=== PATIENT | male | born 1945 | race Caucasian/White ===

== ENCOUNTER 2018-03-04 16:34 | Inpatient (IN) | payer MEDICARE ==
[2018-03-04] MEDS ORDERED: SODIUM CHLORIDE 0.9% 1,000 ML IV STA ×2 (16:47→17:49)
[2018-03-04] MEDS ORDERED: ACETAMINOPHEN IV (For NPO) 1,000 MG in EMPTY BAG 1 BAG IVPB STA (17:23)
[2018-03-04] MEDS ORDERED: KETOROLAC 30 MG/ML 1 ML VIAL IVP STA (17:23)
--- NOTE | 2018-03-04 17:23 | ED ---
General Adult HPI - General Chief complaint: Shortness of Breath Stated complaint: SOB, Chills Time Seen by Provider: 03/04/18 16:47 Source: patient, RN notes reviewed, old records reviewed Mode of arrival: wheelchair Limitations: no limitations - History of Present Illness Initial comments: This is a 72-year-old male to the ER for evaluation per patient comes in for evaluation of fever chills cough and shortness of breath. No travel history no sick contacts. No significant drooling medical and medical history. Patient has history of CVA TIA hypertension, no known recent fevers no known illnesses no known sick contacts. Patient has no recent hospitalizations. Patient states he just had some chills fevers and cough today wasn't feeling well denies abdominal pain, patient does have chronic hidradenitis and wound care to those areas - Related Data Home Medications Medication Instructions Recorded Confirmed Aspirin EC [Ecotrin Low Dose] 81 mg PO DAILY 03/04/18 03/04/18 Chlorpheniramine Maleate 4 mg PO DAILY PRN 03/04/18 03/04/18 Ferrous Sulfate [Feosol] 325 mg PO BID 03/04/18 03/04/18 Finasteride [Proscar] 5 mg PO DAILY 03/04/18 03/04/18 Metoprolol Succinate (ER) [Toprol 100 mg PO DAILY 03/04/18 03/04/18 Xl] Riboflavin [Vitamin B-2] 50 mg PO DAILY 03/04/18 03/04/18 Warfarin [Coumadin] 2 mg PO BID 03/04/18 03/04/18 Allergies Allergy/AdvReac Type Severity Reaction Status Date / Time No Known Allergies Allergy Verified 03/04/18 17:06 Review of Systems ROS Statement: Those systems with pertinent positive or pertinent negative responses have been documented in the HPI. ROS Other: All systems not noted in ROS Statement are negative. Past Medical History Past Medical History: CVA/TIA, Hypertension History of Any Multi-Drug Resistant Organisms: None Reported Additional Past Surgical History / Comment(s): cyst removal Past Psychological History: No Psychological Hx Reported Smoking Status: Never smoker Past Alcohol Use History: None Reported Past Drug Use History: None Reported General Exam Limitations: no limitations General appearance: alert, in no apparent distress, anxious, lethargic Head exam: Present: atraumatic, normocephalic, normal inspection Eye exam: Present: normal appearance, PERRL, EOMI. Absent: scleral icterus, conjunctival injection, periorbital swelling ENT exam: Present: normal exam, mucous membranes dry Neck exam: Present: normal inspection. Absent: tenderness, meningismus, lymphadenopathy Respiratory exam: Present: accessory muscle use, decreased breath sounds, prolonged expiratory. Absent: normal lung sounds bilaterally, respiratory distress, wheezes, rales, rhonchi, stridor Cardiovascular Exam: Present: normal rhythm, tachycardia, normal heart sounds. Absent: systolic murmur, diastolic murmur, rubs, gallop, clicks GI/Abdominal exam: Present: soft, normal bowel sounds. Absent: distended, tenderness, guarding, rebound, rigid Extremities exam: Present: normal inspection, full ROM, normal capillary refill. Absent: tenderness, pedal edema, joint swelling, calf tenderness Back exam: Present: normal inspection Neurological exam: Present: alert, oriented X3, CN II-XII intact Psychiatric exam: Present: normal affect, normal mood Skin exam: Present: warm, dry, intact, normal color. Absent: rash Course Vital Signs 03/04/18 03/04/18 16:40 17:00 Temperature 100.0 F H Pulse Rate 107 H Respiratory 20 20 Rate Blood Pressure 124/74 O2 Sat by Pulse 99 Oximetry - Reevaluation(s) Reevaluation #1: 03/04/18 18:31 Patient symptoms are improved with fever control, significant IV resuscitation and breathing treatment EKG Findings - EKG Comments: EKG Findings:: EKG shows A. fib rate of 103, QRS 02, QTc 442 Medical Decision Making - Medical Decision Making 72 male the ER for evaluation regarding fever cough congestion shortness of breath, pneumonia on exam, patient has inconclusive x-ray will be admitted for IV antibiotics and breathing treatments. Patient also has significant skin wounds chronic healing wounds we'll cover with Vanco for possible MRSA - Lab Data Result diagrams: 03/04/18 17:09 03/04/18 17:09 Lab Results 03/04/18 03/04/18 03/04/18 Range/Units 17:09 17:09 17:09 WBC 11.8 H (3.8-10.6) k/uL RBC 3.57 L (4.30-5.90) m/uL Hgb 10.0 L (13.0-17.5) gm/dL Hct 32.6 L (39.0-53.0) % MCV 91.5 (80.0-100.0) fL MCH 28.1 (25.0-35.0) pg MCHC 30.8 L (31.0-37.0) g/dL RDW 15.2 (11.5-15.5) % Plt Count 329 (150-450) k/uL Neutrophils % 95 % Lymphocytes % 4 % Monocytes % 1 % Eosinophils % 0 % Basophils % 0 % Neutrophils # 11.1 H (1.3-7.7) k/uL Lymphocytes # 0.4 L (1.0-4.8) k/uL Monocytes # 0.1 (0-1.0) k/uL Eosinophils # 0.1 (0-0.7) k/uL Basophils # 0.0 (0-0.2) k/uL Hypochromasia Slight PT (9.0-12.0) sec INR (<1.2) APTT (22.0-30.0) sec Sodium 136 L (137-145) mmol/L Potassium 4.7 (3.5-5.1) mmol/L Chloride 107 (98-107) mmol/L Carbon Dioxide 20 L (22-30) mmol/L Anion Gap 9 mmol/L BUN 17 (9-20) mg/dL Creatinine 1.70 H (0.66-1.25) mg/dL Est GFR (CKD-EPI)AfAm 46 (>60 ml/min/1.73 sqM) Est GFR (CKD-EPI)NonAf 40 (>60 ml/min/1.73 sqM) Glucose 118 H (74-99) mg/dL Plasma Lactic Acid Mahad (0.7-2.0) mmol/L Calcium 8.0 L (8.4-10.2) mg/dL Magnesium 1.7 (1.6-2.3) mg/dL Total Bilirubin 0.5 (0.2-1.3) mg/dL AST 20 (17-59) U/L ALT 12 L (21-72) U/L Alkaline Phosphatase 155 H (38-126) U/L Total Creatine Kinase <20 L (55-170) U/L CK-MB (CK-2) 0.5 (0.0-2.4) ng/mL CK-MB (CK-2) Rel Index Troponin I <0.012 (0.000-0.034) ng/mL NT-Pro-B Natriuret Pep pg/mL Total Protein 9.3 H (6.3-8.2) g/dL Albumin 2.9 L (3.5-5.0) g/dL 03/04/18 03/04/18 03/04/18 Range/Units 17:09 17:09 17:09 WBC (3.8-10.6) k/uL RBC (4.30-5.90) m/uL Hgb (13.0-17.5) gm/dL Hct (39.0-53.0) % MCV (80.0-100.0) fL MCH (25.0-35.0) pg MCHC (31.0-37.0) g/dL RDW (11.5-15.5) % Plt Count (150-450) k/uL Neutrophils % % Lymphocytes % % Monocytes % % Eosinophils % % Basophils % % Neutrophils # (1.3-7.7) k/uL Lymphocytes # (1.0-4.8) k/uL Monocytes # (0-1.0) k/uL Eosinophils # (0-0.7) k/uL Basophils # (0-0.2) k/uL Hypochromasia PT 16.6 H (9.0-12.0) sec INR 1.8 H (<1.2) APTT 25.0 (22.0-30.0) sec Sodium (137-145) mmol/L Potassium (3.5-5.1) mmol/L Chloride (98-107) mmol/L Carbon Dioxide (22-30) mmol/L Anion Gap mmol/L BUN (9-20) mg/dL Creatinine (0.66-1.25) mg/dL Est GFR (CKD-EPI)AfAm (>60 ml/min/1.73 sqM) Est GFR (CKD-EPI)NonAf (>60 ml/min/1.73 sqM) Glucose (74-99) mg/dL Plasma Lactic Acid Mahad 4.0 H* (0.7-2.0) mmol/L Calcium (8.4-10.2) mg/dL Magnesium (1.6-2.3) mg/dL Total Bilirubin (0.2-1.3) mg/dL AST (17-59) U/L ALT (21-72) U/L Alkaline Phosphatase (38-126) U/L Total Creatine Kinase (55-170) U/L CK-MB (CK-2) (0.0-2.4) ng/mL CK-MB (CK-2) Rel Index Troponin I (0.000-0.034) ng/mL NT-Pro-B Natriuret Pep 4700 pg/mL Total Protein (6.3-8.2) g/dL Albumin (3.5-5.0) g/dL - Radiology Data Radiology results: report reviewed (Chest x-ray negative), image reviewed Disposition Clinical Impression: Community acquired pneumonia, Fever Narrative: r/o Bacteremia Disposition: ADMITTED IP TO THIS HOSP Condition: Fair Is patient prescribed a controlled substance at d/c from ED?: No Referrals: Rosmery Mcrae MD [Primary Care Provider] - 1-2 days
[2018-03-04 17:26] LABS: Basophils % (A) 0 %; Eosinophils # (A) 0.1 k/uL (0-0.7); Eosinophils % (A) 0 %; HCT 32.6 % (39.0-53.0); Hypochromasia Slight; Lymphocytes # (A) 0.4 k/uL (1.0-4.8); Lymphocytes % (A) 4 %; MCH 28.1 pg (25.0-35.0); MCHC 30.8 g/dL (31.0-37.0); MCV 91.5 fL (80.0-100.0); Mean Platelet Volume 7.7; Monocytes # (A) 0.1 k/uL (0-1.0); Monocytes % (A) 1 %; Neutrophils # (A) 11.1 k/uL (1.3-7.7); Neutrophils % (A) 95 %; Platelet Count 329 k/uL (150-450); RBC 3.57 m/uL (4.30-5.90); RDW 15.2 % (11.5-15.5); WBC 11.8 k/uL (3.8-10.6)
[2018-03-04 17:35] LABS: INR 1.8 (<1.2); Prothrombin Time 16.6 sec (9.0-12.0)
[2018-03-04 17:36] LABS: Albumin 2.9 g/dL (3.5-5.0); Total Protein 9.3 g/dL (6.3-8.2)
[2018-03-04] MEDS ORDERED: ACETAMINOPHEN TAB 500 MG TAB PO STA (17:36)
[2018-03-04 17:37] LABS: Magnesium 1.7 mg/dL (1.6-2.3); Potassium 4.7 mmol/L (3.5-5.1); Total Bilirubin 0.5 mg/dL (0.2-1.3)
[2018-03-04 17:46] LABS: Creatine Kinase <20 U/L (55-170)
[2018-03-04] MEDS ORDERED: SODIUM CHLORIDE 0.9% 2,000 ML IV STA (17:49)
--- NOTE | 2018-03-04 17:56 | XR ---
EXAMINATION: XR chest 2V DATE AND TIME: 03/04/2018 5:30 PM ORDERING PROVIDER: Tomi Hart DO CLINICAL INDICATION: difficulty breathing TECHNIQUE: PA and lateral COMPARISON: None. DESCRIPTION: The lungs are clear. The pleural spaces are negative. The cardiac silhouette is not enla rged. The mediastinal and pleural silhouettes are unremarkable. The skeletal structures are intact wi thout focal findings. The soft tissues are unremarkable. IMPRESSION: NO ACUTE PROCESS.
[2018-03-04 17:59] LABS: Creatine Kinase MB 0.5 ng/mL (0.0-2.4); Troponin I <0.012 ng/mL (0.000-0.034)
[2018-03-04] MEDS ORDERED: PNEUMONIA PROTOCOL UTILIZED 1 EACH MISC PO PRN (18:18)
[2018-03-04] MEDS ORDERED: LEVOFLOXACIN 750MG-D5W PMX 750 MG in DEXTROSE/WATER 1 150ML.BAG IVPB STA (18:23)
[2018-03-04] MEDS ORDERED: VANCOMYCIN IV PER PHARMACY 1 EACH MISC MISCELLANE PRN (18:23)
[2018-03-04] MEDS ORDERED: VANCOMYCIN 2,250 MG in SODIUM CHLORIDE 0.9% 500 ML IVPB ONE (19:00)
[2018-03-04] MEDS: SODIUM CHLORIDE 0.9% 1,000 ML IV SCH (19:16)
[2018-03-04] MEDS ORDERED: ACETAMINOPHEN TAB 325 MG TAB PO PRN (20:54)
[2018-03-04] MEDS ORDERED: LORATADINE 10 MG TAB PO PRN (20:56)
[2018-03-04] MEDS ORDERED: RIBOFLAVIN 50 MG PO SCH (21:00)
[2018-03-04] MEDS: FERROUS SULFATE 325 MG TAB PO SCH (22:14)
[2018-03-04] MEDS: WARFARIN 1 MG TAB PO SCH (22:14)
[2018-03-04] MEDS: METOPROLOL SUCCINATE (ER) 100 MG TAB.ER.24H PO SCH (22:14)
[2018-03-04] MEDS: ASPIRIN 81 MG PO SCH (22:14)
[2018-03-05 00:39] LABS: Appearance,Urine Cloudy (Clear); Bilirubin,Urine Negative (Negative); Blood,Urine Negative (Negative); Color,Urine Yellow; Glucose,Urine (UA) Negative (Negative); Hyaline Casts,Urine 12 /lpf (0-2); Ketones,Urine Negative (Negative); Leukocyte Esterase,Urine Negative (Negative); Mucus,Urine Occasional /hpf; Nitrite,Urine Negative (Negative); PH, Urine 5.5 (5.0-8.0); Protein,Urine 1+ (Negative); RBC,Urine 2 /hpf (0-5); Specific Gravity,Urine 1.017 (1.001-1.035); WBC,Urine 2 /hpf (0-5)
[2018-03-05 05:40] LABS: Basophils % (A) 0 %; Eosinophils # (A) 0.1 k/uL (0-0.7); Eosinophils % (A) 1 %; HCT 30.1 % (39.0-53.0); HGB 9.3 gm/dL (13.0-17.5); Hypochromasia Marked; Lymphocytes # (A) 0.5 k/uL (1.0-4.8); Lymphocytes % (A) 4 %; MCH 29.3 pg (25.0-35.0); MCHC 30.9 g/dL (31.0-37.0); MCV 94.8 fL (80.0-100.0); Mean Platelet Volume 7.8; Monocytes # (A) 0.4 k/uL (0-1.0); Monocytes % (A) 4 %; Neutrophils # (A) 10.6 k/uL (1.3-7.7); Neutrophils % (A) 91 %; Platelet Count 227 k/uL (150-450); RBC 3.17 m/uL (4.30-5.90); RDW 15.1 % (11.5-15.5); WBC 11.7 k/uL (3.8-10.6)
[2018-03-05 05:47] LABS: INR 2.2 (<1.2); Prothrombin Time 19.5 sec (9.0-12.0)
[2018-03-05] MEDS: SODIUM CHLORIDE 0.9% 1,000 ML IV SCH ×4 (06:16→23:12)
[2018-03-05] MEDS: FINASTERIDE 5 MG TAB PO SCH (07:35)
[2018-03-05] MEDS: FERROUS SULFATE 325 MG TAB PO SCH ×2 (07:35→19:58)
--- NOTE | 2018-03-05 08:08 | XR ---
EXAMINATION TYPE: XR chest 2V DATE OF EXAM: 03/05/2018 COMPARISON: 03/04/2018 TECHNIQUE: PA and lateral views submitted. HISTORY: Cough FINDINGS: The heart is enlarged and there is hyperinflation. No pleural effusion or pneumothorax no overt failu re. Hyperinflation suggests COPD. Subsegmental linear changes at the right lung base. IMPRESSION: 1. COPD. Right basilar atelectasis or early infiltrate. Correlate clinically
[2018-03-05] MEDS ORDERED: ENOXAPARIN 40 MG/0.4 ML SYRINGE SQ SCH (09:00)
--- NOTE | 2018-03-05 10:28 | P.PN ---
Progress Note - Text This is an addendum to the dictated cardiology consultation. The patient has a history of chronic persistent atrial fibrillation, sebaceous cyst who presents with symptoms of progressive dyspnea, chills and shaking. He denies any PND, orthopnea or significant peripheral edema. According to him he has no history of cough. He did not check his temperature home. He has no history of documented CAD or CHF. He has been having draining from the sebaceous cyst. On examination his lungs are clear and he is in atrial fibrillation with no evidence of peripheral edema. His presentation is consistent with sepsis probably related to an infected sebaceous cyst. Patient has been on Humira up to a month ago so he is immunocompromise. I see no clear evidence to suggest CHF at this time either by chest x-ray normal by examination. His NT proBNP is elevated. I will obtain an echocardiogram with Doppler, increase his IV fluids, continue anticoagulation. 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 Thank you for this consult we will follow with you.
--- NOTE | 2018-03-05 10:28 | P.CRDCN ---
History of Present Illness Consult date: 03/05/18 Requesting physician: Yanet Larkin Consult reason: atrial fibrillation Chief complaint: Chills and shakes History of present illness: This is a 72-year-old gentleman with history of hypertension, chronic persistent atrial fibrillation for which he takes Coumadin. 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 Patient also has history of sebaceous cysts, he states he was on Humira for approximately 3 years and one month ago this at been discontinued. Since then he states that he's had significant drainage from his sebaceous cysts. Patient presents to the hospital on this occasion with symptoms of chills and shaking, he also states that he's noticed some mild increase in shortness of breath over the past one week or so. Chest x-ray on admission did not reveal any acute process. Subsequent EKG showed COPD. Right basilar atelectasis or early infiltrate. EKG shows atrial fibrillation with rapid ventricular response. Temperature on arrival 100.0, blood pressure 124/ 70 with a heart rate in the low 100s, 99% on room air. Temperature this morning 97.5, blood pressure 134/70 with a heart rate in the 50s, 99% on room air. White blood cell count 11.7, hemoglobin 10.0 on admission, 9.3 this morning. Lately count 329 on admission, 227 this morning. INR 2.2. Sodium 136 , potassium 4.7, BUN 17, creatinine 1.7. Plasma lactic acid 4.0. Calcium 8.0. Magnesium 1.7. Alk phos 155. Troponin negative. BNP level 4700. At the time of my examination this morning, patient denies any chills, no jittery feeling. Breathing overall is stable. Past Medical History Past Medical History: Atrial Fibrillation, CVA/TIA, Hyperlipidemia, Hypertension , Pneumonia, Prostate Disorder, Skin Disorder History of Any Multi-Drug Resistant Organisms: None Reported Past Surgical History: Appendectomy, Tonsillectomy Additional Past Surgical History / Comment(s): cyst removal-..pt stated has dnsg on hips Past Anesthesia/Blood Transfusion Reactions: No Reported Reaction Smoking Status: Former smoker - Past Family History Father Family Medical History: No Reported History Additional Family Medical History / Comment(s): at age 94 form"old age" Mother Family Medical History: Cancer Additional Family Medical History / Comment(s): mom at age 67 from pancreatic cancer Medications and Allergies Home Medications Medication Instructions Recorded Confirmed Type Aspirin EC [Ecotrin Low Dose] 81 mg PO HS 03/04/18 03/04/18 History Chlorpheniramine Maleate 4 mg PO HS PRN 03/04/18 03/04/18 History Ferrous Sulfate [Feosol] 325 mg PO BID 03/04/18 03/04/18 History Finasteride [Proscar] 5 mg PO DAILY 03/04/18 03/04/18 History Metoprolol Succinate (ER) [Toprol 100 mg PO HS 03/04/18 03/04/18 History Xl] Riboflavin [Vitamin B-2] 50 mg PO HS 03/04/18 03/04/18 History Warfarin [Coumadin] 1 mg PO HS 03/04/18 03/04/18 History Allergies Allergy/AdvReac Type Severity Reaction Status Date / Time No Known Allergies Allergy Verified 03/04/18 17:06 Physical Exam Vitals: Vital Signs Temp Pulse Pulse Resp BP BP Pulse Ox 03/05/18 07:37 97.5 F L 58 L 18 134/75 99 03/05/18 04:00 97.4 F L 59 L 18 125/71 100 03/04/18 23:58 61 18 03/04/18 23:56 97.1 F L 61 18 116/52 98 03/04/18 20:00 97.5 F L 78 18 139/83 97 03/04/18 19:56 98.6 F 98 20 101/56 99 03/04/18 18:45 100 20 100/56 98 03/04/18 18:15 110 H 20 100/63 98 03/04/18 18:00 100 20 104/57 100 03/04/18 17:45 105 H 20 116/71 99 03/04/18 17:30 113 H 20 120/76 99 03/04/18 17:15 108 H 20 120/78 98 03/04/18 17:00 105 H 20 112/80 98 03/04/18 16:55 114 H 20 114/70 99 03/04/18 16:40 100.0 F H 107 H 20 124/74 99 Intake and Output 03/04/18 03/05/18 03/05/18 22:59 06:59 14:59 Intake Total 800 Balance 800 Intake: IV 800 0.9 800 Other: Voiding Method Toilet Toilet Urinal Urinal Weight 104.326 kg 106.3 kg PHYSICAL EXAMINATION: GENERAL: 72-year-old gentleman in no acute distress examination. HEENT: Head is atraumatic, normocephalic. Pupils equal, round. Sclera anicteric. Conjunctiva are clear. Mucous membranes of the mouth are moist. Neck is supple. There is no elevated jugular venous pressure. No carotid bruit is heard. HEART EXAMINATION: Heart S1 and S2 irregularly irregular CHEST EXAMINATION: Lungs reveal fine crackles to bilateral bases. ABDOMEN: Soft, nontender. Bowel sounds are heard. No organomegaly noted. EXTREMITIES: 2+ peripheral pulses with no evidence of peripheral edema and no calf tenderness noted. NEUROLOGIC patient is awake, alert and oriented ?-3. . Results 03/05/18 05:26 03/04/18 17:09 Cardiac Enzymes 03/04/18 03/04/18 Range/Units 17:09 17:09 AST 20 (17-59) U/L CK-MB (CK-2) 0.5 (0.0-2.4) ng/mL Troponin I <0.012 (0.000-0.034) ng/mL Coagulation 03/04/18 03/05/18 Range/Units 17:09 05:26 PT 16.6 H 19.5 H (9.0-12.0) sec APTT 25.0 (22.0-30.0) sec CBC 03/04/18 03/05/18 Range/Units 17:09 05:26 WBC 11.8 H 11.7 H (3.8-10.6) k/uL RBC 3.57 L 3.17 L (4.30-5.90) m/uL Hgb 10.0 L 9.3 L (13.0-17.5) gm/dL Hct 32.6 L 30.1 L (39.0-53.0) % Plt Count 329 227 (150-450) k/uL Comprehensive Metabolic Panel 03/04/18 Range/Units 17:09 Sodium 136 L (137-145) mmol/L Potassium 4.7 (3.5-5.1) mmol/L Chloride 107 (98-107) mmol/L Carbon Dioxide 20 L (22-30) mmol/L BUN 17 (9-20) mg/dL Creatinine 1.70 H (0.66-1.25) mg/dL Glucose 118 H (74-99) mg/dL Calcium 8.0 L (8.4-10.2) mg/dL AST 20 (17-59) U/L ALT 12 L (21-72) U/L Alkaline Phosphatase 155 H (38-126) U/L Total Protein 9.3 H (6.3-8.2) g/dL Albumin 2.9 L (3.5-5.0) g/dL Current Medications Generic Name Dose Route Start Last Admin Trade Name Freq PRN Reason Stop Dose Admin Acetaminophen 650 mg 03/04/18 20:54 Tylenol Tab PO Q6HR PRN Fever and/ or Pain Albuterol/Ipratropium 3 ml 03/04/18 18:23 Duoneb 0.5 Mg-3 Mg/3 Ml Soln INHALATION RT-Q4H PRN shortness of breath Aspirin 81 mg 03/04/18 22:00 03/04/18 22:14 Aspirin PO 81 mg HS AZUCENA Administration Ferrous Sulfate 325 mg 03/04/18 21:00 03/05/18 07:35 Feosol PO 325 mg BID AZUCENA Administration Finasteride 5 mg 03/05/18 09:00 03/05/18 07:35 Proscar PO 5 mg DAILY AZUCENA Administration Levofloxacin 750 mg/ IV 150 mls @ 100 mls/hr 03/06/18 18:00 Solution IVPB Q48H AZUCENA Sodium Chloride 1,000 mls @ 100 mls/hr 03/04/18 18:30 03/05/18 06:16 Saline 0.9% IV 100 mls/hr .Q10H AZUCENA Administration Vancomycin HCl 1,750 mg/ 500 mls @ 167 mls/hr 03/05/18 21:00 Sodium Chloride IVPB Q24H AZUCENA Loratadine 10 mg 03/04/18 20:56 Claritin PO HS PRN Allergy Symptoms Metoprolol Succinate 100 mg 03/04/18 21:00 03/04/18 22:14 Toprol Xl PO 100 mg HS AZUCENA Administration Miscellaneous Information 1 each 03/04/18 18:18 Pneumonia Protocol Utilized PO ONCE PRN Per Protocol Warfarin Sodium 1 mg 03/04/18 21:00 03/04/18 22:14 Coumadin PO 1 mg HS AZUCENA Administration Intake and Output 03/04/18 03/05/18 03/05/18 22:59 06:59 14:59 Intake Total 800 Balance 800 Intake: IV 800 0.9 800 Other: Voiding Method Toilet Toilet Urinal Urinal Weight 104.326 kg 106.3 kg 03/05/18 05:26 03/04/18 17:09 EKG Interpretations (text) EKG on arrival here shows atrial fibrillation with moderately rapid ventricular response. Assessment and Plan Plan: Assessment and plan #1 sepsis, exact etiology unknown, could be secondary to sebaceous cyst infection. Lactic acid 4.0. #2 chronic persistent atrial fibrillation, on Coumadin for anticoagulation, therapeutic INR #3 hypertension #4 no prior documented coronary artery disease according to the patient #5 history of sebaceous cysts for which patient had been on Humira for 3 years, recently discontinued one month ago. #6 anemia #7 mildly abnormal renal function, creatinine 1.7. Plan We will continue current dose of Coumadin, obtain echocardiogram with Doppler study. We will also obtain records from patient's prior entertainer & comic. Further recommendations to follow. DNP note has been reviewed, I agree with a documented findings and plan of care. Patient was seen and examined.
[2018-03-05] MEDS ORDERED: SODIUM CHLORIDE 0.9% 1,000 ML IV SCH (10:30)
--- NOTE | 2018-03-05 11:27 | ECHOF ---
Referral Reason:afib MEASUREMENTS -------- HEIGHT: 182.9 cm WEIGHT: 106.1 kg BP: RVIDd: 4.0 cm (< 3.3) IVSd: 1.8 cm (0.6 - 1.1) LVIDd: 4.6 cm (3.9 - 5.3) LVPWd: 1.7 cm (0.6 - 1.1) IVSs: 2.3 cm LVIDs: 3.1 cm LVPWs: 2.3 cm LAESV Index (A-L): 45.76 ml/m Ao Diam: 3.7 cm (2.0 - 3.7) AV Cusp: 2.4 cm (1.5 - 2.6) LA Diam: 4.8 cm (2.7 - 3.8) MV EXCURSION: 21.692 mm (> 18.000) MV EF SLOPE: 144 mm/s (70 - 150) EPSS: 0.8 cm RAP: 5.00 mmHg RVSP: 57.01 mmHg FINDINGS -------- Atrial fibrillation. This was a technically good study. The left ventricular size is normal. There is severe concentric left ventricular hypertrophy. Ove rall left ventricular systolic function is normal with, an EF between 55 - 60 %. The right ventricle is moderately enlarged. LA is severely dilated >40 ml/m2 RA appears enlarged. Aortic valve is trileaflet and is mildly thickened. Moderate mitral regurgitation is present. Moderate to severe tricuspid regurgitation present. There is moderate pulmonary hypertension. The right ventricular systolic pressure, as measured by Doppler, is 57.01mmHg. Pulmonic valve appears structurally normal. The aortic root size is normal. The inferior vena cava is mildly dilated. The pericardium is normal. CONCLUSIONS -------- 1. Atrial fibrillation. 2. This was a technically good study. 3. The left ventricular size is normal. 4. There is severe concentric left ventricular hypertrophy. 5. Overall left ventricular systolic function is normal with, an EF between 55 - 60 %. 6. The right ventricle is moderately enlarged. 7. LA is severely dilated >40 ml/m2 8. RA appears enlarged. 9. Aortic valve is trileaflet and is mildly thickened. 10. Moderate mitral regurgitation is present. 11. Moderate to severe tricuspid regurgitation present. 12. There is moderate pulmonary hypertension. 13. The right ventricular systolic pressure, as measured by Doppler, is 57.01mmHg. 14. Pulmonic valve appears structurally normal. 15. The aortic root size is normal. 16. The inferior vena cava is mildly dilated. 17. The pericardium is normal. DATA ENTRY ASSISTANT: Faustina Manzo RDCS
[2018-03-05] MEDS: PANTOPRAZOLE 40 MG TABLET PO SCH (11:50)
--- NOTE | 2018-03-05 12:01 | P.HPIM ---
Addendum entered and electronically signed by Dian Page PA-C 03/05/18 12: 02: Possible acute kidney injury: Creatinine 1.7 on admission. Baseline creatinine unknown. Continue with IV fluid hydration. Monitor closely while on vancomycin. Original Note: History of Present Illness H&P Date: 03/05/18 Chief Complaint: Severe chills This is a 72-year-old male, patient of Dr. Mcrae. He has a known past medical history of chronic sebaceous cysts of the thighs, hypertension and CVA. Patient reports he had been in good health yesterday afternoon started having severe chills and could not get warm. Reports that his teeth were chattering. He called his son and his son brought him into the emergency room. He is found to have a temp of 100 and initially started on Levaquin for possible pneumonia. Vancomycin also added because of the chronic sebaceous cysts and concerns for MRSA. His second chest x-ray showed a possible early infiltrate. Infectious disease and cardiology consulted. Patient did have elevated BNP of 4200 on admission. Troponins were negative. Patient seen by cardiology. They recommend to continue with fluids for patient's sepsis. Patient was on Humira for these sebaceous cysts. He stopped them about a month ago. And since then has had more drainage from the cyst. Patient denies any chest pain or cough. Does admit to having some shortness of breath. White count admission 11.8 lactic acid 4 fever of 100. His receiving IV vancomycin and Levaquin and IV fluids. Blood cultures pending. Review of Systems Please refer to HPI otherwise unremarkable Past Medical History Past Medical History: Atrial Fibrillation, CVA/TIA, Hyperlipidemia, Hypertension , Pneumonia, Prostate Disorder, Skin Disorder History of Any Multi-Drug Resistant Organisms: None Reported Past Surgical History: Appendectomy, Tonsillectomy Additional Past Surgical History / Comment(s): cyst removal-..pt stated has dnsg on hips Past Anesthesia/Blood Transfusion Reactions: No Reported Reaction Smoking Status: Former smoker - Past Family History Father Family Medical History: No Reported History Additional Family Medical History / Comment(s): at age 94 form"old age" Mother Family Medical History: Cancer Additional Family Medical History / Comment(s): mom at age 67 from pancreatic cancer Medications and Allergies Home Medications Medication Instructions Recorded Confirmed Type Aspirin EC [Ecotrin Low Dose] 81 mg PO HS 03/04/18 03/04/18 History Chlorpheniramine Maleate 4 mg PO HS PRN 03/04/18 03/04/18 History Ferrous Sulfate [Feosol] 325 mg PO BID 03/04/18 03/04/18 History Finasteride [Proscar] 5 mg PO DAILY 03/04/18 03/04/18 History Metoprolol Succinate (ER) [Toprol 100 mg PO HS 03/04/18 03/04/18 History Xl] Riboflavin [Vitamin B-2] 50 mg PO HS 03/04/18 03/04/18 History Warfarin [Coumadin] 1 mg PO HS 03/04/18 03/04/18 History Allergies Allergy/AdvReac Type Severity Reaction Status Date / Time No Known Allergies Allergy Verified 03/04/18 17:06 Physical Exam Vitals: Vital Signs Temp Pulse Pulse Resp BP BP Pulse Ox 03/05/18 11:44 97.2 F L 63 18 117/63 96 03/05/18 07:37 97.5 F L 58 L 18 134/75 99 03/05/18 04:00 97.4 F L 59 L 18 125/71 100 03/04/18 23:58 61 18 03/04/18 23:56 97.1 F L 61 18 116/52 98 03/04/18 20:00 97.5 F L 78 18 139/83 97 03/04/18 19:56 98.6 F 98 20 101/56 99 03/04/18 18:45 100 20 100/56 98 03/04/18 18:15 110 H 20 100/63 98 03/04/18 18:00 100 20 104/57 100 03/04/18 17:45 105 H 20 116/71 99 03/04/18 17:30 113 H 20 120/76 99 03/04/18 17:15 108 H 20 120/78 98 03/04/18 17:00 105 H 20 112/80 98 03/04/18 16:55 114 H 20 114/70 99 03/04/18 16:40 100.0 F H 107 H 20 124/74 99 Intake and Output 03/04/18 03/05/18 03/05/18 22:59 06:59 14:59 Intake Total 800 Balance 800 Intake: IV 800 0.9 800 Other: Voiding Method Toilet Toilet Urinal Urinal Weight 104.326 kg 106.3 kg Head normocephalic Neck supple Lungs clear to auscultation bilaterally no wheezing or crackles Heart regular rate and rhythm S1-S2, no rub or gallop Abdomen is soft nontender nondistended positive bowel sounds no hepatosplenomegaly Extremities no edema. Both thighs have sebaceous cysts that are bandaged. The visualized right hip showing cysts that are open and bloody drainage. Also chronic changes to the skin. Neuro alert and orientated to 3 Results CBC & Chem 7: 03/05/18 05:26 03/04/18 17:09 Labs: Abnormal Lab Results - Last 24 Hours (Table) 03/04/18 03/04/18 03/04/18 Range/Units 17:09 17:09 17:09 WBC 11.8 H (3.8-10.6) k/uL RBC 3.57 L (4.30-5.90) m/uL Hgb 10.0 L (13.0-17.5) gm/dL Hct 32.6 L (39.0-53.0) % MCHC 30.8 L (31.0-37.0) g/dL Neutrophils # 11.1 H (1.3-7.7) k/uL Lymphocytes # 0.4 L (1.0-4.8) k/uL PT (9.0-12.0) sec INR (<1.2) Sodium 136 L (137-145) mmol/L Carbon Dioxide 20 L (22-30) mmol/L Creatinine 1.70 H (0.66-1.25) mg/dL Glucose 118 H (74-99) mg/dL Plasma Lactic Acid Mahad (0.7-2.0) mmol/L Calcium 8.0 L (8.4-10.2) mg/dL ALT 12 L (21-72) U/L Alkaline Phosphatase 155 H (38-126) U/L Total Creatine Kinase <20 L (55-170) U/L Total Protein 9.3 H (6.3-8.2) g/dL Albumin 2.9 L (3.5-5.0) g/dL Urine Protein (Negative) Hyaline Casts (0-2) /lpf Urine Mucus (None) /hpf 03/04/18 03/04/1818 Range/Units 17:09 17:09 00:25 WBC (3.8-10.6) k/uL RBC (4.30-5.90) m/uL Hgb (13.0-17.5) gm/dL Hct (39.0-53.0) % MCHC (31.0-37.0) g/dL Neutrophils # (1.3-7.7) k/uL Lymphocytes # (1.0-4.8) k/uL PT 16.6 H (9.0-12.0) sec INR 1.8 H (<1.2) Sodium (137-145) mmol/L Carbon Dioxide (22-30) mmol/L Creatinine (0.66-1.25) mg/dL Glucose (74-99) mg/dL Plasma Lactic Acid Mahad 4.0 H* (0.7-2.0) mmol/L Calcium (8.4-10.2) mg/dL ALT (21-72) U/L Alkaline Phosphatase (38-126) U/L Total Creatine Kinase (55-170) U/L Total Protein (6.3-8.2) g/dL Albumin (3.5-5.0) g/dL Urine Protein 1+ H (Negative) Hyaline Casts 12 H (0-2) /lpf Urine Mucus Occasional H (None) /hpf 03/05/18 03/05/18 Range/Units 05:26 05:26 WBC 11.7 H (3.8-10.6) k/uL RBC 3.17 L (4.30-5.90) m/uL Hgb 9.3 L (13.0-17.5) gm/dL Hct 30.1 L (39.0-53.0) % MCHC 30.9 L (31.0-37.0) g/dL Neutrophils # 10.6 H (1.3-7.7) k/uL Lymphocytes # 0.5 L (1.0-4.8) k/uL PT 19.5 H (9.0-12.0) sec INR 2.2 H (<1.2) Sodium (137-145) mmol/L Carbon Dioxide (22-30) mmol/L Creatinine (0.66-1.25) mg/dL Glucose (74-99) mg/dL Plasma Lactic Acid Mahad (0.7-2.0) mmol/L Calcium (8.4-10.2) mg/dL ALT (21-72) U/L Alkaline Phosphatase (38-126) U/L Total Creatine Kinase (55-170) U/L Total Protein (6.3-8.2) g/dL Albumin (3.5-5.0) g/dL Urine Protein (Negative) Hyaline Casts (0-2) /lpf Urine Mucus (None) /hpf Microbiology - Last 24 Hours (Table) 03/05/18 00:25 Urine Culture - Preliminary Urine,Voided Thrombosis Risk Factor Assmnt - Choose All That Apply Any of the Below Risk Factors Present?: No Other Risk Factors: Yes Each Risk Factor Represents 2 Points: Age 61-74 years Other congenital or acquired thrombophilia - If yes, enter type in comment: No Thrombosis Risk Factor Assessment Total Risk Factor Score: 2 Thrombosis Risk Factor Assessment Level: Low Risk Assessment and Plan Assessment: 1. Sepsis present on admission with fever and leukocytosis. Patient had a lactic acid level of 4. Sepsis possibly related to sebaceous cyst infection or questionable pneumonia. Patient started on Levaquin and vancomycin in the ER. Infectious disease consulted. Blood culture pending. Continue with IV fluids 2. Chronic persistent atrial fibrillation anticoagulated with Coumadin INR therapeutic. Continue with current Coumadin dose 3. Anemia with known iron deficiency anemia. Continue iron supplement. Check iron studies. Also check stool for occult blood. Patient does report a colonoscopy about 2 years ago with polyps. He does occasionally have black stools. 4. History of sebaceous cysts of the thighs was on Humira which was discontinued about a month ago. Follows up with Dr. Wisdom and has had drainage of these cysts. Patient will be evaluated by infectious disease 5. Essential hypertension 6. History of CVA 7. Moderate pulmonary hypertension and moderate to severe tricuspid regurgitation noted on echo GI prophylaxis Protonix and DVT prophylaxis Coumadin Time with Patient: Greater than 30 (Greater than 60% of the total time spent in counseling and coordination of care.I performed an examination of the patient and discussed their management with the physician Drive In Teller. I have reviewed the Physician Drive In Teller's notes and agree with the documented findings and plan of care)
[2018-03-05 12:17] LABS: Calcium 7.7 mg/dL (8.4-10.2); Potassium 5.5 mmol/L (3.5-5.1)
[2018-03-05] MEDS ORDERED: SODIUM POLYSTYRENE SULFONATE 15 GM/60 ML BOTTLE PO STA (16:38)
[2018-03-05 17:05] LABS: Iron Saturation 11.48 (15.00-50.00)
[2018-03-05] MEDS: VANCOMYCIN 1,750 MG in SODIUM CHLORIDE 0.9% 500 ML IVPB SCH (19:57)
[2018-03-05] MEDS: ASPIRIN 81 MG PO SCH (19:58)
[2018-03-05] MEDS: METOPROLOL SUCCINATE (ER) 100 MG TAB.ER.24H PO SCH (19:58)
[2018-03-05] MEDS: WARFARIN 1 MG TAB PO SCH (19:58)
[2018-03-05] MEDS: IPRATROPIUM-ALBUTEROL 3 ML NEB INHALATION PRN (23:44)
[2018-03-06] MEDS: cefTRIAXone IN SWFI 1,000 MG/10 ML SYRINGE IVP SCH ×2 (00:06→23:46)
--- NOTE | 2018-03-06 05:13 | CONS ---
CONSULTATION DATE OF SERVICE: 03/05/2018. REASON FOR CONSULTATION: Fever and sepsis. HISTORY OF PRESENT ILLNESS: The patient is a 72-year-old, male, well known to my service. The patient did have a history of hidradenitis suppurativa with multiple lesions mostly around the gluteal area for which the patient has been under the care of Dr. Alexandre dermatology and the patient has been on Humira for couple of years now. Apparently the patient was noticed to have no significant improvement in his lesions, hence the Humira has been put on hold for about a month now. The patient says he has more serous drainage from his wounds on the bilateral gluteal and thigh area. Humira has been put on hold. The patient was doing okay yesterday morning, however in the afternoon, started having the rigors and chills with teeth chattering and feeling very weak. With these symptoms, the patient was brought in to the [facility] ER for further evaluation. On arrival to the ER, the patient did have a low-grade fever of 100. The patient's white count was elevated at 11.8. The patient did have a UA that was negative. The patient initially chest x-ray reported to be no acute process. Repeat x-ray done this morning is showing a right basilar infiltrate. Correlate clinically. The patient has been started on Levaquin. Vancomycin has been added for possible infected wound. Infectious Disease was consulted for further recommendation of antibiotic therapy. The patient currently did have very mild cough, but not bringing up any sputum. No chest pain. Denies any worsening pain to his wound area. No urinary symptoms and no diarrhea. REVIEW OF SYSTEMS: Constitutional: Positive for weakness along with rigors and chills. Eyes: No complaint. ENT no complaint. Respiratory as per HPI Cardiovascular: No complaint. Genitourinary no complaint. Gastrointestinal: No complaint. Musculoskeletal no complaint. INTEGUMENTARY: As per HPI. Psychological: No complaint. Endocrine: No complaint. Neurologic: No complaint. PAST MEDICAL HISTORY: Significant for hidradenitis suppurativa, history of atrial fibrillation, CVA, TIA, hypertension, hyperlipidemia, and prostate disorder. PAST SURGICAL HISTORY: Appendectomy, tonsillectomy, multiple debridement of his wounds. SOCIAL HISTORY: Remote history of smoking. No drinking or drug use. FAMILY HISTORY: Father of old age at 94. Mother history of pancreatic cancer. ALLERGIES: No known drug allergies. MEDICATION: Currently include the patient is on Tylenol, DuoNeb, aspirin, iron sulfate. Proscar, Levaquin 750 Q 48, Claritin, Toprol-XL, Protonix, vancomycin and Coumadin. EXAMINATION: Blood pressure is 142/58 with a pulse of 87, temperature of 98, T-max is 100. He is 97% on room air. General description is an elderly male lying in bed in no distress. No tachypnea or accessory muscles of respiration use. HEENT: Shows pallor. No scleral icterus. Oral mucous membrane is dry. He has no pharyngeal erythema or thrush. Neck: Trachea is central. No thyromegaly. Lungs unlabored breathing with decreased breath sounds in the bases. No wheeze or crackles. Heart S1-S2 regular rate and rhythm. ABDOMEN: Soft, no tenderness. No guarding or rigidity. Extremities: No edema of feet. Examination of the wound on the gluteal area currently with no significant cellulitis or any drainage was noted. Neurological: Patient is awake, alert, oriented times three. Mood and affect normal. LABS: Hemoglobin is 10 with white count 11.8. His BUN is 19, creatinine 1.80. Potassium was 5.5. Lactic acid was 4. Liver enzymes are normal. The urine is negative. Chest x-ray developing right lower lobe infiltrate. DIAGNOSTIC IMPRESSION AND PLAN: 1. Patient admitted to the hospital with generalized weakness with rigors and chills in a patient who did have a fever and features of sepsis with elevated white count and lactic acid. Source is likely a right lower lobe pneumonia. However, infected wound not entirely excluded to be the likely secondary source. We will need to cover for the community-acquired pathogen as well as composite skin ronald for the underlying possible cellulitis. His abdomen was soft on clinical examination and urine was not significantly positive making those two the less likely sources. 2. Patient who does have a borderline kidney function . PLAN: 1. We will try to obtain sputum for Gram stain culture and sensitivity. 2. The patient will be treated with vancomycin pharmacy to dose, target of 15. However watching his kidney function closely to cover for the wound infection and cellulitis. 3. Rocephin 1 g daily will be added and continue Levaquin for underlying possible pneumonia likely community-acquired. 4. Local wound care with Aquacel Silver dressing. 5. We will follow up on clinical condition and culture to further adjust medication if needed. Thank you for this consultation. We will follow this patient along with you. MMODL / IJN: [id number] /
[2018-03-06 06:25] LABS: Basophils % (A) 0 %; Eosinophils % (A) 1 %; HGB 8.5 gm/dL (13.0-17.5); Hypochromasia Marked; Lymphocytes # (A) 0.5 k/uL (1.0-4.8); Lymphocytes % (A) 7 %; MCH 28.5 pg (25.0-35.0); MCHC 30.2 g/dL (31.0-37.0); MCV 94.4 fL (80.0-100.0); Mean Platelet Volume 8.1; Monocytes # (A) 0.4 k/uL (0-1.0); Monocytes % (A) 5 %; Neutrophils # (A) 6.1 k/uL (1.3-7.7); Neutrophils % (A) 85 %; Platelet Count 209 k/uL (150-450); RBC 2.97 m/uL (4.30-5.90); RDW 15.3 % (11.5-15.5); WBC 7.2 k/uL (3.8-10.6)
[2018-03-06 06:31] LABS: INR 2.3 (<1.2); Prothrombin Time 20.4 sec (9.0-12.0)
[2018-03-06 06:42] LABS: Albumin 2.3 g/dL (3.5-5.0); Calcium 7.7 mg/dL (8.4-10.2); Potassium 4.6 mmol/L (3.5-5.1); Total Bilirubin 0.4 mg/dL (0.2-1.3); Total Protein 7.9 g/dL (6.3-8.2)
[2018-03-06] MEDS: IPRATROPIUM-ALBUTEROL 3 ML NEB INHALATION PRN (06:57)
[2018-03-06] MEDS: FINASTERIDE 5 MG TAB PO SCH (07:58)
[2018-03-06] MEDS: PANTOPRAZOLE 40 MG TABLET PO SCH (07:58)
[2018-03-06] MEDS: FERROUS SULFATE 325 MG TAB PO SCH ×2 (07:59→21:23)
[2018-03-06] MEDS: MAGNESIUM SULFATE-D5W PMX 1 GM in DEXTROSE/WATER 1 100ML.BAG IVPB SCH ×2 (09:33→10:42)
[2018-03-06] MEDS ORDERED: IPRATROPIUM-ALBUTEROL 3 ML NEB INHALATION PRN (10:23)
--- NOTE | 2018-03-06 10:39 | P.PN ---
<Dian Page - Last Filed: 03/06/18 10:25> Subjective Progress Note Date: 03/06/18 This is a 72-year-old male, patient of Dr. Mcrae. He has a known past medical history of chronic sebaceous cysts of the thighs, hypertension and CVA. Patient reports he had been in good health yesterday afternoon started having severe chills and could not get warm. Reports that his teeth were chattering. He called his son and his son brought him into the emergency room. He is found to have a temp of 100 and initially started on Levaquin for possible pneumonia. Vancomycin also added because of the chronic sebaceous cysts and concerns for MRSA. His second chest x-ray showed a possible early infiltrate. Infectious disease and cardiology consulted. Patient did have elevated BNP of 4200 on admission. Troponins were negative. Patient seen by cardiology. They recommend to continue with fluids for patient's sepsis. Patient was on Humira for these sebaceous cysts. He stopped them about a month ago. And since then has had more drainage from the cyst. Patient denies any chest pain or cough. Does admit to having some shortness of breath. White count admission 11.8 lactic acid 4 fever of 100. His receiving IV vancomycin and Levaquin and IV fluids. Blood cultures pending. 03/06/2018 patient had a 25 beat run of V. tach this morning. He is currently normal sinus rhythm. Magnesium was 1.6 likely the contributing factor to the nonsustained V. tach. He is receiving magnesium supplement. Patient did have some shortness of breath at that time. Also, patient had a drop in his oxygen saturation last night and had to be placed on the Ventimask for short period time. He received a breathing treatment. And is now on 5 L oxygen satting at 94%. Patient reports that his breathing is improving. Still denies cough. But on exam there are some coarse breath sounds. Repeat chest x-ray ordered. Patient does report having a past history of smoking and COPD. Objective - Vital Signs Vital signs: Vital Signs Temp 97.1 F L 03/06/18 08:00 Pulse 93 03/06/18 08:00 Resp 20 03/06/18 08:00 BP 111/61 03/06/18 08:00 Pulse Ox 94 L 03/06/18 08:00 Intake & Output 03/05/18 03/06/18 03/06/18 18:59 06:59 18:59 Intake Total 240 480 300 Output Total 600 Balance 240 -120 300 Weight 106.5 kg Intake: Oral 240 480 300 Output: Urine 600 Other: Voiding Method Toilet Urinal - Exam Head normocephalic Neck supple Lungs coarse breath sounds on the left Heart irregular. A. fib on monitor Abdomen is soft nontender nondistended positive bowel sounds no hepatosplenomegaly Extremities no edema Neuro alert and orientated to 3 - Labs CBC & Chem 7: 03/06/18 05:54 03/06/18 05:54 Labs: Abnormal Lab Results - Last 24 Hours (Table) 03/04/18 03/05/18 03/06/18 Range/Units 17:09 05:26 05:54 RBC 2.97 L (4.30-5.90) m/uL Hgb 8.5 L (13.0-17.5) gm/dL Hct 28.0 L (39.0-53.0) % MCHC 30.2 L (31.0-37.0) g/dL Lymphocytes # 0.5 L (1.0-4.8) k/uL PT (9.0-12.0) sec INR (<1.2) Sodium (137-145) mmol/L Potassium 5.5 H (3.5-5.1) mmol/L Chloride 113 H (98-107) mmol/L Carbon Dioxide 20 L (22-30) mmol/L Creatinine 1.80 H (0.66-1.25) mg/dL Glucose 100 H (74-99) mg/dL Calcium 7.7 L (8.4-10.2) mg/dL Iron 28 L (65-175) ug/dL Iron Saturation 11.48 L (15.00-50.00) ALT (21-72) U/L Alkaline Phosphatase (38-126) U/L Albumin (3.5-5.0) g/dL 03/06/18 03/06/18 Range/Units 05:54 05:54 RBC (4.30-5.90) m/uL Hgb (13.0-17.5) gm/dL Hct (39.0-53.0) % MCHC (31.0-37.0) g/dL Lymphocytes # (1.0-4.8) k/uL PT 20.4 H (9.0-12.0) sec INR 2.3 H (<1.2) Sodium 135 L (137-145) mmol/L Potassium (3.5-5.1) mmol/L Chloride 111 H (98-107) mmol/L Carbon Dioxide 18 L (22-30) mmol/L Creatinine 1.60 H (0.66-1.25) mg/dL Glucose (74-99) mg/dL Calcium 7.7 L (8.4-10.2) mg/dL Iron (65-175) ug/dL Iron Saturation (15.00-50.00) ALT 18 L (21-72) U/L Alkaline Phosphatase 164 H (38-126) U/L Albumin 2.3 L (3.5-5.0) g/dL Microbiology - Last 24 Hours (Table) 03/05/18 00:25 Urine Culture - Final Urine,Voided 03/06/18 00:04 Sputum Culture - Preliminary Sputum 03/04/18 17:09 Blood Culture - Preliminary Blood No Growth after 24 hours Assessment and Plan Assessment: 1. Sepsis present on admission with fever and leukocytosis. Patient had a lactic acid level of 4. Sepsis possibly related pneumonia and sebaceous cysts of the thighs. Patient seen evaluated by infectious disease. The antibiotics adjusted. Currently on Levaquin and Rocephin and vancomycin. Blood cultures are negative so far. Repeat chest x-ray. White count decreased from 11.7-7.2 2. Chronic persistent atrial fibrillation anticoagulated with Coumadin INR therapeutic. Continue with current Coumadin dose 3. Anemia with known iron deficiency anemia. Continue iron supplement. Iron level 28 and iron saturation 11.48 Also check stool for occult blood. Patient does report a colonoscopy about 2 years ago with polyps. He does occasionally have black stools. Hemoglobin 8.5 4. History of sebaceous cysts of the thighs was on Humira which was discontinued about a month ago. Follows up with Dr. Wisdom and has had drainage of these cysts. Patient will be evaluated by infectious disease 5. Essential hypertension 6. History of CVA 7. Moderate pulmonary hypertension and moderate to severe tricuspid regurgitation noted on echo 8. Hypoxemia possibly related to patient's pneumonia and COPD. Patient required Ventimask and is now on 6 L nasal cannula satting at 94%. Patient started on nebulizer treatments 4 times a day and as needed. Repeat chest x-ray 9. Episode of nonsustained ventricular tachycardia likely secondary to hypo- magnesium. Magnesium being replaced. Cardiology following. Continue telemetry monitoring. Check thyroid level 10. Acute kidney injury: Likely related to dehydration and sepsis. Improving. Continue fluids at 50 mL an hour. Patient reports no history of kidney disease. Monitor closely while on vancomycin 11. Severe protein calorie malnutrition: Start ensure GI prophylaxis Protonix and DVT prophylaxis Coumadin I performed an examination of the patient and discussed their management with the physician Banking Paralegal. I have reviewed the Physician Banking Paralegal's notes and agree with the documented findings and plan of care <Cassy Diana - Last Filed: 03/06/18 14:36> Objective - Vital Signs Vital signs: Vital Signs Temp 97.1 F L 03/06/18 12:00 Pulse 86 03/06/18 12:00 Resp 20 03/06/18 12:00 BP 127/60 03/06/18 12:00 Pulse Ox 91 L 03/06/18 12:00 Intake & Output 03/05/18 03/06/18 03/06/18 18:59 06:59 18:59 Intake Total 240 480 500 Output Total 600 300 Balance 240 -120 200 Weight 106.5 kg Intake: Intake, IV Titration 200 Amount Magnesium Sulfate-D5w Pmx 200 1 gm In Dextrose/Water 1 100ml.bag @ 100 mls/hr IVPB Q1H [facility] Rx#: [id number] Oral 240 480 300 Output: Urine 600 300 Other: Voiding Method Toilet Urinal - Labs CBC & Chem 7: 03/06/18 05:54 03/06/18 05:54 Labs: Abnormal Lab Results - Last 24 Hours (Table) 03/04/18 03/06/18 03/06/18 Range/Units 17:09 05:54 05:54 RBC 2.97 L (4.30-5.90) m/uL Hgb 8.5 L (13.0-17.5) gm/dL Hct 28.0 L (39.0-53.0) % MCHC 30.2 L (31.0-37.0) g/dL Lymphocytes # 0.5 L (1.0-4.8) k/uL PT 20.4 H (9.0-12.0) sec INR 2.3 H (<1.2) Sodium (137-145) mmol/L Chloride (98-107) mmol/L Carbon Dioxide (22-30) mmol/L Creatinine (0.66-1.25) mg/dL POC Glucose (mg/dL) (75-99) mg/dL Calcium (8.4-10.2) mg/dL Iron 28 L (65-175) ug/dL Iron Saturation 11.48 L (15.00-50.00) ALT (21-72) U/L Alkaline Phosphatase (38-126) U/L Albumin (3.5-5.0) g/dL 03/06/18 03/06/18 Range/Units 05:54 11:49 RBC (4.30-5.90) m/uL Hgb (13.0-17.5) gm/dL Hct (39.0-53.0) % MCHC (31.0-37.0) g/dL Lymphocytes # (1.0-4.8) k/uL PT (9.0-12.0) sec INR (<1.2) Sodium 135 L (137-145) mmol/L Chloride 111 H (98-107) mmol/L Carbon Dioxide 18 L (22-30) mmol/L Creatinine 1.60 H (0.66-1.25) mg/dL POC Glucose (mg/dL) 157 H (75-99) mg/dL Calcium 7.7 L (8.4-10.2) mg/dL Iron (65-175) ug/dL Iron Saturation (15.00-50.00) ALT 18 L (21-72) U/L Alkaline Phosphatase 164 H (38-126) U/L Albumin 2.3 L (3.5-5.0) g/dL Microbiology - Last 24 Hours (Table) 03/05/18 00:25 Urine Culture - Final Urine,Voided 03/06/18 00:04 Sputum Culture - Preliminary Sputum 03/04/18 17:09 Blood Culture - Preliminary Blood No Growth after 24 hours Assessment and Plan Assessment: Patient seen and examined. Patient had shortness of breath and hypoxia over night. He was on ventimask, has been titrated down to 5L NC. He states he is starting to cough. Denies fevers and chills. Echo shows moderate pulmonary hypertension. Cardiology planning [facility]. ABX for RLL pneumonia and cellulitis per ID. Monitor hemoglobin. Repeat CXR pending. Increase Iron to BID. Check FOB. Duonebs. Add Pulmicort, replace Mag. Pending CXR further recommendations pending. ~Cassy Diana,
[2018-03-06] MEDS: IPRATROPIUM-ALBUTEROL 3 ML NEB INHALATION SCH ×4 (10:44→19:42)
[2018-03-06] MEDS: SODIUM CHLORIDE 0.9% 1,000 ML IV SCH ×2 (10:58→10:59)
--- NOTE | 2018-03-06 11:33 | P.PN ---
Progress Note - Text This is an addendum to the dictated cardiology consultation. The patient presents with symptoms of diaphoresis, numbness in the hands, dyspnea while at rest. He has been evaluated for back discomfort and has underwent PCI on March 04 that showed inferior wall ischemia with ejection fraction of 43%. The patient has no history of cardiac disease, no prior myocardial infarction, congestive heart failure. He is usually active physically but limited by his back. His cardiac enzymes shows no evidence of fluid overload and he is in sinus mechanism. His EKG shows no acute changes and his troponins are negative. Patient presents with symptoms of unclear etiology with an abnormal MPI. I have recommended to proceed with coronary angiography to assess his status and guide his treatment. The risks and the complications were discussed with the patient who is in full understanding and agreement. Thank you for this consult we will follow with you.
[2018-03-06 11:51] LABS: Glucose,Whole Blood 157 mg/dL (75-99)
--- NOTE | 2018-03-06 15:23 | P.PN ---
Subjective Progress Note Date: 03/06/18 This is a 72-year-old gentleman with history of hypertension, chronic persistent atrial fibrillation for which he takes Coumadin. 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 Patient also has history of sebaceous cysts, he states he was on Humira for approximately 3 years and one month ago this at been discontinued. Since then he states that he's had significant drainage from his sebaceous cysts. Patient presents to the hospital on this occasion with symptoms of chills and shaking, he also states that he's noticed some mild increase in shortness of breath over the past one week or so. Chest x-ray on admission did not reveal any acute process. Subsequent EKG showed COPD. Right basilar atelectasis or early infiltrate. EKG shows atrial fibrillation with rapid ventricular response. Temperature on arrival 100.0, blood pressure 124/ 70 with a heart rate in the low 100s, 99% on room air. Temperature this morning 97.5, blood pressure 134/70 with a heart rate in the 50s, 99% on room air. White blood cell count 11.7, hemoglobin 10.0 on admission, 9.3 this morning. Lately count 329 on admission, 227 this morning. INR 2.2. Sodium 136 , potassium 4.7, BUN 17, creatinine 1.7. Plasma lactic acid 4.0. Calcium 8.0. Magnesium 1.7. Alk phos 155. Troponin negative. BNP level 4700. At the time of my examination this morning, patient denies any chills, no jittery feeling. Breathing overall is stable. 03/06/2018 Patient was seen and examined this morning, he was noted on the monitor to have a run of nonsustained ventricular tachycardia, magnesium was 1.6 which we are replacing. He denies any symptoms at that time. As morning patient is 91% on 5 L of oxygen, blood pressure 127/60. White blood cell count 7.2, hemoglobin 8.5, platelet count 209. INR 2.3. Sodium 135, potassium 4.6, BUN 17, creatinine 1.6. Objective - Vital Signs Vital signs: Vital Signs Temp 97.1 F L 03/06/18 12:00 Pulse 86 03/06/18 12:00 Resp 20 03/06/18 12:00 BP 127/60 03/06/18 12:00 Pulse Ox 91 L 03/06/18 12:00 Intake & Output 03/05/18 03/06/18 03/06/18 18:59 06:59 18:59 Intake Total 240 480 500 Output Total 600 300 Balance 240 -120 200 Weight 106.5 kg Intake: Intake, IV Titration 200 Amount Magnesium Sulfate-D5w Pmx 200 1 gm In Dextrose/Water 1 100ml.bag @ 100 mls/hr IVPB Q1H [facility] Rx#: [id number] Oral 240 480 300 Output: Urine 600 300 Other: Voiding Method Toilet Urinal - Exam PHYSICAL EXAMINATION: GENERAL: 72-year-old gentleman in no acute distress examination. HEENT: Head is atraumatic, normocephalic. Pupils equal, round. Sclera anicteric. Conjunctiva are clear. Mucous membranes of the mouth are moist. Neck is supple. There is no elevated jugular venous pressure. No carotid bruit is heard. HEART EXAMINATION: Heart S1 and S2 irregularly irregular CHEST EXAMINATION: Lungs reveal fine crackles to bilateral bases. ABDOMEN: Soft, nontender. Bowel sounds are heard. No organomegaly noted. EXTREMITIES: 2+ peripheral pulses with no evidence of peripheral edema and no calf tenderness noted. NEUROLOGIC patient is awake, alert and oriented ?-3. - Labs CBC & Chem 7: 03/06/18 05:54 03/06/18 05:54 Labs: Abnormal Lab Results - Last 24 Hours (Table) 03/04/18 03/06/18 03/06/18 Range/Units 17:09 05:54 05:54 RBC 2.97 L (4.30-5.90) m/uL Hgb 8.5 L (13.0-17.5) gm/dL Hct 28.0 L (39.0-53.0) % MCHC 30.2 L (31.0-37.0) g/dL Lymphocytes # 0.5 L (1.0-4.8) k/uL PT 20.4 H (9.0-12.0) sec INR 2.3 H (<1.2) Sodium (137-145) mmol/L Chloride (98-107) mmol/L Carbon Dioxide (22-30) mmol/L Creatinine (0.66-1.25) mg/dL POC Glucose (mg/dL) (75-99) mg/dL Calcium (8.4-10.2) mg/dL Iron 28 L (65-175) ug/dL Iron Saturation 11.48 L (15.00-50.00) ALT (21-72) U/L Alkaline Phosphatase (38-126) U/L Albumin (3.5-5.0) g/dL 03/06/18 03/06/18 Range/Units 05:54 11:49 RBC (4.30-5.90) m/uL Hgb (13.0-17.5) gm/dL Hct (39.0-53.0) % MCHC (31.0-37.0) g/dL Lymphocytes # (1.0-4.8) k/uL PT (9.0-12.0) sec INR (<1.2) Sodium 135 L (137-145) mmol/L Chloride 111 H (98-107) mmol/L Carbon Dioxide 18 L (22-30) mmol/L Creatinine 1.60 H (0.66-1.25) mg/dL POC Glucose (mg/dL) 157 H (75-99) mg/dL Calcium 7.7 L (8.4-10.2) mg/dL Iron (65-175) ug/dL Iron Saturation (15.00-50.00) ALT 18 L (21-72) U/L Alkaline Phosphatase 164 H (38-126) U/L Albumin 2.3 L (3.5-5.0) g/dL Microbiology - Last 24 Hours (Table) 03/05/18 00:25 Urine Culture - Final Urine,Voided 03/06/18 00:04 Sputum Culture - Preliminary Sputum 03/04/18 17:09 Blood Culture - Preliminary Blood No Growth after 24 hours Assessment and Plan Plan: Assessment and plan #1 sepsis, exact etiology unknown, could be secondary to sebaceous cyst infection. Lactic acid 4.0. #2 chronic persistent atrial fibrillation, on Coumadin for anticoagulation, therapeutic INR #3 hypertension #4 no prior documented coronary artery disease according to the patient #5 history of sebaceous cysts for which patient had been on Humira for 3 years, recently discontinued one month ago. #6 anemia #7 mildly abnormal renal function Plan We will continue current dose of Coumadin, Echo cardiac gram with Doppler study revealed normal left ventricular systolic function. From our perspective, we' ll continue patient on his current medications, we did replace his magnesium today we'll continue to monitor for 24 hours for any arrhythmias. Further recommendations to follow. DNP note has been reviewed, I agree with a documented findings and plan of care. Patient was seen and examined.
[2018-03-06 16:55] LABS: Glucose,Whole Blood 112 mg/dL (75-99)
[2018-03-06] MEDS ORDERED: LEVOFLOXACIN 750 MG TAB PO SCH (18:00)
[2018-03-06] MEDS ORDERED: LEVOFLOXACIN 750MG-D5W PMX 750 MG in DEXTROSE/WATER 1 150ML.BAG IVPB SCH (18:00)
--- NOTE | 2018-03-06 19:23 | XR ---
EXAMINATION TYPE: XR chest 2V DATE OF EXAM: 03/06/2018 COMPARISON: March 05, 2018 HISTORY: Cough TECHNIQUE: Frontal and lateral views of the chest are obtained. FINDINGS: Heart is enlarged. There is pulmonary interstitial edema. There is very slight blunting of the costophrenic angles. There are chest leads. IMPRESSION: There is increasing pulmonary interstitial edema compared to yesterday and consistent wi th mild heart failure.
[2018-03-06] MEDS: BUDESONIDE 0.5 MG/2 ML NEBU INHALATION SCH (19:27)
[2018-03-06 20:36] LABS: Glucose,Whole Blood 142 mg/dL (75-99)
[2018-03-06] MEDS: ASPIRIN 81 MG PO SCH (21:22)
[2018-03-06] MEDS: METOPROLOL SUCCINATE (ER) 100 MG TAB.ER.24H PO SCH (21:22)
[2018-03-06] MEDS: VANCOMYCIN 1,750 MG in SODIUM CHLORIDE 0.9% 500 ML IVPB SCH (21:22)
[2018-03-06] MEDS: WARFARIN 1 MG TAB PO SCH (21:23)
--- NOTE | 2018-03-06 23:56 | PN ---
PROGRESS NOTE DATE OF SERVICE: 03/06/2018. REASON FOR FOLLOWUP: 1. Fever and question of pneumonia. 2. Infected right buttock wound. INTERVAL HISTORY: The patient is currently afebrile. He has been breathing comfortably. The patient did have a coughing episode and was able to give is a sputum sample. The patient did have more drainage from his right gluteal wound, though, but denies any worsening pain to the area. No nausea, vomiting or abdominal pain and no diarrhea. EXAMINATION: Blood pressure 124/63 with a pulse of 97, temperature of 98.3. He is 94% on 5L nasal cannula. General description is an elderly male lying in bed in no distress. RESPIRATORY SYSTEM: Unlabored breathing with decreased breath sounds in the bases. No wheeze. HEART: S1, S2. Regular rate and rhythm. ABDOMEN: Soft. No tenderness. He did have multiple wounds from his hidradenitis suppurativa with some purulent material which was cultured. LABS: Hemoglobin is 8.5, white count of 7.2 with a BUN of 17, creatinine is 1.60. Sputum and blood culture currently pending. DIAGNOSTIC IMPRESSION AND PLAN: Patient admitted to hospital with rigors and chills and fever with concern for possible community-acquired pneumonia. However, the patient also has hidradenitis suppurativa. The patient did have purulent drainage coming from the right gluteal wound has been cultured. Patient is currently covered with Rocephin and vancomycin, will be adjusting it further on the basis of the clinical response as well as culture. Continue with supportive care. MMODL / IJN: [id number] /
[2018-03-07 00:54] LABS: Basophils % (A) 0 %; Eosinophils # (A) 0.1 k/uL (0-0.7); Eosinophils % (A) 1 %; HCT 26.3 % (39.0-53.0); HGB 8.3 gm/dL (13.0-17.5); Hypochromasia Moderate; Lymphocytes # (A) 0.7 k/uL (1.0-4.8); Lymphocytes % (A) 11 %; MCH 29.3 pg (25.0-35.0); MCHC 31.6 g/dL (31.0-37.0); MCV 92.8 fL (80.0-100.0); Mean Platelet Volume 8.4; Monocytes # (A) 0.3 k/uL (0-1.0); Monocytes % (A) 5 %; Neutrophils # (A) 5.1 k/uL (1.3-7.7); Neutrophils % (A) 81 %; Platelet Count 194 k/uL (150-450); RBC 2.83 m/uL (4.30-5.90); RDW 15.5 % (11.5-15.5); WBC 6.3 k/uL (3.8-10.6)
[2018-03-07 01:04] LABS: Calcium 7.3 mg/dL (8.4-10.2); Magnesium 1.8 mg/dL (1.6-2.3); Potassium 4.2 mmol/L (3.5-5.1)
[2018-03-07 06:14] LABS: Glucose,Whole Blood 103 mg/dL (75-99)
[2018-03-07 06:29] LABS: INR 2.2 (<1.2); Prothrombin Time 20.1 sec (9.0-12.0)
[2018-03-07 06:35] LABS: Albumin 2.2 g/dL (3.5-5.0); Calcium 7.6 mg/dL (8.4-10.2); Magnesium 1.7 mg/dL (1.6-2.3); Potassium 4.5 mmol/L (3.5-5.1); Total Bilirubin 0.3 mg/dL (0.2-1.3); Total Protein 7.4 g/dL (6.3-8.2)
[2018-03-07] MEDS: PANTOPRAZOLE 40 MG TABLET PO SCH (06:37)
[2018-03-07] MEDS: SODIUM CHLORIDE 0.9% 1,000 ML IV SCH (06:37)
[2018-03-07 07:00] LABS: Basophils % (A) 0 %; Eosinophils # (A) 0.1 k/uL (0-0.7); Eosinophils % (A) 1 %; HCT 27.5 % (39.0-53.0); HGB 8.8 gm/dL (13.0-17.5); Hypochromasia Moderate; Lymphocytes # (A) 0.6 k/uL (1.0-4.8); Lymphocytes % (A) 8 %; MCH 29.5 pg (25.0-35.0); MCV 92.2 fL (80.0-100.0); Mean Platelet Volume 7.6; Monocytes # (A) 0.3 k/uL (0-1.0); Monocytes % (A) 5 %; Neutrophils # (A) 5.8 k/uL (1.3-7.7); Neutrophils % (A) 85 %; Platelet Count 200 k/uL (150-450); RBC 2.98 m/uL (4.30-5.90); RDW 15.4 % (11.5-15.5); WBC 6.8 k/uL (3.8-10.6)
[2018-03-07] MEDS: BUDESONIDE 0.5 MG/2 ML NEBU INHALATION SCH ×2 (09:00→20:16)
[2018-03-07] MEDS: FERROUS SULFATE 325 MG TAB PO SCH ×2 (09:01→20:54)
[2018-03-07] MEDS: MAGNESIUM SULFATE-D5W PMX 1 GM in DEXTROSE/WATER 1 100ML.BAG IVPB SCH ×2 (09:01→10:15)
[2018-03-07] MEDS: FINASTERIDE 5 MG TAB PO SCH (09:01)
[2018-03-07] MEDS: IPRATROPIUM-ALBUTEROL 3 ML NEB INHALATION SCH ×4 (09:01→20:16)
[2018-03-07 11:53] LABS: Glucose,Whole Blood 131 mg/dL (75-99)
--- NOTE | 2018-03-07 13:09 | PN ---
PROGRESS NOTE DATE OF SERVICE: 03/07/2018 He has been hemodynamically stable. He is less short of breath and is starting to bring up some sputum. His blood pressure is 122/75, respiratory rate of 18, pulse rate 86, temperature 97.4, O2 saturation on 5 L by nasal cannula is 92%. HEENT is unremarkable. Chest reveals occasional rhonchi. Cardiovascular system reveals S1, S2. Abdomen is soft. There is no pedal edema. Labs and medications were reviewed. IMPRESSION: At this time is: 1. Sepsis with systemic inflammatory response. 2. Atrial fibrillation. 3. Anemia. 4. Pulmonary hypertension with tricuspid regurg. 5. Hypoxemia secondary to pneumonia and chronic obstructive pulmonary disease. 6. Pneumonia. 7. Nonsustained ventricular tachycardia. Continue current medications. Increase her activity level. Advance his diet. His prognosis at this time is fair. He was counseled regarding his conditions. MMODL / IJN: [id number] /
[2018-03-07] MEDS: VANCOMYCIN 1,750 MG in SODIUM CHLORIDE 0.9% 500 ML IVPB SCH (13:13)
[2018-03-07 17:28] LABS: Glucose,Whole Blood 184 mg/dL (75-99)
[2018-03-07] MEDS: LEVOFLOXACIN 750 MG TAB PO SCH (17:53)
[2018-03-07] MEDS: WARFARIN 1 MG TAB PO SCH (20:53)
[2018-03-07] MEDS: METOPROLOL SUCCINATE (ER) 100 MG TAB.ER.24H PO SCH (20:54)
[2018-03-07] MEDS: ASPIRIN 81 MG PO SCH (20:54)
[2018-03-07 21:26] LABS: Glucose,Whole Blood 116 mg/dL (75-99)
--- NOTE | 2018-03-07 22:42 | PN ---
PROGRESS NOTE This patient is being admitted with septicemia and fever. He is doing fairly well. Hemodynamically, currently the patient remains stable. The patient has chronic atrial fibrillation. He denies any heart fluttering or respiratory distress. Patient is afebrile. Blood pressure is 139/83 mmHg. First and second heart sounds are normal. Lungs are clinically clear to auscultation and percussion. Patient's hemoglobin is 8.3. Electrolytes are normal. We will continue the patient on the current medications. MMODL / IJN: [id number] /
[2018-03-08] MEDS: cefTRIAXone IN SWFI 1,000 MG/10 ML SYRINGE IVP SCH (01:29)
[2018-03-08] MEDS: VANCOMYCIN 1,750 MG in SODIUM CHLORIDE 0.9% 500 ML IVPB SCH ×2 (04:31→21:31)
[2018-03-08] MEDS: SODIUM CHLORIDE 0.9% 1,000 ML IV SCH (05:34)
[2018-03-08] MEDS: PANTOPRAZOLE 40 MG TABLET PO SCH (06:20)
[2018-03-08 06:30] LABS: Glucose,Whole Blood 107 mg/dL (75-99)
--- NOTE | 2018-03-08 06:34 | PN ---
PROGRESS NOTE DATE OF SERVICE: 03/07/2018. REASON FOR FOLLOWUP VISIT: 1. Pneumonia. 2. Right gluteal infected wound. INTERVAL HISTORY: The patient has been afebrile. He has been breathing comfortably. Denies significant chest pain. Cough decreased in intensity. Less productive. No abdominal pain. No nausea, vomiting. No diarrhea. Denies any pain to the right gluteal wound area. EXAMINATION: Blood pressure 139/83 with a pulse of 102, temperature 97.1. He is 97% on 2 L nasal cannula. General description is an elderly male lying in bed in no distress. Respiratory system: Unlabored breathing. Clear to auscultation anteriorly. Heart S1, S2. Regular rate and rhythm. Abdomen soft. No tenderness. LABS: The gluteal culture with presumptive MRSA sputum currently pending. DIAGNOSTIC IMPRESSION AND PLAN: Patient admitted to the hospital with a fever with concern for possible pneumonia as well as the infected right gluteal wound from his hidradenitis suppurativa with culture now with presumptive MRSA. The patient is already on vancomycin that will be continued for now. For pneumonia, he will continue with Levaquin and Rocephin will be discontinued. Monitoring his clinical course closely. Continue supportive care. MMODL / IJN: [id number] /
[2018-03-08 06:49] LABS: INR 2.1 (<1.2); Prothrombin Time 18.6 sec (9.0-12.0)
[2018-03-08 06:56] LABS: Albumin 2.2 g/dL (3.5-5.0); Calcium 7.7 mg/dL (8.4-10.2); Potassium 4.3 mmol/L (3.5-5.1); Total Bilirubin 0.3 mg/dL (0.2-1.3); Total Protein 7.4 g/dL (6.3-8.2)
[2018-03-08 07:01] LABS: Basophils % (A) 0 %; Eosinophils # (A) 0.1 k/uL (0-0.7); Eosinophils % (A) 2 %; HGB 8.5 gm/dL (13.0-17.5); Hypochromasia Moderate; Lymphocytes # (A) 0.7 k/uL (1.0-4.8); Lymphocytes % (A) 11 %; MCH 29.3 pg (25.0-35.0); MCHC 31.7 g/dL (31.0-37.0); MCV 92.3 fL (80.0-100.0); Mean Platelet Volume 8.1; Monocytes # (A) 0.4 k/uL (0-1.0); Monocytes % (A) 6 %; Neutrophils # (A) 5.5 k/uL (1.3-7.7); Neutrophils % (A) 80 %; Platelet Count 200 k/uL (150-450); RBC 2.92 m/uL (4.30-5.90); RDW 15.7 % (11.5-15.5); WBC 6.9 k/uL (3.8-10.6)
[2018-03-08] MEDS: FINASTERIDE 5 MG TAB PO SCH (07:47)
[2018-03-08] MEDS: FERROUS SULFATE 325 MG TAB PO SCH ×2 (07:47→21:32)
[2018-03-08] MEDS: IPRATROPIUM-ALBUTEROL 3 ML NEB INHALATION SCH ×4 (08:06→20:34)
[2018-03-08] MEDS: BUDESONIDE 0.5 MG/2 ML NEBU INHALATION SCH ×2 (08:06→20:34)
[2018-03-08] MEDS: LEVOFLOXACIN 750 MG TAB PO SCH (16:44)
--- NOTE | 2018-03-08 17:06 | CT ---
EXAMINATION TYPE: CT pelvis wo con DATE OF EXAM: 03/08/2018 COMPARISON: None HISTORY: 72-year-old male bilateral gluteal abscess TECHNIQUE: Contiguous axial scanning of the pelvis without IV contrast. Coronal and sagittal reconstr uctions performed. CT DLP: 684.3 mGycm Automated exposure control for dose reduction was used. FINDINGS: 1.4 cm exophytic hypodense lesion lateral right kidney in adequately characterized on this noncontras t CT, likely a cyst. Perinephric edema could represent chronic kidney disease or senescent change. Moderate arthroscopic calcifications within the abdominal aorta and iliac arteries. There is fusiform dilatation of the infrarenal segment to a caliber of 3.4 cm. No dilated small bowel, free fluid, or free air. Mild scattered stool. No pericolonic inflammatory ch morelia. Bladder urine distended. Central prostatic calcifications. Rectum appears normal. Possible enlargemen t of the left testicle can be correlated clinically as to the need for ultrasound evaluation. Enlarged bilateral inguinal chain lymph nodes measure up to 2.6 cm on the right and 2.5 cm on the lef t. There is diffuse nodular thickening of the skin and superficial subcutaneous tissues along the bilate ral gluteal regions. Very small underlying abscesses would be difficult to exclude, for example, the left axial image 81 possible small abscess measuring up to 1.9 cm. Advanced degenerative changes throughout the lumbar spine. Degenerative changes of the hips and right greater than left SI joint. IMPRESSION: 1. DIFFUSE NODULAR THICKENING OF THE SKIN AND SUPERFICIAL SUBCUTANEOUS TISSUES OF THE BILATERAL GLUTE AL REGIONS. Small superficial abscesses are difficult to exclude such as measuring 1.9 cm on the left , axial image 81. 2. Given the extensive cutaneous abnormality, correlate for possible etiologies such as condylomas or chronic infections including etiologies such as hidradenitis suppurativa. 3. Bilateral inguinal lymphadenopathy measuring up to 2.6 cm may be reactive. Tissue sampling can be considered if there is no establish diagnosis. 4. Query enlarged left testicle or underlying hydrocele. Scrotal ultrasound if clinically indicated. 5. AAA measuring 3.4 cm.
[2018-03-08 17:30] LABS: Glucose,Whole Blood 133 mg/dL (75-99)
--- NOTE | 2018-03-08 18:00 | P.PN ---
Subjective Progress Note Date: 03/08/18 Principal diagnosis: Sepsis due to right gluteal infection suspected to be related to MRSA, atrial fibrillation, pulmonary hypertension, 03/08/2018, patient seen eval examined during the rounds clinically doing slightly better breathing more comfortably patient getting broad-spectrum antibiotics in obvious distress present hemodynamic status stable blood cultures have been negative final ID and wound culture is positive for MRSA Objective - Vital Signs Vital signs: Vital Signs Temp 97.5 F L 03/08/18 12:00 Pulse 88 03/08/18 16:37 Resp 16 03/08/18 16:37 BP 133/87 03/08/18 12:00 Pulse Ox 94 L 03/08/18 16:25 Intake & Output 03/07/18 03/08/18 03/08/18 18:59 06:59 18:59 Intake Total 1850 540 200 Output Total 900 Balance 950 540 200 Intake: IV 350 0.9 350 Intake, IV Titration 700 300 Amount Magnesium Sulfate-D5w Pmx 200 1 gm In Dextrose/Water 1 100ml.bag @ 100 mls/hr IVPB Q1H [facility] Rx#: [id number] Sodium Chloride 0.9% 1, 300 000 ml @ 50 mls/hr IV . Q20H [facility] Rx#:[id number] Vancomycin 1,750 mg In 500 Sodium Chloride 0.9% 500 ml @ 167 mls/hr IVPB Q16H [facility] Rx#:[id number] Oral 800 240 200 Output: Urine 900 Other: Voiding Method Urinal Toilet Toilet Urinal Urinal # Voids 2 1 # Bowel Movements 1 1 - Exam GENERAL: 72-year-old gentleman in no acute distress examination. HEENT: Head is atraumatic, normocephalic. Pupils equal, round. Sclera anicteric. Conjunctiva are clear. Mucous membranes of the mouth are moist. Neck is supple. There is no elevated jugular venous pressure. No carotid bruit is heard. HEART EXAMINATION: Heart S1 and S2 irregularly irregular CHEST EXAMINATION: Lungs reveal fine crackles to bilateral bases. ABDOMEN: Soft, nontender. Bowel sounds are heard. No organomegaly noted. EXTREMITIES: 2+ peripheral pulses with no evidence of peripheral edema and no calf tenderness noted. NEUROLOGIC patient is awake, alert and oriented ?-3. - Labs CBC & Chem 7: 03/08/18 06:02 03/08/18 06:02 Labs: Abnormal Lab Results - Last 24 Hours (Table) 03/07/18 03/08/18 03/08/18 Range/Units 21:15 06:02 06:02 RBC 2.92 L (4.30-5.90) m/uL Hgb 8.5 L (13.0-17.5) gm/dL Hct 27.0 L (39.0-53.0) % RDW 15.7 H (11.5-15.5) % Lymphocytes # 0.7 L (1.0-4.8) k/uL PT 18.6 H (9.0-12.0) sec INR 2.1 H (<1.2) Chloride (98-107) mmol/L Carbon Dioxide (22-30) mmol/L Creatinine (0.66-1.25) mg/dL POC Glucose (mg/dL) 116 H (75-99) mg/dL Calcium (8.4-10.2) mg/dL ALT (21-72) U/L Alkaline Phosphatase (38-126) U/L Albumin (3.5-5.0) g/dL 03/08/18 03/08/18 03/08/18 Range/Units 06:02 06:28 17:23 RBC (4.30-5.90) m/uL Hgb (13.0-17.5) gm/dL Hct (39.0-53.0) % RDW (11.5-15.5) % Lymphocytes # (1.0-4.8) k/uL PT (9.0-12.0) sec INR (<1.2) Chloride 109 H (98-107) mmol/L Carbon Dioxide 21 L (22-30) mmol/L Creatinine 1.37 H (0.66-1.25) mg/dL POC Glucose (mg/dL) 107 H 133 H (75-99) mg/dL Calcium 7.7 L (8.4-10.2) mg/dL ALT 15 L (21-72) U/L Alkaline Phosphatase 229 H (38-126) U/L Albumin 2.2 L (3.5-5.0) g/dL Microbiology - Last 24 Hours (Table) 03/07/18 13:12 Blood Culture - Preliminary Blood No Growth after 24 hours 03/07/18 13:20 Blood Culture - Preliminary Blood No Growth after 24 hours 03/06/18 00:04 Gram Stain - Final Sputum Sputum Culture - Final 03/04/18 17:09 Blood Culture Gram Stain - Preliminary Blood 03/06/18 14:23 Gram Stain - Preliminary Buttock Wound Culture - Preliminary Presumptive MRSA Assessment and Plan Assessment: Right gluteal wound and abscess related to MRSA Sirs-like process related to above Chronic intermittent atrial fibrillation Potential hypertensive cardiovascular disease Plan: Continue Coumadin Continue broad-spectrum antibiotics Local wound care Increase activity as tolerated Time with Patient: Greater than 30
--- NOTE | 2018-03-08 18:49 | PN ---
PROGRESS NOTE DATE OF SERVICE: 03/08/2018 He was seen again on March2017. He has been hemodynamically stable and denies any shortness of breath today. PHYSICAL EXAMINATION: His blood pressure is 133/87, respiratory rate is 16, pulse of 91, temperature 97.5, O2 saturation on room is 92%. HEENT: Unremarkable. Chest reveals decreased breath sounds. No clear wheeze. Cardiovascular system is S1, S2. ABDOMEN: Soft. There is no pedal edema. IMPRESSION: At this time: 1. Sepsis with systemic inflammatory response. 2. Anemia. 3. Pulmonary hypertension with tricuspid regurg. 4. Chronic obstructive pulmonary disease and pneumonia. Continue current medications. Increase his activity level. Depending on how he does, we should make further changes to his care. MMODL / FLORIN: [id number] /
[2018-03-08] MEDS ORDERED: VANCOMYCIN TROUGH DUE 1 EACH MISC MISCELLANE ONE (20:00)
[2018-03-08 20:58] LABS: Glucose,Whole Blood 111 mg/dL (75-99)
[2018-03-08] MEDS: ASPIRIN 81 MG PO SCH (21:32)
[2018-03-08] MEDS: WARFARIN 1 MG TAB PO SCH (21:32)
[2018-03-08] MEDS: METOPROLOL SUCCINATE (ER) 100 MG TAB.ER.24H PO SCH (21:32)
--- NOTE | 2018-03-08 23:10 | PN ---
PROGRESS NOTE DATE OF SERVICE: 03/08/2018. REASON FOR FOLLOWUP: 1. Right gluteal abscess with MRSA. 2. Pneumonia. INTERVAL HISTORY: The patient is afebrile. He has been breathing comfortably. Denies having any chest pain, shortness of breath or cough. No abdominal pain or any diarrhea. EXAMINATION: His blood pressure is 133/77 with a pulse of 90, temperature 97. He is 95% on room air. GENERAL DESCRIPTION: A middle age male lying in bed in no distress. RESPIRATORY SYSTEM: Unlabored breathing. Clear to auscultation anteriorly. HEART: S1, S2. Regular rate and rhythm. ABDOMEN: Soft, no tenderness. Right gluteal wound is currently packed. No drainage. LABS: Wound culture finalized with MRSA. DIAGNOSTIC IMPRESSION/PLAN: Patient admitted to the hospital with fever. He is treated for possible pneumonia. The patient also has hidradenitis suppurativa with purulent drainage. Culture now showing MRSA. The patient is currently covered with vancomycin. We will obtain a CT of the gluteal region to make sure there is no evidence of any deep abscess that may need to be surgically drained. We will keep the patient on vancomycin at this point. Positive blood culture with gram-positive cocci, the final ID still pending with pathogen. For pneumonia, he is currently covered with Levaquin. MMODL / IJN: [id number] /
[2018-03-09] MEDS: SODIUM CHLORIDE 0.9% 1,000 ML IV SCH ×2 (00:20→21:21)
[2018-03-09 06:00] LABS: Glucose,Whole Blood 103 mg/dL (75-99)
[2018-03-09 06:23] LABS: INR 1.9 (<1.2)
[2018-03-09 06:26] LABS: Albumin 2.3 g/dL (3.5-5.0); Potassium 4.5 mmol/L (3.5-5.1); Total Bilirubin 0.5 mg/dL (0.2-1.3); Total Protein 7.6 g/dL (6.3-8.2)
[2018-03-09] MEDS: PANTOPRAZOLE 40 MG TABLET PO SCH (06:31)
[2018-03-09 06:37] LABS: Basophils % (A) 0 %; Eosinophils # (A) 0.1 k/uL (0-0.7); Eosinophils % (A) 2 %; HCT 27.3 % (39.0-53.0); HGB 8.8 gm/dL (13.0-17.5); Hypochromasia Moderate; Lymphocytes # (A) 0.8 k/uL (1.0-4.8); Lymphocytes % (A) 10 %; MCH 29.2 pg (25.0-35.0); MCHC 32.2 g/dL (31.0-37.0); MCV 90.7 fL (80.0-100.0); Mean Platelet Volume 8.2; Monocytes # (A) 0.4 k/uL (0-1.0); Monocytes % (A) 5 %; Neutrophils # (A) 5.7 k/uL (1.3-7.7); Neutrophils % (A) 80 %; Platelet Count 208 k/uL (150-450); RBC 3.01 m/uL (4.30-5.90); RDW 15.6 % (11.5-15.5); WBC 7.2 k/uL (3.8-10.6)
[2018-03-09] MEDS: BUDESONIDE 0.5 MG/2 ML NEBU INHALATION SCH ×2 (08:31→19:21)
[2018-03-09] MEDS: IPRATROPIUM-ALBUTEROL 3 ML NEB INHALATION SCH ×4 (08:31→19:21)
[2018-03-09] MEDS: FERROUS SULFATE 325 MG TAB PO SCH ×2 (09:01→21:22)
[2018-03-09] MEDS: FINASTERIDE 5 MG TAB PO SCH (09:01)
[2018-03-09 10:22] VITALS: BMI 29.2
--- NOTE | 2018-03-09 10:43 | P.PN ---
Subjective Progress Note Date: 03/09/18 Interval history 03/09/2018- patient is being seen examined and evaluated today on rounds. He has remained hemodynamically stable. He occasionally has shortness of breath with exertion and activity. Has a dry cough. Denies any sputum production. Infectious disease on consult. Patient did have positive blood cultures. States his breathing treatments seem to help him. He has been afebrile no further complaints Objective - Vital Signs Vital signs: Vital Signs Temp 96.8 F L 03/09/18 08:00 Pulse 68 03/09/18 08:47 Resp 20 03/09/18 08:00 BP 134/80 03/09/18 08:00 Pulse Ox 98 03/09/18 08:00 Intake & Output 03/08/18 03/09/18 03/09/18 18:59 06:59 18:59 Intake Total 2036 370 180 Output Total 700 500 150 Balance 1336 -130 30 Weight 103.1 kg 103.1 kg Intake: Intake, IV Titration 1600 250 Amount Sodium Chloride 0.9% 1, 1600 250 000 ml @ 50 mls/hr IV . Q20H [facility] Rx#:[id number] Oral 436 120 180 Output: Urine 700 500 150 Other: Voiding Method Toilet Toilet Urinal Urinal # Voids 2 1 # Bowel Movements 1 - Exam GENERAL EXAM: Alert, comfortable in no apparent distress. HEAD: Normocephalic. EYES: Normal reaction of pupils, equal size. NOSE: Clear with pink turbinates. THROAT: No erythema or exudates. NECK: No masses, no JVD. CHEST: No chest wall deformity. LUNGS: Equal air entry with no crackles, wheeze, rhonchi or dullness. Bases diminished CVS: S1 and S2 normal with no audible mumurs, regular rhythm. ABDOMEN: No hepatosplenomegaly, normal bowel sounds, no guarding or rigidity. EXTREMITIES: No edema noted, pedal pulses palpable. CENTRAL NERVOUS SYSTEM: No focal deficits, tone is normal in all 4 extremities. - Labs CBC & Chem 7: 03/09/18 05:40 03/09/18 05:40 Labs: Abnormal Lab Results - Last 24 Hours (Table) 03/08/18 03/08/18 03/09/18 Range/Units 17:23 20:56 05:40 RBC 3.01 L (4.30-5.90) m/uL Hgb 8.8 L (13.0-17.5) gm/dL Hct 27.3 L (39.0-53.0) % RDW 15.6 H (11.5-15.5) % Lymphocytes # 0.8 L (1.0-4.8) k/uL PT (9.0-12.0) sec INR (<1.2) Sodium (137-145) mmol/L Chloride (98-107) mmol/L Creatinine (0.66-1.25) mg/dL POC Glucose (mg/dL) 133 H 111 H (75-99) mg/dL Calcium (8.4-10.2) mg/dL ALT (21-72) U/L Alkaline Phosphatase (38-126) U/L Albumin (3.5-5.0) g/dL 03/09/18 03/09/18 03/09/18 Range/Units 05:40 05:40 05:59 RBC (4.30-5.90) m/uL Hgb (13.0-17.5) gm/dL Hct (39.0-53.0) % RDW (11.5-15.5) % Lymphocytes # (1.0-4.8) k/uL PT 17.0 H (9.0-12.0) sec INR 1.9 H (<1.2) Sodium 136 L (137-145) mmol/L Chloride 109 H (98-107) mmol/L Creatinine 1.30 H (0.66-1.25) mg/dL POC Glucose (mg/dL) 103 H (75-99) mg/dL Calcium 8.0 L (8.4-10.2) mg/dL ALT 18 L (21-72) U/L Alkaline Phosphatase 219 H (38-126) U/L Albumin 2.3 L (3.5-5.0) g/dL Microbiology - Last 24 Hours (Table) 03/04/18 17:09 Blood Culture Gram Stain - Preliminary Blood 03/06/18 14:23 Gram Stain - Final Buttock Wound Culture - Final Methicillin resist S. aureus 03/07/18 13:12 Blood Culture - Preliminary Blood No Growth after 24 hours 03/07/18 13:20 Blood Culture - Preliminary Blood No Growth after 24 hours 03/06/18 00:04 Gram Stain - Final Sputum Sputum Culture - Final Assessment and Plan Assessment: Assessment Sepsis with SIRS Anemia, iron deficiency Pulmonary hypertension with tricuspid regurg COPD Pneumonia Sebaceous cyst of the thighs Chronic persistent A. fib Plan Medications have been reviewed and will be continued as ordered. Antibiotics per ID Continue with pulmonary hygiene, coughing and deep breathing exercises, and supportive care. Supplemental oxygen to maintain oxygen saturations of 92% or better. Continue nebulizer treatments. GI and DVT prophylaxis. Cardiology and infectious disease also on consult, appreciate recommendations Increase activity as tolerated PT and OT We will continue to monitor labs/results and adjust treatment as necessary. Further recommendations pending. I performed an examination of the patient and discussed their management with the nurse practitioner. I have reviewed the nurse practitioner's note and agree with the documented findings and plan of care.
[2018-03-09 11:35] LABS: Glucose,Whole Blood 145 mg/dL (75-99)
[2018-03-09] MEDS: VANCOMYCIN 1,750 MG in SODIUM CHLORIDE 0.9% 500 ML IVPB SCH (12:42)
[2018-03-09 16:59] LABS: Glucose,Whole Blood 172 mg/dL (75-99)
[2018-03-09] MEDS: LEVOFLOXACIN 750 MG TAB PO SCH (17:29)
--- NOTE | 2018-03-09 17:43 | P.PN ---
Subjective Progress Note Date: 03/09/18 Principal diagnosis: Sepsis due to right gluteal infection suspected to be related to MRSA, atrial fibrillation, pulmonary hypertension, 03/08/2018, patient seen eval examined during the rounds clinically doing slightly better breathing more comfortably patient getting broad-spectrum antibiotics in obvious distress present hemodynamic status stable blood cultures have been negative final ID and wound culture is positive for MRSA 03/09/2018, patient seen eval reexamined while covering for Dr. brewer are clinically overall remains stable he is asking for discharge however patient remains on Y IV vancomycin will discuss with infectious disease services about discharge planning and antibiotics, respiratory status remains stable intermittent dry cough is present overall appetite is good patient is sleeping fairly well labs reviewed medications reviewed patient is also on Coumadin being dosed INR 1.9 in therapeutic range, BUN/creatinine is 14 and 1.3, continue improve progressively Objective - Vital Signs Vital signs: Vital Signs Temp 97.4 F L 03/09/18 16:00 Pulse 88 03/09/18 16:00 Resp 20 03/09/18 16:00 BP 120/73 03/09/18 16:00 Pulse Ox 96 03/09/18 16:00 Intake & Output 03/08/18 03/09/18 03/09/18 18:59 06:59 18:59 Intake Total 2036 370 1380 Output Total 700 500 750 Balance 1336 -130 630 Weight 103.1 kg 103.1 kg Intake: Intake, IV Titration 1600 250 800 Amount Sodium Chloride 0.9% 1, 1600 250 300 000 ml @ 50 mls/hr IV . Q20H AZUCENA Rx#:[id number] Vancomycin 1,750 mg In 500 Sodium Chloride 0.9% 500 ml @ 167 mls/hr IVPB Q16H [facility] Rx#:[id number] Oral 436 120 580 Output: Urine 700 500 750 Other: Voiding Method Toilet Toilet Urinal Urinal # Voids 2 1 # Bowel Movements 1 - Exam GENERAL: 72-year-old gentleman in no acute distress examination. HEENT: Head is atraumatic, normocephalic. Pupils equal, round. Sclera anicteric. Conjunctiva are clear. Mucous membranes of the mouth are moist. Neck is supple. There is no elevated jugular venous pressure. No carotid bruit is heard. HEART EXAMINATION: Heart S1 and S2 irregularly irregular CHEST EXAMINATION: Lungs reveal fine crackles to bilateral bases. ABDOMEN: Soft, nontender. Bowel sounds are heard. No organomegaly noted. EXTREMITIES: 2+ peripheral pulses with no evidence of peripheral edema and no calf tenderness noted. NEUROLOGIC patient is awake, alert and oriented ?-3. - Labs CBC & Chem 7: 03/09/18 05:40 03/09/18 05:40 Labs: Abnormal Lab Results - Last 24 Hours (Table) 03/08/18 03/09/18 03/09/18 Range/Units 20:56 05:40 05:40 RBC 3.01 L (4.30-5.90) m/uL Hgb 8.8 L (13.0-17.5) gm/dL Hct 27.3 L (39.0-53.0) % RDW 15.6 H (11.5-15.5) % Lymphocytes # 0.8 L (1.0-4.8) k/uL PT 17.0 H (9.0-12.0) sec INR 1.9 H (<1.2) Sodium (137-145) mmol/L Chloride (98-107) mmol/L Creatinine (0.66-1.25) mg/dL POC Glucose (mg/dL) 111 H (75-99) mg/dL Calcium (8.4-10.2) mg/dL ALT (21-72) U/L Alkaline Phosphatase (38-126) U/L Albumin (3.5-5.0) g/dL 03/09/18 03/09/18 03/09/18 Range/Units 05:40 05:59 11:33 RBC (4.30-5.90) m/uL Hgb (13.0-17.5) gm/dL Hct (39.0-53.0) % RDW (11.5-15.5) % Lymphocytes # (1.0-4.8) k/uL PT (9.0-12.0) sec INR (<1.2) Sodium 136 L (137-145) mmol/L Chloride 109 H (98-107) mmol/L Creatinine 1.30 H (0.66-1.25) mg/dL POC Glucose (mg/dL) 103 H 145 H (75-99) mg/dL Calcium 8.0 L (8.4-10.2) mg/dL ALT 18 L (21-72) U/L Alkaline Phosphatase 219 H (38-126) U/L Albumin 2.3 L (3.5-5.0) g/dL 03/09/18 Range/Units 16:46 RBC (4.30-5.90) m/uL Hgb (13.0-17.5) gm/dL Hct (39.0-53.0) % RDW (11.5-15.5) % Lymphocytes # (1.0-4.8) k/uL PT (9.0-12.0) sec INR (<1.2) Sodium (137-145) mmol/L Chloride (98-107) mmol/L Creatinine (0.66-1.25) mg/dL POC Glucose (mg/dL) 172 H (75-99) mg/dL Calcium (8.4-10.2) mg/dL ALT (21-72) U/L Alkaline Phosphatase (38-126) U/L Albumin (3.5-5.0) g/dL Microbiology - Last 24 Hours (Table) 03/07/18 13:12 Blood Culture - Preliminary Blood No Growth after 48 hours 03/07/18 13:20 Blood Culture - Preliminary Blood No Growth after 48 hours 03/04/18 17:09 Blood Culture Gram Stain - Preliminary Blood 03/06/18 14:23 Gram Stain - Final Buttock Wound Culture - Final Methicillin resist S. aureus Assessment and Plan Assessment: Right gluteal wound and abscess related to MRSA Sirs-like process related to above Chronic intermittent atrial fibrillation Potential hypertensive cardiovascular disease Chronic renal failure stage III Plan: Continue Coumadin, keep INR between 1.8-2.5 Continue broad-spectrum antibiotics Local wound care Increase activity as tolerated Will discuss with infectious disease services about simplifying antibiotics to oral with possible discharge Time with Patient: Greater than 30
[2018-03-09] MEDS: METOPROLOL SUCCINATE (ER) 100 MG TAB.ER.24H PO SCH (21:22)
[2018-03-09] MEDS: WARFARIN 1 MG TAB PO SCH (21:22)
[2018-03-09] MEDS: ASPIRIN 81 MG PO SCH (21:23)
--- NOTE | 2018-03-09 23:08 | PN ---
PROGRESS NOTE DATE OF SERVICE: 03/09/2018 REASON FOR FOLLOWUP: 1. Positive blood culture with a gram-positive. 2. MRSA gluteal infected hidradenitis cyst. 3. Pneumonia. INTERVAL HISTORY: The patient is afebrile. He has been breathing more comfortably. Denies significant chest pain. Occasional cough. No abdominal pain or any new or worsening pain to the bilateral gluteal wound area. PHYSICAL EXAMINATION: Blood pressure 138/80 with a pulse of 91, temperature 97. He is 97% on 2 L nasal cannula. General description is an elderly male lying in bed in no distress. RESPIRATORY SYSTEM: Unlabored breathing. Clear to auscultation anteriorly. HEART: S1, S2. Regular rate and rhythm. ABDOMEN: Soft. No tenderness. EXTREMITIES: No edema of the feet. LABS: Hemoglobin is 8.8, white count 7.2, BUN of 14, creatinine 1.30. The wound culture is now showing anaerobic gram-negative bacilli. DIAGNOSTIC IMPRESSION AND PLAN: 1. Patient admitted to hospital with a fever, likely multifactorial component of pneumonia, likely community-acquired, for which the patient is currently on Levaquin, also with infected hidradenitis to the bilateral gluteal area. Culture with MRSA and anaerobic gram-negative. He is on vancomycin. Will add oral Flagyl. 2. Patient with a positive blood culture with gram-positive. We are waiting for the final identification of this pathogen to determine significance, as this is the only factor that is holding the discharge. Continue with supportive care. MMODL / IJN: [id number] /
[2018-03-10] MEDS: VANCOMYCIN 1,750 MG in SODIUM CHLORIDE 0.9% 500 ML IVPB SCH (04:26)
[2018-03-10] MEDS: PANTOPRAZOLE 40 MG TABLET PO SCH (06:28)
[2018-03-10] MEDS: IPRATROPIUM-ALBUTEROL 3 ML NEB INHALATION SCH ×2 (08:17→11:33)
[2018-03-10] MEDS: BUDESONIDE 0.5 MG/2 ML NEBU INHALATION SCH (08:17)
[2018-03-10 08:56] VITALS: RESP 16; TEMP 97.3
[2018-03-10] MEDS: FERROUS SULFATE 325 MG TAB PO SCH (08:56)
[2018-03-10] MEDS: FINASTERIDE 5 MG TAB PO SCH (08:56)
[2018-03-10] MEDS ORDERED: metroNIDAZOLE 500 MG TAB PO SCH (10:00)
--- NOTE | 2018-03-10 10:28 | P.PN ---
Subjective Progress Note Date: 03/10/18 Interval history 03/09/2018- patient is being seen examined and evaluated today on rounds. He has remained hemodynamically stable. He occasionally has shortness of breath with exertion and activity. Has a dry cough. Denies any sputum production. Infectious disease on consult. Patient did have positive blood cultures. States his breathing treatments seem to help him. He has been afebrile no further complaints 03/10/2018vision is being seen examined and evaluated today on rounds. He is resting up in bed on 2 L of supplemental oxygen via nasal cannula. He uses his oxygen more for comfort. He goes back and forth between using 2 L and being on room air. Depending on how he feels. Infectious disease is currently finalizing antibiotic recommendations. He continues in contact isolation, for MRSA. His breathing has been relatively stable. Occasionally has shortness of breath with exertion and activity. Breathing is close to baseline. Objective - Vital Signs Vital signs: Vital Signs Temp 97.3 F L 03/10/18 08:00 Pulse 72 03/10/18 08:33 Resp 16 03/10/18 08:00 BP 125/75 03/10/18 08:00 Pulse Ox 97 03/10/18 08:00 Intake & Output 03/09/18 03/10/18 03/10/18 18:59 06:59 18:59 Intake Total 1780 240 340 Output Total 750 1450 1000 Balance 1030 -1210 -660 Weight 103.1 kg 105.5 kg Intake: Intake, IV Titration 800 Amount Sodium Chloride 0.9% 1, 300 000 ml @ 50 mls/hr IV . Q20H [facility] Rx#:[id number] Vancomycin 1,750 mg In 500 Sodium Chloride 0.9% 500 ml @ 167 mls/hr IVPB Q16H [facility] Rx#:[id number] Oral 980 240 340 Output: Urine 750 1450 1000 Other: Voiding Method Toilet Urinal # Voids 1 - Exam GENERAL EXAM: Alert, comfortable in no apparent distress. HEAD: Normocephalic. EYES: Normal reaction of pupils, equal size. NOSE: Clear with pink turbinates. THROAT: No erythema or exudates. NECK: No masses, no JVD. CHEST: No chest wall deformity. LUNGS: Equal air entry with no crackles, wheeze, rhonchi or dullness. Bases diminished CVS: S1 and S2 normal with no audible mumurs, regular rhythm. ABDOMEN: No hepatosplenomegaly, normal bowel sounds, no guarding or rigidity. EXTREMITIES: No edema noted, pedal pulses palpable. CENTRAL NERVOUS SYSTEM: No focal deficits, tone is normal in all 4 extremities. - Labs CBC & Chem 7: 03/09/18 05:40 03/09/18 05:40 Labs: Abnormal Lab Results - Last 24 Hours (Table) 03/09/18 03/09/18 Range/Units 11:33 16:46 POC Glucose (mg/dL) 145 H 172 H (75-99) mg/dL Microbiology - Last 24 Hours (Table) 03/06/18 18:20 Anaerobic Culture - Final Buttock Anaerobic Gm Negative Bacilli Anaerobic Gm Negative Bacilli#2 03/07/18 13:12 Blood Culture - Preliminary Blood No Growth after 48 hours 03/07/18 13:20 Blood Culture - Preliminary Blood No Growth after 48 hours 03/04/18 17:09 Blood Culture Gram Stain - Preliminary Blood Assessment and Plan Assessment: Assessment Sepsis with SIRS Anemia, iron deficiency Pulmonary hypertension with tricuspid regurg COPD Pneumonia Sebaceous cyst of the thighs Chronic persistent A. fib MRSA of the wound Plan Patient could be cleared for discharge from a pulmonary standpoint Home oxygen assessment prior to discharge Medications have been reviewed and will be continued as ordered. Antibiotics per ID Continue with pulmonary hygiene, coughing and deep breathing exercises, and supportive care. Supplemental oxygen to maintain oxygen saturations of 92% or better. Continue nebulizer treatments. GI and DVT prophylaxis. Cardiology and infectious disease also on consult, appreciate recommendations Increase activity as tolerated PT and OT We will continue to monitor labs/results and adjust treatment as necessary. I performed an examination of the patient and discussed their management with the nurse practitioner. I have reviewed the nurse practitioner's note and agree with the documented findings and plan of care.
[2018-03-10 12:00] VITALS: BP 104/68; PULSE 80
--- NOTE | 2018-03-10 14:35 | P.DS ---
Providers Date of admission: 03/04/18 18:18 Expected date of discharge: 03/10/18 Attending physician: Yanet Larkin Consults: 03/04/18 20:57 Consult Physician Routine Consulting Provider: Love Blackburn Consult Reason/Comments: Elevated BNP, SOB Do you want consulting provider notified?: Yes, Notify in am 03/04/18 20:58 Consult Physician Routine Consulting Provider: Rosmery Mcrae Consult Reason/Comments: SIRS, Fever, Pneumonia Do you want consulting provider notified?: Yes, Notify in am 03/06/18 10:41 Consult Physician Routine Consulting Provider: Cassy Diana Consult Reason/Comments: hypoxia, pneumonia Do you want consulting provider notified?: Already Contacted Primary care physician: Rosmery Mcrae Hospital Course: Discharge diagnosis Right gluteal wound and abscess related to MRSA patient will be discharged home on doxycycline and Flagyl per infectious disease. Discussed case with infectious disease okay to discharge home patient will be followed up closely with Dr. Mcrae Sirs-like process related to above Chronic intermittent atrial fibrillation Potential hypertensive cardiovascular disease Chronic renal failure stage III Hospital course This is a 72-year-old male, patient of Dr. Mcrae. He has a known past medical history of chronic sebaceous cysts of the thighs, hypertension and CVA. Patient reports he had been in good health yesterday afternoon started having severe chills and could not get warm. Reports that his teeth were chattering. He called his son and his son brought him into the emergency room. He is found to have a temp of 100 and initially started on Levaquin for possible pneumonia. Vancomycin also added because of the chronic sebaceous cysts and concerns for MRSA. His second chest x-ray showed a possible early infiltrate. Infectious disease and cardiology consulted. Patient did have elevated BNP of 4200 on admission. Troponins were negative. Patient seen by cardiology. They recommend to continue with fluids for patient's sepsis. Patient was on Humira for these sebaceous cysts. He stopped them about a month ago. And since then has had more drainage from the cyst. Patient denies any chest pain or cough. Does admit to having some shortness of breath. White count admission 11.8 lactic acid 4 fever of 100. His receiving IV vancomycin and Levaquin and IV fluids. Blood cultures pending. 03/08/2018, patient seen eval examined during the rounds clinically doing slightly better breathing more comfortably patient getting broad-spectrum antibiotics in obvious distress present hemodynamic status stable blood cultures have been negative final ID and wound culture is positive for MRSA 03/09/2018, patient seen eval reexamined while covering for Dr. brewer are clinically overall remains stable he is asking for discharge however patient remains on Y IV vancomycin will discuss with infectious disease services about discharge planning and antibiotics, respiratory status remains stable intermittent dry cough is present overall appetite is good patient is sleeping fairly well labs reviewed medications reviewed patient is also on Coumadin being dosed INR 1.9 in therapeutic range, BUN/creatinine is 14 and 1.3, continue improve progressively On 03/10/2018 patient is eager to go home. Patient is sitting comfortably up in chair with no complaints at this time. Discussed case with infectious disease Dr. Mcrae. Brian to discharge patient home without final blood culture results per ID. Patient will be discharged home on doxycycline and Flagyl will be followed up closely outpatient. Patient has been cleared for discharge from pulmonary standpoint will follow up outpatient Patient Condition at Discharge: Stable Plan - Discharge Summary Discharge Rx Participant: No New Discharge Prescriptions: New Doxycycline Hyclate 100 mg PO BID #28 tab metroNIDAZOLE [Flagyl] 500 mg PO Q8HR #42 tab Budesonide [Pulmicort] 0.5 mg INHALATION RT-BID #60 nebu Ipratropium-Albuterol Nebulize [Duoneb 0.5 mg-3 mg/3 ml Soln] 3 ml INHALATION RT-QID #60 ampul.neb Continue Riboflavin [Vitamin B-2] 50 mg PO HS Metoprolol Succinate (ER) [Toprol XL] 100 mg PO HS Chlorpheniramine Maleate 4 mg PO HS PRN PRN Reason: Allergy Symptoms Warfarin [Coumadin] 1 mg PO HS Finasteride [Proscar] 5 mg PO DAILY Aspirin EC [Ecotrin Low Dose] 81 mg PO HS Ferrous Sulfate [Feosol] 325 mg PO BID Discharge Medication List Aspirin EC [Ecotrin Low Dose] 81 mg PO HS 03/04/18 [History] Chlorpheniramine Maleate 4 mg PO HS PRN 03/04/18 [History] Ferrous Sulfate [Feosol] 325 mg PO BID 03/04/18 [History] Finasteride [Proscar] 5 mg PO DAILY 03/04/18 [History] Metoprolol Succinate (ER) [Toprol XL] 100 mg PO HS 03/04/18 [History] Riboflavin [Vitamin B-2] 50 mg PO HS 03/04/18 [History] Warfarin [Coumadin] 1 mg PO HS 03/04/18 [History] Budesonide [Pulmicort] 0.5 mg INHALATION RT-BID #60 nebu 03/10/18 [Rx] Doxycycline Hyclate 100 mg PO BID #28 tab 03/10/18 [Rx] Ipratropium-Albuterol Nebulize [Duoneb 0.5 mg-3 mg/3 ml Soln] 3 ml INHALATION RT -QID #60 ampul.neb 03/10/18 [Rx] metroNIDAZOLE [Flagyl] 500 mg PO Q8HR #42 tab 03/10/18 [Rx] Follow up Appointment(s)/Referral(s): Love Blackburn MD [STAFF PHYSICIAN] - 1 Week Cassy Diana DO [Doctor of Osteopathic Medicine] - 03/12/18 4:15 pm Anders Cuellar MD [REFERRING] - 03/20/18 1:30 pm (At [facility] [phone] ) Rosmery Mcrae MD [Primary Care Provider] - 03/16/18 2:00 pm (Friday [place] office [address] [place] [address] Road.) Ambulatory/Diagnostic Orders: Comprehensive Metabolic Panel [LAB.AMB] Time Frame: 2 Days, Location: None Selected Comprehensive Metabolic Panel [LAB.AMB] Time Frame: 2 Days, Location: None Selected Patient Instructions/Handouts: MRSA (Methicillin-Resistant Staphylococcus Aureus) (DC), Acute Wounds (DC) Activity/Diet/Wound Care/Special Instructions: Wound dressing instructions: Opticel gel fiber dressing to the bilateral gluteal wound. Change every 24 hours. Discharge Disposition: HOME SELF-CARE
--- NOTE | 2018-03-10 14:57 | PN ---
PROGRESS NOTE DATE OF SERVICE: 03/10/2018 REASON FOR FOLLOWUP: 1. Infected bilateral gluteal hidradenitis cyst. 2. Possible pneumonia. 3. Positive blood culture. INTERVAL HISTORY: The patient is currently afebrile. He is breathing comfortably at room air. Denies any significant chest pain, cough,. No abdominal pain or any worsening pain with positive gluteal wound area. PHYSICAL EXAMINATION: Blood pressure 104/68 with a pulse of 80, temperature of 98, he is 94% on room air. General description " elderly male up in the room in no distress respiratory system: Unlabored breathing clear to auscultation anteriorly heart S1, S2. Regular. Visit: Bilateral foot wounds congestion with change of the dressing. LABS: Hemoglobin is 8.8, white count of 7.2, BUN of 14, creatinine 1.30. DIAGNOSTIC IMPRESSION AND PLAN: 1. Patient with fever, source is multifactorial. The patient did have an infected hidradenitis system 2-point review related culture positive MRSA anaerobic gram- negative. Antibiotic is currently vancomycin, Flagyl, transition to oral doxycycline and Flagyl. Follow INR pretty closely for 2 weeks. Local wound care with Aquacel Silver dressing and missed doxycycline should be covered in the morning as well. 2. Positive blood culture with gram-positive ID still pending. Repeat culture has been negative. No need for workup at this point. MMODL / IJN: [id number] /
== END 2018-03-10 16:55 | disposition home or self-care (01) | DRG 871 ==
LOC: EC 16:34 → 6SEL 18:18
PROVIDERS: ADMIT Internal Medicine; ATTEND Internal Medicine
DX: A41.02 Sepsis due to Methicillin resistant Staphylococcus aureus (principal); E43 Unspecified severe protein-calorie malnutrition; J18.9 Pneumonia, unspecified organism; I47.2 Ventricular tachycardia; J44.0 Chronic obstructive pulmonary disease with (acute) lower respiratory infection; J98.11 Atelectasis; L02.31 Cutaneous abscess of buttock; L03.317 Cellulitis of buttock; N17.9 Acute kidney failure, unspecified; D50.9 Iron deficiency anemia, unspecified; E78.5 Hyperlipidemia, unspecified; E83.42 Hypomagnesemia; E86.0 Dehydration; I07.1 Rheumatic tricuspid insufficiency; I12.9 Hypertensive chronic kidney disease with stage 1 through stage 4 chronic kidney disease, or unspecified chronic kidney disease; I27.20 Pulmonary hypertension, unspecified; I48.2 Chronic atrial fibrillation; L72.3 Sebaceous cyst; L73.2 Hidradenitis suppurativa; N18.3 Chronic kidney disease, stage 3 (moderate); R09.02 Hypoxemia; Z79.01 Long term (current) use of anticoagulants; Z80.0 Family history of malignant neoplasm of digestive organs; Z86.73 Personal history of transient ischemic attack (TIA), and cerebral infarction without residual deficits; Z87.891 Personal history of nicotine dependence; Z79.82 Long term (current) use of aspirin; Z79.899 Other long term (current) drug therapy; Z68.29 Body mass index [BMI] 29.0-29.9, adult
CPT/HCPCS: 36415; 71046; 72192; 80048; 80053; 80202; 81001; 82550; 82553; 82728; 83540; 83550; 83605; 83735; 83880; 84443; 84484; 85025; 85610; 85730; 87040; 87070; 87075; 87077; 87086; 87186; 87205; 93306; 94640; 94760

== ENCOUNTER → 2018-05-13 | Outpatient (CLI) | payer OTHER ==
--- NOTE | 2018-05-13 13:04 | XR ---
EXAMINATION TYPE: XR chest 2V DATE OF EXAM: 05/13/2018 COMPARISON: 03/06/2018 TECHNIQUE: PA and lateral views submitted. HISTORY: Cough FINDINGS: There is hyperinflation of the lungs and cardiomegaly. Arthropathy of the shoulders with atherosclero tic change aorta. No pneumothorax. Coarsened interstitium is improved. There is residual right perihi lar abnormal density. IMPRESSION: 1. Improving interstitial venous congestion or pneumonitis. There is residual density in the right pe rihilar and infrahilar region. Follow-up to resolution is recommended. Could been the basis of residu al edema or infiltrate. Neoplastic process not excluded.
== END ==
LOC: RADXRMAIN 12:29
PROVIDERS: ATTEND Dermatology MOHS-Micrographic Surgery
DX: Z13.9 Encounter for screening, unspecified (principal)
CPT/HCPCS: 71046

== ENCOUNTER → 2018-10-15 | Outpatient (CLI) | payer MEDICARE ==
[2018-10-15 11:34] LABS: INR 1.3 (<1.2); Prothrombin Time 13.1 sec (9.0-12.0)
== END ==
LOC: LABWHC1 10:39
PROVIDERS: ATTEND Dentist Oral and Maxillofacial Surgery
DX: D68.9 Coagulation defect, unspecified (principal)
CPT/HCPCS: 36415; 85610

== ENCOUNTER 2019-04-21 13:22 | Inpatient (IN) | payer MEDICARE ==
[2019-04-21] MEDS ORDERED: KETOROLAC 30 MG/ML 1 ML VIAL IVP STA (14:52)
[2019-04-21] MEDS ORDERED: SODIUM CHLORIDE 0.9% 500 ML 500 ML IV STA ×2 (14:52→16:57)
--- NOTE | 2019-04-21 14:56 | ED ---
General Adult HPI - General Source: patient, RN notes reviewed Mode of arrival: wheelchair Limitations: no limitations <Amish Randolph - Last Filed: 04/21/19 18:15> <Sam Robert - Last Filed: 04/21/19 18:38> - General Chief complaint: Abdominal Pain Stated complaint: rt sided flank pain Time Seen by Provider: 04/21/19 14:22 - History of Present Illness Initial comments: 73-year-old male with a past medical history of atrial fibrillation, CVA, hyperlipidemia, hypertension, pneumonia, MRSA presents to the emergency department for a chief complaint of right flank pain. States this has been ongoing for 2 days. States it has been a constant pain. Denies any alleviating or aggravating factors. Denies any dysuria. Denies any radiating pain into the groin or testicle. Denies nausea or vomiting. No fevers or chills.Patient has no other complaints at this time including shortness of breath, chest pain, abdominal pain, nausea or vomiting, headache, or visual changes. (Amish Randolph) - Related Data Home Medications Medication Instructions Recorded Confirmed Aspirin EC [Ecotrin Low Dose] 81 mg PO HS 03/04/18 04/21/19 Ferrous Sulfate [Feosol] 325 mg PO BID 03/04/18 04/21/19 Finasteride [Proscar] 5 mg PO DAILY 03/04/18 04/21/19 Metoprolol Succinate (ER) [Toprol 100 mg PO HS 03/04/18 04/21/19 XL] Ergocalciferol (Vitamin D2) 50,000 unit PO Q7D 04/21/19 04/21/19 [Drisdol] Rivaroxaban [Xarelto] 20 mg PO DAILY 04/21/19 04/21/19 Allergies Allergy/AdvReac Type Severity Reaction Status Date / Time No Known Allergies Allergy Verified 04/21/19 17:13 Review of Systems ROS Other: All systems not noted in ROS Statement are negative. <Amish Randolph - Last Filed: 04/21/19 18:15> ROS Other: All systems not noted in ROS Statement are negative. <Sam Robert - Last Filed: 04/21/19 18:38> ROS Statement: Those systems with pertinent positive or pertinent negative responses have been documented in the HPI. Past Medical History Past Medical History: Atrial Fibrillation, CVA/TIA, Hyperlipidemia, Hypertension, Pneumonia, Prostate Disorder, Skin Disorder History of Any Multi-Drug Resistant Organisms: MRSA Date of last positivie culture/infection: 03/06/18 MDRO Source:: BUTTOCK Past Surgical History: Appendectomy, Tonsillectomy Additional Past Surgical History / Comment(s): cyst removal-..pt stated has dnsg on hips Past Anesthesia/Blood Transfusion Reactions: No Reported Reaction Past Psychological History: No Psychological Hx Reported Smoking Status: Former smoker Past Alcohol Use History: None Reported Past Drug Use History: None Reported - Past Family History Father Family Medical History: No Reported History Additional Family Medical History / Comment(s): at age 94 form"old age" Mother Family Medical History: Cancer Additional Family Medical History / Comment(s): mom at age 67 from pancreatic cancer <Amish Randolph - Last Filed: 04/21/19 18:15> General Exam Limitations: no limitations General appearance: alert, in no apparent distress Head exam: Present: atraumatic, normocephalic, normal inspection Eye exam: Present: normal appearance, PERRL, EOMI. Absent: scleral icterus, conjunctival injection, periorbital swelling ENT exam: Present: normal exam, mucous membranes moist Neck exam: Present: normal inspection, full ROM. Absent: tenderness, meningismus, lymphadenopathy Respiratory exam: Present: normal lung sounds bilaterally. Absent: respiratory distress, wheezes, rales, rhonchi, stridor Cardiovascular Exam: Present: regular rate, normal rhythm, normal heart sounds. Absent: systolic murmur, diastolic murmur, rubs, gallop, clicks GI/Abdominal exam: Present: soft, normal bowel sounds. Absent: distended, tenderness (no abdominal tenderness), guarding, rebound, rigid Back exam: Absent: paraspinal tenderness, vertebral tenderness Psychiatric exam: Present: normal affect, normal mood <Amish Randolph - Last Filed: 04/21/19 18:15> Course <Sam Robert - Last Filed: 04/21/19 18:38> Vital Signs 04/21/19 04/21/19 04/21/19 13:26 16:28 18:27 Temperature 97.9 F 97 F L Pulse Rate 79 55 L 63 Respiratory 18 18 18 Rate Blood Pressure 126/74 118/74 133/78 O2 Sat by Pulse 99 100 100 Oximetry - Reevaluation(s) Reevaluation #1: 04/21/19 18:38 PA supervision: I proceeded [id number] evaluation the patient did present with complaints of 2-3 days of right flank pain he does have evidence of a nonobstructing kidney stone additionally he has evidence of acute kidney injury with elevation of his creatinine. I did discuss the case with Dr. shipman are patient be admitted with consultation by nephrology and Dr. Mcrae (Sam Robert) Medical Decision Making - Lab Data Result diagrams: 04/21/19 15:00 04/21/19 15:00 <Amish Randolph - Last Filed: 04/21/19 18:15> - Lab Data Result diagrams: 04/21/19 15:00 04/21/19 15:00 <Sam Robert - Last Filed: 04/21/19 18:38> - Medical Decision Making 73-year-old disheveled male with a past history of atrial fibrillation, CVA, hyperlipidemia, hypertension and presents for chief, and of right flank pain. This has been ongoing for 2 days. Pain is been constant. Denies any alleviating or aggravating factors. On exam no right CVA tenderness. No abdominal tenderness. Patient does have hidradenitis suppiritiva noted of the back and groin which she states has been consistent for 10 years. CBC shows a hemoglobin of 8.9 which is chronic for patient. CMP shows a creatinine of 2.2 which is above patient's baseline. Given creatinine a CT was ordered to rule out obstructive kidney stone. This showed a nonobstructing tiny right renal calculus but no obstructing stone or hydronephrosis. There was also an incidental finding of a probably old and minimal chronic lower abdominal aortic dissection with mild aneurysm 3.5 cm of the lower abdominal aorta. Patient's symptoms are not consistent with an acute dissection. However given the patient's creatinine level he has acute kidney injury and will be admitted for monitoring and IV hydration and further management. (Amish Randolph) - Lab Data Lab Results 04/21/19 04/21/19 04/21/19 Range/Units 15:00 15:00 15:00 WBC 9.7 (3.8-10.6) k/uL RBC 3.36 L (4.30-5.90) m/uL Hgb 8.9 L (13.0-17.5) gm/dL Hct 31.3 L (39.0-53.0) % MCV 93.3 (80.0-100.0) fL MCH 26.4 (25.0-35.0) pg MCHC 28.3 L (31.0-37.0) g/dL RDW 15.0 (11.5-15.5) % Plt Count 254 (150-450) k/uL Neutrophils % 82 % Lymphocytes % 8 % Monocytes % 5 % Eosinophils % 1 % Basophils % 2 % Neutrophils # 8.0 H (1.3-7.7) k/uL Lymphocytes # 0.8 L (1.0-4.8) k/uL Monocytes # 0.5 (0-1.0) k/uL Eosinophils # 0.1 (0-0.7) k/uL Basophils # 0.2 (0-0.2) k/uL Sodium 138 (137-145) mmol/L Potassium 4.2 (3.5-5.1) mmol/L Chloride 107 (98-107) mmol/L Carbon Dioxide 20 L (22-30) mmol/L Anion Gap 11 mmol/L BUN 24 H (9-20) mg/dL Creatinine 2.12 H (0.66-1.25) mg/dL Est GFR (CKD-EPI)AfAm 35 (>60 ml/min/1.73 sqM) Est GFR (CKD-EPI)NonAf 30 (>60 ml/min/1.73 sqM) Glucose 113 H (74-99) mg/dL Calcium 8.5 (8.4-10.2) mg/dL Total Bilirubin 0.4 (0.2-1.3) mg/dL AST 17 (17-59) U/L ALT 8 L (21-72) U/L Alkaline Phosphatase 127 H (38-126) U/L Total Protein 10.0 H (6.3-8.2) g/dL Albumin 3.2 L (3.5-5.0) g/dL Amylase 52 (30-110) U/L Lipase 62 (23-300) U/L Urine Color Yellow Urine Appearance Cloudy (Clear) Urine pH 5.5 (5.0-8.0) Ur Specific Rose 1.022 (1.001-1.035) Urine Protein 1+ H (Negative) Urine Glucose (UA) Negative (Negative) Urine Ketones Negative (Negative) Urine Blood Negative (Negative) Urine Nitrite Negative (Negative) Urine Bilirubin Negative (Negative) Urine Urobilinogen 2.0 (<2.0) mg/dL Ur Leukocyte Esterase Negative (Negative) Urine RBC 1 (0-5) /hpf Urine WBC 1 (0-5) /hpf Urine Bacteria Rare H (None) /hpf Hyaline Casts 24 H (0-2) /lpf Urine Mucus Few H (None) /hpf Disposition Is patient prescribed a controlled substance at d/c from ED?: No Time of Disposition: 18:16 <Amish Randolph - Last Filed: 04/21/19 18:15> <Sam Robert - Last Filed: 04/21/19 18:38> Clinical Impression: MANE (acute kidney injury), Right flank pain, Aortic aneurysm Disposition: HOME SELF-CARE Condition: Good Referrals: Rosmery Mcrae MD [Primary Care Provider] - 1-2 days
[2019-04-21] MEDS ORDERED: LORazepam 1 MG TAB PO STA (16:17)
[2019-04-21 16:23] LABS: Basophils # (A) 0.2 k/uL (0-0.2); Basophils % (A) 2 %; Eosinophils # (A) 0.1 k/uL (0-0.7); Eosinophils % (A) 1 %; HCT 31.3 % (39.0-53.0); HGB 8.9 gm/dL (13.0-17.5); Lymphocytes # (A) 0.8 k/uL (1.0-4.8); Lymphocytes % (A) 8 %; MCH 26.4 pg (25.0-35.0); MCHC 28.3 g/dL (31.0-37.0); MCV 93.3 fL (80.0-100.0); Mean Platelet Volume 8.9; Monocytes # (A) 0.5 k/uL (0-1.0); Monocytes % (A) 5 %; Neutrophils % (A) 82 %; Platelet Count 254 k/uL (150-450); RBC 3.36 m/uL (4.30-5.90); WBC 9.7 k/uL (3.8-10.6)
[2019-04-21 16:33] LABS: Albumin 3.2 g/dL (3.5-5.0); Calcium 8.5 mg/dL (8.4-10.2); Potassium 4.2 mmol/L (3.5-5.1); Total Bilirubin 0.4 mg/dL (0.2-1.3)
--- NOTE | 2019-04-21 17:35 | CT ---
EXAMINATION TYPE: CT abdomen pelvis wo con DATE OF EXAM: 04/21/2019 COMPARISON: None HISTORY: Right flank pain CT DLP: 832.2 mGycm Automated exposure control for dose reduction was used. TECHNIQUE: Helical acquisition of images was performed from the lung bases through the pelvis. FINDINGS: Lung bases are clear. There is no pleural effusion. Heart is enlarged. There is no pericardial effusi on. Liver shows no focal defect. Gallbladder appears normal. Spleen is intact. There is no sign of pancre atic mass. There is mild renal cortical atrophy. There is no hydronephrosis. There is 1.5 cm cortical cyst later al right kidney. There is 2 mm calculus interpolar anterior right kidney. There is renal vascular key cification. There is 3.5 cm mild aneurysm of the lower abdominal aorta. There is calcification in the lumen that probably relates to old chronic dissection. There is extensive atheromatous change in the iliac and femoral arteries. Bladder is almost empty. There is prostatic calcification. There is no f ree fluid in the pelvis. There is no evidence of a bowel obstruction. I see no intestinal wall thicke joanne. There is no inguinal hernia. Appendix is not definitely seen. There is no sign of thickened chris endix. There is no mesenteric edema. There is no sign of ascites or free air. There is multilevel mod erate spondylosis in the lumbar spine. There is no compression fracture. Bony pelvis is intact. IMPRESSION: ATHEROSCLEROTIC VASCULAR DISEASE. THERE IS PROBABLY OLD MINIMAL CHRONIC LOWER ABDOMINAL AORTIC DISSEC TION. MILD ANEURYSM LOWER ABDOMINAL AORTA. NO ACUTE ABNORMALITY IN THE ABDOMEN AND PELVIS. NONOBSTRUC TING TINY RIGHT RENAL CALCULUS.
[2019-04-21 17:51] LABS: Appearance,Urine Cloudy (Clear); Bacteria,Urine Rare /hpf; Bilirubin,Urine Negative (Negative); Blood,Urine Negative (Negative); Color,Urine Yellow; Glucose,Urine (UA) Negative (Negative); Hyaline Casts,Urine 24 /lpf (0-2); Ketones,Urine Negative (Negative); Leukocyte Esterase,Urine Negative (Negative); Mucus,Urine Few /hpf; Nitrite,Urine Negative (Negative); PH, Urine 5.5 (5.0-8.0); Protein,Urine 1+ (Negative); RBC,Urine 1 /hpf (0-5); Specific Gravity,Urine 1.022 (1.001-1.035); WBC,Urine 1 /hpf (0-5)
[2019-04-21] MEDS ORDERED: ONDANSETRON 4 MG/2 ML VIAL IVP PRN (18:19)
[2019-04-21] MEDS ORDERED: NALOXONE 0.4 MG/ML 1 ML VIAL IV PRN (18:19)
[2019-04-21] MEDS: HYDROcodone/APAP 5-325MG 1 EACH TAB PO PRN ×2 (18:34→22:22)
[2019-04-21] MEDS: SODIUM CHLORIDE 0.9% 1,000 ML IV SCH (18:39)
[2019-04-22] MEDS: SODIUM CHLORIDE 0.9% 1,000 ML IV SCH ×4 (03:14→20:13)
[2019-04-22 07:47] LABS: Potassium 4.4 mmol/L (3.5-5.1)
[2019-04-22 09:24] LABS: Basophils % (A) 1 %; Eosinophils # (A) 0.1 k/uL (0-0.7); Eosinophils % (A) 2 %; HCT 26.4 % (39.0-53.0); HGB 8.3 gm/dL (13.0-17.5); Hypochromasia Moderate; Lymphocytes # (A) 1.1 k/uL (1.0-4.8); Lymphocytes % (A) 18 %; MCH 30.3 pg (25.0-35.0); MCHC 31.3 g/dL (31.0-37.0); MCV 96.8 fL (80.0-100.0); Mean Platelet Volume 9.2; Monocytes # (A) 0.4 k/uL (0-1.0); Monocytes % (A) 6 %; Neutrophils # (A) 4.3 k/uL (1.3-7.7); Neutrophils % (A) 70 %; Platelet Count 218 k/uL (150-450); RBC 2.73 m/uL (4.30-5.90); RDW 15.6 % (11.5-15.5); WBC 6.1 k/uL (3.8-10.6)
--- NOTE | 2019-04-22 10:56 | P.HPIM ---
History of Present Illness H&P Date: 04/22/19 Chief Complaint: Right flank pain This is a 73-year-old male patient of Dr. Mcrae. Patient presents with main complaint of right flank pain patient reports this is been going on for 2 days. Patient reports that the pain is constant. Patient denies any radiation of pain. Patient denies any fever nausea vomiting or diarrhea. Patient does have a past medical history of atrial fibrillation in which he is on Cymbalta, CVA, chronic anemia, hyperlipidemia, hypertension, pneumonia, MRSA, Hydradenitis suppurativa and when she has multiple open wounds on his body patient follows with dermatology and Dr. Martínez for this issue. CT of abdomen and pelvis completed showing arthrosclerotic vascular disease. There is probably old minimum chronic lower abdominal aortic dissection mild aneurysm lower abdominal aorta. No acute abnormality in the abdomen and pelvis nonobstructing tiny right renal calculus. Patient's creatinine also elevated at 2.12 and bun 24. At this time Dr. Mcrae will be consulted, nephrology services and vascular surgery. Patient is currently resting comfortably in bed pain is controlled with pain medication. Patient denies chest pain or shortness of breath. Patient denies nausea vomiting or diarrhea. Patient denies any burning with urination. Review of Systems Please refer to HPI otherwise unremarkable Past Medical History Past Medical History: Atrial Fibrillation, CVA/TIA, Hyperlipidemia, Hypertension, Pneumonia, Prostate Disorder, Skin Disorder History of Any Multi-Drug Resistant Organisms: MRSA Date of last positivie culture/infection: 03/06/18 MDRO Source:: BUTTOCK Past Surgical History: Appendectomy, Tonsillectomy Additional Past Surgical History / Comment(s): cyst removal-..pt stated has dnsg on hips Past Anesthesia/Blood Transfusion Reactions: No Reported Reaction Past Psychological History: No Psychological Hx Reported Additional Psychological History / Comment(s): pt lives alone in single level home that has 2 steps, no pets. drives. has a private home care nurse that does drellyn changes Smoking Status: Former smoker Past Alcohol Use History: None Reported Additional Past Alcohol Use History / Comment(s): started smoking at age 18(1962) and [id number], smoked 2 ppd Past Drug Use History: None Reported - Past Family History Father Family Medical History: No Reported History Additional Family Medical History / Comment(s): at age 94 form"old age" Mother Family Medical History: Cancer Additional Family Medical History / Comment(s): mom at age 67 from pancreatic cancer Medications and Allergies Home Medications Medication Instructions Recorded Confirmed Type Aspirin EC [Ecotrin Low Dose] 81 mg PO HS 03/04/18 04/21/19 History Ferrous Sulfate [Feosol] 325 mg PO BID 03/04/18 04/21/19 History Finasteride [Proscar] 5 mg PO DAILY 03/04/18 04/21/19 History Metoprolol Succinate (ER) [Toprol 100 mg PO HS 03/04/18 04/21/19 History XL] Ergocalciferol (Vitamin D2) 50,000 unit PO Q7D 04/21/19 04/21/19 History [Drisdol] Rivaroxaban [Xarelto] 20 mg PO DAILY 04/21/19 04/21/19 History Allergies Allergy/AdvReac Type Severity Reaction Status Date / Time No Known Allergies Allergy Verified 04/21/19 17:13 Physical Exam Vitals: Vital Signs Temp Pulse Pulse Resp BP BP Pulse Ox 04/22/19 05:00 97.6 F 47 L 16 98/56 100 04/22/19 00:36 68 04/21/19 20:20 57 L 17 130/85 99 04/21/19 19:07 97.5 F L 68 18 159/89 99 04/21/19 18:27 97 F L 63 18 133/78 100 04/21/19 16:28 55 L 18 118/74 100 04/21/19 13:26 97.9 F 79 18 126/74 99 Intake and Output 04/21/19 04/22/19 04/22/19 22:59 06:59 14:59 Intake Total 840 7741 Balance 840 7741 Intake: Intake, IV Titration 250 7501 Amount Sodium Chloride 0.9% 1, 250 7501 000 ml @ 125 mls/hr IV . Q8H [facility] Rx#:[id number] Oral 590 240 Other: # Voids 1 2 Head normocephalic Neck supple Lungs clear to auscultation bilaterally no wheezing or crackles Heart regular rate and rhythm S1-S2, no rub or gallop Abdomen is soft nontender nondistended positive bowel sounds no hepatosplenomegaly. Right flank pain to palpation Extremities no edema Neuro alert and orientated to 3 Multiple open skin wounds due to patient's chronic condition of hidradentitis supprativa Results CBC & Chem 7: 04/22/19 07:05 04/22/19 07:05 Labs: Abnormal Lab Results - Last 24 Hours (Table) 04/21/19 04/21/19 04/21/19 Range/Units 15:00 15:00 15:00 RBC 3.36 L (4.30-5.90) m/uL Hgb 8.9 L (13.0-17.5) gm/dL Hct 31.3 L (39.0-53.0) % MCHC 28.3 L (31.0-37.0) g/dL RDW (11.5-15.5) % Neutrophils # 8.0 H (1.3-7.7) k/uL Lymphocytes # 0.8 L (1.0-4.8) k/uL Chloride (98-107) mmol/L Carbon Dioxide 20 L (22-30) mmol/L BUN 24 H (9-20) mg/dL Creatinine 2.12 H (0.66-1.25) mg/dL Glucose 113 H (74-99) mg/dL Calcium (8.4-10.2) mg/dL ALT 8 L (21-72) U/L Alkaline Phosphatase 127 H (38-126) U/L Total Protein 10.0 H (6.3-8.2) g/dL Albumin 3.2 L (3.5-5.0) g/dL Urine Protein 1+ H (Negative) Urine Bacteria Rare H (None) /hpf Hyaline Casts 24 H (0-2) /lpf Urine Mucus Few H (None) /hpf 04/22/19 04/22/19 Range/Units 07:05 07:05 RBC 2.73 L (4.30-5.90) m/uL Hgb 8.3 L (13.0-17.5) gm/dL Hct 26.4 L (39.0-53.0) % MCHC (31.0-37.0) g/dL RDW 15.6 H (11.5-15.5) % Neutrophils # (1.3-7.7) k/uL Lymphocytes # (1.0-4.8) k/uL Chloride 110 H (98-107) mmol/L Carbon Dioxide (22-30) mmol/L BUN 28 H (9-20) mg/dL Creatinine 1.89 H (0.66-1.25) mg/dL Glucose (74-99) mg/dL Calcium 8.0 L (8.4-10.2) mg/dL ALT (21-72) U/L Alkaline Phosphatase (38-126) U/L Total Protein (6.3-8.2) g/dL Albumin (3.5-5.0) g/dL Urine Protein (Negative) Urine Bacteria (None) /hpf Hyaline Casts (0-2) /lpf Urine Mucus (None) /hpf Thrombosis Risk Factor Assmnt - Choose All That Apply Any of the Below Risk Factors Present?: No Other Risk Factors: Yes Each Risk Factor Represents 2 Points: Age 61-74 years Thrombosis Risk Factor Assessment Total Risk Factor Score: 2 Thrombosis Risk Factor Assessment Level: Low Risk Assessment and Plan Assessment: 1. Right flank pain. CT of abdomen and pelvis completed showing CHRONIC vascular disease. There is probably old minimum chronic lower abdominal aortic dissection. Mild aneurysm lower abdominal aorta. No acute abnormality in the abdomen and pelvis. Nonobstructing tiny right renal calculus. At this time nephrology vascular surgery has been consulted 2. Acute kidney injury. Creatinine elevated at 2.12. Nephrology services have been consulted. Normal saline maintained at 125 3. Multiple open skin wounds related to patient's chronic condition of Hidradentits supprativa. Dr. Mcrae has been consulted 4. History of MRSA in the skin wounds 5. Atrial fibrillation patient maintained on xarelto. Xarelto currently on hold until patient is evaluated by vascular surgery 6. Anemia with known iron deficiency anemia. Patient is maintained on ferrous sulfate current hemoglobin 8.6 his does appear patient's baseline 7. History of essential hypertension 8. History of CVA 9. History of BPH. DVT prophylaxis SCDs until patient is evaluated by vascular surgery. GI prophylaxis Pepcid Time with Patient: Greater than 30 (Greater than 60% of the total time spent in counseling and coordination of care. I performed an examination of the patient and discussed their management with the Nurse Practitioner. I have reviewed the Nurse Practitioner's notes and agree with the documented findings and plan of care)
--- NOTE | 2019-04-22 11:44 | CONS ---
CONSULTATION REASON FOR CONSULT: Renal failure. HISTORY OF PRESENT ILLNESS: Patient is a 73-year-old male who has a history of hypertension, hyperlipidemia. He has previous history of A. Fib, CVA. Patient came into the hospital with complaints of pain in his right abdominal area and right flank area. No history of fever, chills, nausea, vomiting or diarrhea. The patient denied any prior history of kidney diseases. CAT scan of the abdomen done on admission shows tiny right renal calculus. No obstructive uropathy is noted. Serum creatinine was 2.1 mg/dL on initial admission. It is down to 1.89 today. Review of previous labs shows a prior creatinine of 1.3 on 03/09/2018. The patient denies use of any nonsteroidal anti-inflammatory agents. His blood pressure was not low initially. However, last blood pressure noted here was 98/56. The patient did receive a dose of Toradol yesterday. He was maintained on IV fluids. I do not see them running right now. PAST MEDICAL HISTORY: Hypertension, hyperlipidemia, history of CVA, TIA, A. Fib, previous history of pneumonia, history of MRSA skin infection, history of BPH. PAST SURGICAL HISTORY: Appendectomy, tonsillectomy, cyst removal. SOCIAL HISTORY: Patient is a former smoker. No history of drug abuse or alcohol abuse. MEDICATIONS: Medications prior to admission included aspirin, Proscar, Toprol, vitamin D2, Xarelto. ALLERGIES: None. REVIEW OF SYSTEMS: As per HPI; other systems negative. PHYSICAL EXAMINATION: On examination, patient is comfortable, awake, alert, oriented x3. He is not in any acute distress. Blood pressure this morning was 98/56, heart rate 47 per minute. He is afebrile. EXAMINATION OF THE HEART: S1, S2. EXAMINATION OF THE LUNGS: Bilateral breath sounds are heard. ABDOMEN: Soft, nontender. Examination of the lower extremities shows no significant edema. DIRECTOR MACHINE EXAM: Grossly intact. LABS: Labs show hemoglobin 8.3, sodium 138, potassium 4.4, BUN 28, serum creatinine 1.89. UA is fairly unremarkable with 1+ protein noted. No cells or blood is seen. ASSESSMENT: 1. Acute kidney injury, most likely prerenal, currently slightly improved. The patient received IV fluids on admission. He has had good urine output. No major hydronephrosis noted on the CAT scan of the abdomen. The patient did get one dose of Toradol, which I will continue to hold off for now. His blood pressure is slightly on the lower side and if his blood pressure remains low, I will decrease the Lopressor as heart rate is also slightly on the lower side at 57 and 47 beats per minute. 2. Rule out chronic kidney disease. Previous creatinine 1.3 in 2018. Etiology is likely nephrosclerosis. Patient does have 1+ protein on urinalysis. This will need to be repeated and we will obtain further workup if he continues to have proteinuria. 3. Anemia, rule out iron deficiency. 4. History of cerebrovascular accident. 5. Atrial fibrillation, controlled ventricular response, maintained on Xarelto. PLAN: Avoid all nonsteroidal anti-inflammatory agents. Check chest x-ray in a.m. Maintain gentle IV hydration. Check iron profile. Decrease Lopressor if heart rate and blood pressure remain low. Repeat renal profile in a.m. We do not need to check an ultrasound as patient already had a CAT scan done. He will need follow up as outpatient for CKD and further workup of proteinuria if it persists. Thank you for this consultation. We will continue to follow the patient with you during his hospitalization. MMODL / IJN: [id number] /
--- NOTE | 2019-04-22 15:38 | XR ---
EXAMINATION TYPE: XR chest 2V DATE OF EXAM: 04/22/2019 COMPARISON: Prior chest x-ray 05/13/2018 HISTORY: Congestive heart failure TECHNIQUE: Frontal and lateral views of the chest are obtained. FINDINGS: Prominent lung volume could be indicative of underlying COPD. There is relative flattening the hemidiaphragms. There is no focal air space opacity, pleural effusion, or pneumothorax seen. The cardiac silhouette size is enlarged and stable. The osseous structures are intact. There are overl jorge cardiac leads. There is some mild prominence of interstitium as on prior. IMPRESSION: No acute cardiopulmonary process. Cardiomegaly as on prior exam.
--- NOTE | 2019-04-22 16:39 | P.CON ---
Consult Note - . Consult date: 04/22/19 Assessment/Plan:: Patient is a 73-year-old gentleman who was evaluated from a vascular surgical standpoint in reference to aortic occlusion. The patient is recently status post spine surgery performed by for complaints of hip and back discomfort associated with ambulation. Prior to undergoing spine surgery the patient apparently was evaluated by another vascular surgeon who referred the patient to spine surgery for evaluation. The patient reports a history of hip/gluteal discomfort with ambulation of flow less than 2 blocks which resolves with a simple act of discontinuation of his ambulation. There is no history of ischemic rest pain or nonhealing ulceration. The patient has a remote history of tobacco use. He presented to the hospital complaining of left flank pain beginning approximately 2-3 days prior to his presentation. There's no previous similar symptoms. He denies chills or fevers. He denies any previous neurologic event. He apparently had undergone a carotid duplex approximately 1 year prior and relates no significant problems identified on the duplex studies. Past surgical history significant for appendectomy, recent spine surgery. Past social history is significant for tobacco use. The patient has a greater than [id number] tobacco use history although he stopped smoking approximate 5 years prior. Past medical history is significant for coronary disease/atrial fibrillation, hypertension and cerebrovascular accident. Physical examination revealed the patient afebrile vital signs are stable. He is awake, alert, cooperative in no apparent distress. Neck was supple and free of adenopathy or bruit. Heart was regular with an occasional ectopic beat noted. Lungs were clear to auscultation bilaterally. Abdomen was soft and otherwise benign. All lower extremity pulses bilaterally are absent. There is no cyanosis or edema. Toes are freely movable and nontender. Review of CAT scan angiogram demonstrates large splenic infarct as well as infarct of the right kidney as well as total occlusion of the aorta and bilateral iliac segments. Review of laboratory values demonstrates hemoglobin 8.3 hematocrit 26.4. Blood urea nitrogen and creatinine are 28 and 1.89 respectively. Ankle brachial index is 0.34 on the right and 0.39 on the left. 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 2: History of tobacco abuse totaling greater than 100 pack years, quitting 5 years prior. 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 5: Anemia possibly postoperative. 6: Acute kidney injury most likely secondary to renal infarct. Recommendation: I've taken the liberty of ordering arterial Doppler lower extremities to document the degree of arterial insufficiency of the lower extremities. I await patient's full recovery from his spine surgery and should his pain which I suspect is vascular in nature have not improved with spine surgery further evaluation from a vascular standpoint would be warranted. Thank you very much for allowing me to participate in the care of your patient. I trust this consultation is useful for you.
--- NOTE | 2019-04-22 17:18 | P.CON ---
Consult Note - . Consult date: 04/22/19 Assessment/Plan:: Please disregard previous consult as this was entered and air or under this patient's medical record. 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 This is been ongoing for the greater part of 10 years. The patient has seen plastic surgery in the past although has not followed up with plastic surgery for more than 2-3 years. During workup of his problem the patient was found to have a relatively small 3.5 cm infrarenal abdominal aortic aneurysm with a short segment aortic dissection identified below the renal level. The patient does not complain of claudication type symptoms. Past medical history significant for CVA, atrial fibrillation, hypertension, dyslipidemia and hidradenitis. Social history significant for greater than [id number] tobacco use. Laboratory Tests Range/Units 04/21/19 04/21/19 04/21/19 15:00 15:00 15:00 WBC (3.8-10.6) k/uL 9.7 RBC (4.30-5.90) m/uL 3.36 L Hgb (13.0-17.5) gm/dL 8.9 L Hct (39.0-53.0) % 31.3 L MCV (80.0-100.0) fL 93.3 MCH (25.0-35.0) pg 26.4 MCHC (31.0-37.0) g/dL 28.3 L RDW (11.5-15.5) % 15.0 Plt Count (150-450) k/uL 254 Neutrophils % % 82 Lymphocytes % % 8 Monocytes % % 5 Eosinophils % % 1 Basophils % % 2 Neutrophils # (1.3-7.7) k/uL 8.0 H Lymphocytes # (1.0-4.8) k/uL 0.8 L Monocytes # (0-1.0) k/uL 0.5 Eosinophils # (0-0.7) k/uL 0.1 Basophils # (0-0.2) k/uL 0.2 Hypochromasia Sodium (137-145) mmol/L 138 Potassium (3.5-5.1) mmol/L 4.2 Chloride (98-107) mmol/L 107 Carbon Dioxide (22-30) mmol/L 20 L Anion Gap mmol/L 11 BUN (9-20) mg/dL 24 H Creatinine (0.66-1.25) mg/dL 2.12 H Est GFR (CKD-EPI)AfAm (>60 ml/min/1.73 sqM) 35 Est GFR (CKD-EPI)NonAf (>60 ml/min/1.73 sqM) 30 Glucose (74-99) mg/dL 113 H Calcium (8.4-10.2) mg/dL 8.5 Total Bilirubin (0.2-1.3) mg/dL 0.4 AST (17-59) U/L 17 ALT (21-72) U/L 8 L Alkaline Phosphatase (38-126) U/L 127 H Total Protein (6.3-8.2) g/dL 10.0 H Albumin (3.5-5.0) g/dL 3.2 L Amylase (30-110) U/L 52 Lipase (23-300) U/L 62 Urine Color Yellow Urine Appearance (Clear) Cloudy Urine pH (5.0-8.0) 5.5 Ur Specific [place] (1.001-1.035) 1.022 Urine Protein (Negative) 1+ H Urine Glucose (UA) (Negative) Negative Urine Ketones (Negative) Negative Urine Blood (Negative) Negative Urine Nitrite (Negative) Negative Urine Bilirubin (Negative) Negative Urine Urobilinogen (<2.0) mg/dL 2.0 Ur Leukocyte Esterase (Negative) Negative Urine RBC (0-5) /hpf 1 Urine WBC (0-5) /hpf 1 Urine Bacteria (None) /hpf Rare H Hyaline Casts (0-2) /lpf 24 H Urine Mucus (None) /hpf Few H Range/Units 04/22/19 04/22/19 07:05 07:05 WBC (3.8-10.6) k/uL 6.1 RBC (4.30-5.90) m/uL 2.73 L Hgb (13.0-17.5) gm/dL 8.3 L Hct (39.0-53.0) % 26.4 L MCV (80.0-100.0) fL 96.8 MCH (25.0-35.0) pg 30.3 MCHC (31.0-37.0) g/dL 31.3 RDW (11.5-15.5) % 15.6 H Plt Count (150-450) k/uL 218 Neutrophils % % 70 Lymphocytes % % 18 Monocytes % % 6 Eosinophils % % 2 Basophils % % 1 Neutrophils # (1.3-7.7) k/uL 4.3 Lymphocytes # (1.0-4.8) k/uL 1.1 Monocytes # (0-1.0) k/uL 0.4 Eosinophils # (0-0.7) k/uL 0.1 Basophils # (0-0.2) k/uL 0.0 Hypochromasia Moderate Sodium (137-145) mmol/L 138 Potassium (3.5-5.1) mmol/L 4.4 Chloride (98-107) mmol/L 110 H Carbon Dioxide (22-30) mmol/L 22 Anion Gap mmol/L 6 BUN (9-20) mg/dL 28 H Creatinine (0.66-1.25) mg/dL 1.89 H Est GFR (CKD-EPI)AfAm (>60 ml/min/1.73 sqM) 40 Est GFR (CKD-EPI)NonAf (>60 ml/min/1.73 sqM) 35 Glucose (74-99) mg/dL 88 Calcium (8.4-10.2) mg/dL 8.0 L Total Bilirubin (0.2-1.3) mg/dL AST (17-59) U/L ALT (21-72) U/L Alkaline Phosphatase (38-126) U/L Total Protein (6.3-8.2) g/dL Albumin (3.5-5.0) g/dL Amylase (30-110) U/L Lipase (23-300) U/L Urine Color Urine Appearance (Clear) Urine pH (5.0-8.0) Ur Specific [place] (1.001-1.035) Urine Protein (Negative) Urine Glucose (UA) (Negative) Urine Ketones (Negative) Urine Blood (Negative) Urine Nitrite (Negative) Urine Bilirubin (Negative) Urine Urobilinogen (<2.0) mg/dL Ur Leukocyte Esterase (Negative) Urine RBC (0-5) /hpf Urine WBC (0-5) /hpf Urine Bacteria (None) /hpf Hyaline Casts (0-2) /lpf Urine Mucus (None) /hpf Physical examination revealed a 73-year-old male who was resting comfortably in bed who is alert cooperative no apparent distress. Neck is supple free of adenopathy or bruit. Abdomen is soft and benign. Femoral pulses are intact bilaterally. Multiple areas of hidradenitis are noted in the inguinal and scrotal areas as well as on the hip area on the right. Review of computed tomography scan demonstrates a 3.5 cm infrarenal abdominal aortic aneurysm with a small area of dissection which appears to be chronic. Significant calcific changes are identified within the aortoiliac segments. Impression: The patient has a small 3.5 cm infrarenal abdominal aortic aneurysm with associated dissection. This appears to be chronic and does not appear to be bothersome for the patient. Plan: Patient should have yearly ultrasound of his aorta for surveillance purposes. No intervention is required at this time. From a surgical standpoint oral anticoagulation may be resumed. Thank you very much for allowing me to participate in the care of your patient. I trust this letter is useful to you.
[2019-04-22] MEDS: FERROUS SULFATE 325 MG TAB PO SCH (20:08)
[2019-04-22] MEDS: METOPROLOL SUCCINATE (ER) 100 MG TAB.ER.24H PO SCH (21:59)
--- NOTE | 2019-04-23 00:47 | P.CONS ---
History of Present Illness - Reason for Consult Consult date: 04/22/19 Wounds to bilateral gluteal area Requesting physician: Yanet aLrkin - Chief Complaint Right flank pain 2 days - History of Present Illness Patient is 73 year old male with a past medical history significant for hidradenitis suppurata for the patient is currently out of Dr. Alexandre and recently completed a experimental drug treatment with him patient would has been a bilateral gluteal area currently the patient has been taking care of treated with the ABD dressing changes patient presenting to the [facility] ER with chief complaints of right groin area pain And has been going on for about 2 days. Described to more of a dull aching pain 5-6 out of 10 and no radiation with associated nausea no vomiting the patient did have CT of abdominal pelvis completed did shows mild aneurysmal dilatation of the future and a question of possible dissection for [facility] has been consulted patient also notices have mildly elevated creatinine with possible dehydration has been started on IV fluid infectious disease has been consulted for further management of his chronic bilateral gluteal wound, patient currently denies any worsening pain to the bilateral gluteal wound area mostly blood stained drainage recently no worsening foul-smelling drainage no fever has been recorded during this hospital stay and his white count has been normal Review of Systems Positive points has been mentioned in HPI rest of the systems are negative Past Medical History Past Medical History: Atrial Fibrillation, CVA/TIA, Hyperlipidemia, Hypertension, Pneumonia, Prostate Disorder, Skin Disorder History of Any Multi-Drug Resistant Organisms: MRSA Year Discovered:: 03/06/18 MDRO Source:: BUTTOCK Past Surgical History: Appendectomy, Tonsillectomy Additional Past Surgical History / Comment(s): cyst removal-..pt stated has dnsg on hips Past Anesthesia/Blood Transfusion Reactions: No Reported Reaction Past Psychological History: No Psychological Hx Reported Additional Psychological History / Comment(s): pt lives alone in single level home that has 2 steps, no pets. drives. has a private home care nurse that does drng changes Smoking Status: Former smoker Past Alcohol Use History: None Reported Additional Past Alcohol Use History / Comment(s): started smoking at age 18(1962) and [id number], smoked 2 ppd Past Drug Use History: None Reported - Past Family History Father Family Medical History: No Reported History Additional Family Medical History / Comment(s): at age 94 form"old age" Mother Family Medical History: Cancer Additional Family Medical History / Comment(s): mom at age 67 from pancreatic cancer Medications and Allergies Home Medications Medication Instructions Recorded Confirmed Type Aspirin EC [Ecotrin Low Dose] 81 mg PO HS 03/04/18 04/21/19 History Ferrous Sulfate [Feosol] 325 mg PO BID 03/04/18 04/21/19 History Finasteride [Proscar] 5 mg PO DAILY 03/04/18 04/21/19 History Metoprolol Succinate (ER) [Toprol 100 mg PO HS 03/04/18 04/21/19 History XL] Ergocalciferol (Vitamin D2) 50,000 unit PO Q7D 04/21/19 04/21/19 History [Drisdol] Rivaroxaban [Xarelto] 20 mg PO DAILY 04/21/19 04/21/19 History Allergies Allergy/AdvReac Type Severity Reaction Status Date / Time No Known Allergies Allergy Verified 04/21/19 17:13 Physical Exam Vitals: Vital Signs Temp Pulse Pulse Resp BP BP Pulse Ox 04/22/19 11:27 98 F 63 20 115/68 100 04/22/19 05:00 97.6 F 47 L 16 98/56 100 04/22/19 00:36 68 04/21/19 20:20 57 L 17 130/85 99 04/21/19 19:07 97.5 F L 68 18 159/89 99 04/21/19 18:27 97 F L 63 18 133/78 100 Intake and Output 04/22/19 04/22/19 04/22/19 06:59 14:59 22:59 Intake Total 7741 780 Balance 7741 780 Intake: Intake, IV Titration 7501 780 Amount Sodium Chloride 0.9% 1, 7501 780 000 ml @ 70 mls/hr IV . [id number] [facility] Rx#:[id number] Oral 240 Other: # Voids 2 GENERAL DESCRIPTION: Elderly male lying in bed, no distress. No tachypnea or accessory muscle of respiration use. HEENT: Shows Pallor , no scleral icterus. Oral mucous membrane is dry. No pharyngeal erythema or thrush NECK: Trachea central, no thyromegaly. LUNGS: Unlabored breathing. Clear to auscultation anteriorly. No wheeze or crackle. HEART: S1, S2, regular rate and rhythm. No loud murmur ABDOMEN: Soft, no tenderness , guarding or rigidity, no organomegaly EXTREMITIES: No edema of feet. SKIN: No rash, no masses palpable. Bilateral gluteal area did have a multiple wounds salt to wound on the right lower gluteal area did have some purulent drainage and some foul-smelling NEUROLOGICAL: The patient is awake, alert, oriented x3, mood and affect normal. Results CBC & Chem 7: 04/22/19 07:05 04/22/19 07:05 Labs: Abnormal Lab Results - Last 24 Hours (Table) 04/21/19 04/22/19 04/22/19 Range/Units 15:00 07:05 07:05 RBC 2.73 L (4.30-5.90) m/uL Hgb 8.3 L (13.0-17.5) gm/dL Hct 26.4 L (39.0-53.0) % RDW 15.6 H (11.5-15.5) % Chloride 110 H (98-107) mmol/L BUN 28 H (9-20) mg/dL Creatinine 1.89 H (0.66-1.25) mg/dL Calcium 8.0 L (8.4-10.2) mg/dL Urine Protein 1+ H (Negative) Urine Bacteria Rare H (None) /hpf Hyaline Casts 24 H (0-2) /lpf Urine Mucus Few H (None) /hpf Assessment and Plan Assessment: 1-patient with chronic nonhealing wound to bilateral gluteal area from his underlying hidradenitis suppurata for the patient recently completed a experimental trial with his evp general counsel now has been admitted to hospital with the right groin pain acute renal insufficiency in this patient was noticed to have some purulent drainage from his right gluteal wound with concern for underlying secondary infection we'll need to cover for both aerobes and anaerobes for this episodes of cellulitis and wound infection (1) Hidradenitis suppurativa Current Visit: Yes Status: Acute Code(s): L73.2 - HIDRADENITIS SUPPURATIVA SNOMED Code(s): 68034406 (2) Cellulitis, gluteal, left Current Visit: Yes Status: Acute Code(s): L03.317 - CELLULITIS OF BUTTOCK SNOMED Code(s): 18272394 Plan: 1-wound culture has been obtained both anaerobe and anaerobic to guide antibiotic therapy 2-we will empirically start the patient on Unasyn 3 g every 6 hours 3-local wound care to bilateral gluteal wound with dry Aquacel silver dressing followed by ABD to be changed daily we will follow on clinical condition and culture to further adjust medication if needed Thank you for this consultation will follow this patient along with you Time with Patient: Greater than 30
[2019-04-23] MEDS: AMPICILLIN-SULBACTAM 3 GM in SODIUM CHLORIDE 0.9% 100 ML IVPB SCH ×4 (01:32→20:17)
[2019-04-23 09:38] LABS: Basophils % (A) 0 %; Eosinophils # (A) 0.1 k/uL (0-0.7); Eosinophils % (A) 1 %; HCT 28.2 % (39.0-53.0); HGB 8.8 gm/dL (13.0-17.5); Hypochromasia Slight; Lymphocytes % (A) 12 %; MCHC 31.2 g/dL (31.0-37.0); Mean Platelet Volume 9.2; Monocytes # (A) 0.3 k/uL (0-1.0); Monocytes % (A) 4 %; Neutrophils # (A) 6.6 k/uL (1.3-7.7); Neutrophils % (A) 82 %; Platelet Count 243 k/uL (150-450); RBC 2.94 m/uL (4.30-5.90); RDW 15.7 % (11.5-15.5); WBC 8.1 k/uL (3.8-10.6)
[2019-04-23] MEDS: RIVAROXABAN 20 MG TAB PO SCH (09:38)
[2019-04-23] MEDS: FAMOTIDINE 20 MG TAB PO SCH (09:38)
[2019-04-23] MEDS: FINASTERIDE 5 MG TAB PO SCH (09:38)
[2019-04-23] MEDS: FERROUS SULFATE 325 MG TAB PO SCH ×2 (09:38→20:17)
[2019-04-23 09:55] LABS: Albumin 2.8 g/dL (3.5-5.0); Magnesium 1.7 mg/dL (1.6-2.3); Potassium 4.4 mmol/L (3.5-5.1); Total Bilirubin 0.4 mg/dL (0.2-1.3)
[2019-04-23] MEDS: HYDROcodone/APAP 5-325MG 1 EACH TAB PO PRN ×2 (10:03→21:01)
[2019-04-23] MEDS ORDERED: ACETAMINOPHEN TAB 325 MG TAB PO PRN (10:05)
--- NOTE | 2019-04-23 10:05 | P.PN ---
Subjective Progress Note Date: 04/23/19 This is a 73-year-old male patient of Dr. Mcrae. Patient presents with main complaint of right flank pain patient reports this is been going on for 2 days. Patient reports that the pain is constant. Patient denies any radiation of pain. Patient denies any fever nausea vomiting or diarrhea. Patient does have a past medical history of atrial fibrillation in which he is on Cymbalta, CVA, chronic anemia, hyperlipidemia, hypertension, pneumonia, MRSA, Hydradenitis suppurativa and when she has multiple open wounds on his body patient follows with dermatology and Dr. Martínez for this issue. CT of abdomen and pelvis completed showing arthrosclerotic vascular disease. There is probably old minimum chronic lower abdominal aortic dissection mild aneurysm lower abdominal aorta. No acute abnormality in the abdomen and pelvis nonobstructing tiny right renal calculus. Patient's creatinine also elevated at 2.12 and bun 24. At this time Dr. Mcrae will be consulted, nephrology services and vascular surgery. Patient is currently resting comfortably in bed pain is controlled with pain medication. Patient denies chest pain or shortness of breath. Patient denies nausea vomiting or diarrhea. Patient denies any burning with urination. On 04/23/2019 patient alert and oriented 3. Patient was evaluated by vascular surgery for abdominal aortic aneurysm. Per vascular surgery patient should have yearly ultrasound of the aorta for surveillance purposes no intervention is required at this time patient may be restarted on oral anticoagulation. Patient also started on Unasyn per infectious disease for chronic nonhealing wound bilateral gluteal areas from underlining hydradenitis supportive. Cultures obtained. At this time patient denies chest pain or shortness of breath. Patient denies nausea vomiting or diarrhea. Patient denies any urinary burning or frequency Objective - Vital Signs Vital signs: Vital Signs Temp 97.5 F L 04/23/19 05:00 Pulse 69 04/23/19 05:00 Resp 18 04/23/19 05:00 BP 117/67 04/23/19 05:00 Pulse Ox 100 04/23/19 05:00 Intake & Output 04/22/19 04/23/19 04/23/19 18:59 06:59 18:59 Intake Total 780 245 Output Total 300 Balance 780 -55 Intake: Intake, IV Titration 780 245 Amount Sodium Chloride 0.9% 1, 780 245 000 ml @ 70 mls/hr IV . [id number] [facility] Rx#:[id number] Output: Urine 300 Other: Voiding Method Toilet Urinal - Exam Head normocephalic Neck supple Lungs clear to auscultation bilaterally no wheezing or crackles Heart regular rate and rhythm S1-S2, no rub or gallop Abdomen is soft nontender nondistended positive bowel sounds no hepatosplenomegaly. Right flank pain to palpation Extremities no edema Neuro alert and orientated to 3 Multiple open skin wounds due to patient's chronic condition of hidradentitis supprativa - Labs CBC & Chem 7: 04/23/19 08:35 04/22/19 07:05 Labs: Abnormal Lab Results - Last 24 Hours (Table) 04/22/19 04/23/19 Range/Units 07:05 08:35 RBC 2.94 L (4.30-5.90) m/uL Hgb 8.8 L (13.0-17.5) gm/dL Hct 28.2 L (39.0-53.0) % RDW 15.7 H (11.5-15.5) % Iron 17 L (65-175) ug/dL Iron Saturation 6.30 L (15.00-50.00) Microbiology - Last 24 Hours (Table) 04/22/19 18:00 Gram Stain - Preliminary Buttock Wound Culture - Preliminary 04/22/19 18:00 Anaerobic Culture - Preliminary Buttock Assessment and Plan Assessment: 1. Right flank pain. CT of abdomen and pelvis completed showing CHRONIC vascular disease. There is probably old minimum chronic lower abdominal aortic dissection. Mild aneurysm lower abdominal aorta. No acute abnormality in the abdomen and pelvis. Nonobstructing tiny right renal calculus. Patient was evaluated by Dr. Wright per vascular surgery patient should have yearly ultrasound of the aorta for surveillance purposes no intervention is required at this time from surgical standpoint oral anticoagulation may be resumed. 2. Acute kidney injury. Creatinine elevated at 2.12. Per nephrology services likely prerenal. Normal saline maintained at 125. Creatinine improving to 1.47 3. Cellulitis of left gluteal fold. Multiple open skin wounds related to patient's chronic condition of Hidradentits supprativa. Dr. Chavezed following for infectious disease. Patient started on Unasyn. Continue local wound care to bilateral gluteal wound with dry Aquacel silver dressing of ABDs to be changed daily. Cultures obtained 4. History of MRSA in the skin wounds 5. Atrial fibrillation patient maintained on xarelto. Xarelto currently on hold until patient is evaluated by vascular surgery 6. Anemia with known iron deficiency anemia. Patient is maintained on ferrous sulfate current hemoglobin 8.6 his does appear patient's baseline 7. History of essential hypertension 8. History of CVA 9. History of BPH. DVT prophylaxis Xarelto. GI prophylaxis Pepcid I performed an examination of the patient and discussed their management with the Nurse Practitioner. I have reviewed the Nurse Practitioner's notes and agree with the documented findings and plan of care
--- NOTE | 2019-04-23 15:56 | US ---
EXAMINATION TYPE: US kidneys/renal and bladder DATE OF EXAM: 04/23/2019 COMPARISON: CT CLINICAL HISTORY: abdominal pain. Pain, abnormal CT EXAM MEASUREMENTS: Right Kidney: 11.9 x 6.6 x 5.1 cm Left Kidney: 11.6 x 5.7 x 5.5 cm Right Kidney: Cortical thinning, cyst lateral= 1.7 x 1.6 x 2.0 cm Left Kidney: Cortical thinning Bladder: wnl Bilateral Jets seen: No Cortical medullary differentiation is maintained. There is no hydronephrosis. Increased cortical echo genicity is present. Calcification seen on CT the lower pole the right kidney not seen with certainty on today's exam, cou ld possibly be vascular calcification. IMPRESSION: Suspect changes of medical renal disease
--- NOTE | 2019-04-23 17:18 | CDI ---
Documentation Clarification Form Date: 04/23/2019 5:10:16 PM From: Ashley Hines RN, CCDS Admit Date: 04/21/2019 6:37:00 PM Patient Name: Geovanny Bruno Visit Number: [id number] Discharge Date: ATTENTION: The Clinical Documentation Specialists (CDI) and [facility] Coding Staff appreciate your assistance in clarifying documentation. Please respond to the clarification below the line at the bottom and electronically sign. The CDI & [facility] Coding staff will review the response and follow-up if needed. Please note: Queries are made part of the Legal Health Record. If you have any questions, please contact the author of this message via ITS. Dr. Yanet Larkin Atrial Fibrillation is documented in the prior history of present illness, your H/P and ongoing progress notes and further clarification is needed. History/Risk Factors: Atrial Fibrillation, CVA, Hypertension, Former smoker Clinical Indicators: 73 year-old male with present with complaints of right flank pain ongoing for 2 days. Labs: HGB 8.9, HCT 31.3, BUN 24, CR 2.12 EKG/telemetry: Not noted Treatment: Monitor CBC Xarelto (hold) In your professional opinion, can you please clarify the type of Atrial Fibrillation, if known? Chronic/Permanent Paroxysmal Persistent Other, please specify Unable to determine (Last Revision: November 2017) Paroxysmal Afib MTDD
--- NOTE | 2019-04-23 18:36 | PN ---
PROGRESS NOTE DATE OF SERVICE: 04/23/2019 REASON FOR FOLLOWUP: Infected bilateral gluteal wounds. INTERVAL HISTORY: The patient is currently afebrile. The patient has been breathing comfortably. The patient's right lower quadrant abdominal pain has improved. No nausea, no vomiting. He denies any worsening pain to the bilateral gluteal wound areas. PHYSICAL EXAMINATION: Blood pressure is 130/81 with a pulse of 66, temperature 97.8. He is 100% on room air. General description is an elderly male lying in bed in no distress. RESPIRATORY SYSTEM: Unlabored breathing. Clear to auscultation anteriorly. HEART: S1, S2. Regular rate and rhythm. ABDOMEN: Soft. No tenderness. Bilateral gluteal wounds are currently dressed up. No obvious drainage on the dressing. LABS: Hemoglobin 8.8, white count 8.1. BUN of 19, creatinine 1.47. Cultures currently pending. DIAGNOSTIC IMPRESSION AND PLAN: Patient with hidradenitis suppurativa in this patient noted to have some purulent drainage from the right gluteal wound with concern for secondary cellulitis. Cultures currently pending. Patient to continue with Unasyn while waiting for the culture to finalize. Local care to continue with Aquacel Silver dressing. Keep the area off pressure. MMODL / IJN: [id number] /
[2019-04-23] MEDS: METOPROLOL SUCCINATE (ER) 100 MG TAB.ER.24H PO SCH (20:17)
[2019-04-23] MEDS: SODIUM CHLORIDE 0.9% 1,000 ML IV SCH (20:18)
--- NOTE | 2019-04-23 22:09 | PN ---
PROGRESS NOTE The patient is seen for followup for acute kidney injury. He was admitted to the hospital with a wound on the sacral area and sepsis. Renal function has been improving. Patient's creatinine is down from 2.1 on admission to 1.47 mg/dL now. He is also maintained on IV fluids. Review of previous labs show serum creatinine about 1.4-1.3 mg per dL in March of 2018. PHYSICAL EXAMINATION: On examination today, blood pressure is 117/67, heart rate 69 per minute. He is afebrile. Examination of the heart S1, S2. Examination of the lungs, bilateral breath sounds are heard. Abdomen is soft, nontender. Exam of lower extremities shows wounds in the lower extremities. There is a wound on his sacral area as well. LABS SHOW: Sodium 139, potassium 4.4, chloride 108, BUN 19, serum creatinine 1.47, hemoglobin 8.8 g/dL. ASSESSMENT: 1. Acute kidney injury, acute tubular necrosis, currently nonoliguric and improving. 2. Severe hidradenitis suppurativa with history of MRSA infections in the past. 3. A large wound in the sacral area with cellulitis of the left gluteal fold, maintained on antibiotics. 4. Atrial fibrillation with rate controlled. Maintained on Xarelto. 5. History of benign prostatic hypertrophy. 6. Chronic kidney disease stage 3B with baseline creatinine about 1.3-1.5 mg/dL. 7. Nonobstructive right renal calculus. 8. Small abdominal aortic aneurysm status post evaluation by vascular surgery. PLAN: Continue with IV fluids. Repeat labs in a.m. Follow up on ultrasound of the kidneys. MMODL / IJN: [id number] /
[2019-04-24] MEDS: AMPICILLIN-SULBACTAM 3 GM in SODIUM CHLORIDE 0.9% 100 ML IVPB SCH ×4 (01:17→18:03)
[2019-04-24 08:12] LABS: Albumin 2.7 g/dL (3.5-5.0); Calcium 8.1 mg/dL (8.4-10.2); Total Bilirubin 0.4 mg/dL (0.2-1.3); Total Protein 8.5 g/dL (6.3-8.2)
[2019-04-24 08:24] LABS: Anisocytosis Slight; Basophils # (A) 0.1 k/uL (0-0.2); Basophils % (A) 1 %; Eosinophils # (A) 0.1 k/uL (0-0.7); Eosinophils % (A) 2 %; HCT 26.8 % (39.0-53.0); HGB 8.4 gm/dL (13.0-17.5); Hypochromasia Slight; Lymphocytes # (A) 0.8 k/uL (1.0-4.8); Lymphocytes % (A) 13 %; MCH 30.1 pg (25.0-35.0); MCHC 31.5 g/dL (31.0-37.0); MCV 95.5 fL (80.0-100.0); Mean Platelet Volume 9.9; Monocytes # (A) 0.4 k/uL (0-1.0); Monocytes % (A) 6 %; Neutrophils # (A) 5.1 k/uL (1.3-7.7); Neutrophils % (A) 77 %; Platelet Count 212 k/uL (150-450); RBC 2.81 m/uL (4.30-5.90); RDW 16.2 % (11.5-15.5); WBC 6.7 k/uL (3.8-10.6)
[2019-04-24] MEDS: RIVAROXABAN 20 MG TAB PO SCH (08:33)
[2019-04-24] MEDS: FERROUS SULFATE 325 MG TAB PO SCH ×2 (08:33→20:26)
[2019-04-24] MEDS: FINASTERIDE 5 MG TAB PO SCH (08:33)
[2019-04-24] MEDS: FAMOTIDINE 20 MG TAB PO SCH (08:33)
[2019-04-24] MEDS: HYDROcodone/APAP 5-325MG 1 EACH TAB PO PRN ×2 (08:42→20:28)
--- NOTE | 2019-04-24 12:02 | P.PN ---
Subjective Progress Note Date: 04/24/19 Principal diagnosis: This is a 73-year-old male followed for acute kidney injury, secondary to prerenal from severe cellulitis of the back. His renal function is slowly improving to his baseline of 1.4. Patient has some back pain from the wound otherwise he is denying any fever chills cough shortness of breath nausea vomiting diarrhea. Appetite is fair He is known with atrial fibrillation, chronic kidney disease stage III creatinine of 1.5 at max, nonobstructive right renal calculus and small abdominal aortic aneurysm Objective - Vital Signs Vital signs: Vital Signs Temp 96.7 F L 04/24/19 05:00 Pulse 63 04/24/19 05:00 Resp 16 04/24/19 05:00 BP 120/80 04/24/19 05:00 Pulse Ox 100 04/24/19 05:00 Intake & Output 04/23/19 04/24/19 04/24/19 18:59 06:59 18:59 Intake Total 660 2220 Output Total 400 400 Balance 260 1820 Intake: Intake, IV Titration 660 200 Amount Ampicillin-Sulbactam 3 gm 100 200 In Sodium Chloride 0.9% 100 ml @ 200 mls/hr IVPB Q6H [facility] Rx#:[id number] Sodium Chloride 0.9% 1, 560 000 ml @ 70 mls/hr IV . [id number] [facility] Rx#:[id number] Oral 2020 Output: Urine 400 400 Other: Voiding Method Toilet Toilet Urinal Urinal # Voids 2 # Bowel Movements 1 On examination is awake alert oriented comfortable. HEENT exam no JVP neck is supple no facial asymmetry Lungs are clear to auscultation with good air entry bilaterally Heart sounds are unremarkable for any murmur rub gallop Abdomen soft nontender no masses felt Extremity exam was no edema Neurologically awake alert oriented. No focal motor deficit - Labs CBC & Chem 7: 04/24/19 06:30 04/24/19 06:30 Labs: Abnormal Lab Results - Last 24 Hours (Table) 04/24/19 04/24/19 Range/Units 06:30 06:30 RBC 2.81 L (4.30-5.90) m/uL Hgb 8.4 L (13.0-17.5) gm/dL Hct 26.8 L (39.0-53.0) % RDW 16.2 H (11.5-15.5) % Lymphocytes # 0.8 L (1.0-4.8) k/uL Chloride 109 H (98-107) mmol/L Creatinine 1.42 H (0.66-1.25) mg/dL Calcium 8.1 L (8.4-10.2) mg/dL AST 16 L (17-59) U/L ALT 8 L (21-72) U/L Total Protein 8.5 H (6.3-8.2) g/dL Albumin 2.7 L (3.5-5.0) g/dL Microbiology - Last 24 Hours (Table) 04/22/19 18:00 Gram Stain - Preliminary Buttock Wound Culture - Preliminary Gram Neg Bacilli Assessment and Plan Assessment: Impression 1. Acute kidney injury from septic syndrome improving creatinine is down 2 chronic kidney disease stage IIIB with baseline creatinine 1.5 3. Nonobstructive right renal calculus 4. Large sacral wound with cellulitis on antibiotics 5. Small abdominal aortic aneurysm. Recommendation 1. Maintain current medications 2. Maintain IV fluid to 70 and an hour 3. Monitor labs every 2 or 3 days
[2019-04-24] MEDS: SODIUM CHLORIDE 0.9% 1,000 ML IV SCH (14:16)
--- NOTE | 2019-04-24 16:29 | P.PN ---
Subjective Progress Note Date: 04/24/19 This is a 73-year-old male patient of Dr. Mcrae. Patient presents with main complaint of right flank pain patient reports this is been going on for 2 days. Patient reports that the pain is constant. Patient denies any radiation of pain. Patient denies any fever nausea vomiting or diarrhea. Patient does have a past medical history of atrial fibrillation in which he is on Cymbalta, CVA, chronic anemia, hyperlipidemia, hypertension, pneumonia, MRSA, Hydradenitis suppurativa and when she has multiple open wounds on his body patient follows with dermatology and Dr. Martínez for this issue. CT of abdomen and pelvis completed showing arthrosclerotic vascular disease. There is probably old minimum chronic lower abdominal aortic dissection mild aneurysm lower abdominal aorta. No acute abnormality in the abdomen and pelvis nonobstructing tiny right renal calculus. Patient's creatinine also elevated at 2.12 and bun 24. At this time Dr. Mcrae will be consulted, nephrology services and vascular surgery. Patient is currently resting comfortably in bed pain is controlled with pain medication. Patient denies chest pain or shortness of breath. Patient denies nausea vomiting or diarrhea. Patient denies any burning with urination. On 04/23/2019 patient alert and oriented 3. Patient was evaluated by vascular surgery for abdominal aortic aneurysm. Per vascular surgery patient should have yearly ultrasound of the aorta for surveillance purposes no intervention is required at this time patient may be restarted on oral anticoagulation. Patient also started on Unasyn per infectious disease for chronic nonhealing wound bilateral gluteal areas from underlining hydradenitis supportive. Cultures obtained. At this time patient denies chest pain or shortness of breath. Patient denies nausea vomiting or diarrhea. Patient denies any urinary burning or frequency On 04/24/2019 patient was seen and examined on the medical floor he is alert and oriented 3 in no apparent distress he denies any complaints at this time there is no fever or chills no headache or dizziness no chest pain no shortness of breath no cough no nausea or vomiting no abdominal pain no diarrhea and no urinary symptoms Objective - Vital Signs Vital signs: Vital Signs Temp 98.9 F 04/24/19 12:55 Pulse 92 04/24/19 12:55 Resp 16 04/24/19 12:55 BP 128/79 04/24/19 12:55 Pulse Ox 98 04/24/19 12:55 Intake & Output 04/23/19 04/24/19 04/24/19 18:59 06:59 18:59 Intake Total 660 2220 1620 Output Total 400 400 Balance 260 1820 1620 Intake: Intake, IV Titration 660 200 900 Amount Ampicillin-Sulbactam 3 gm 100 200 200 In Sodium Chloride 0.9% 100 ml @ 200 mls/hr IVPB Q6H [facility] Rx#:[id number] Sodium Chloride 0.9% 1, 560 700 000 ml @ 70 mls/hr IV . [id number] [facility] Rx#:[id number] Oral 2020 720 Output: Urine 400 400 Other: Voiding Method Toilet Toilet Toilet Urinal Urinal Urinal # Voids 2 4 # Bowel Movements 1 - Exam Head normocephalic Neck supple Lungs clear to auscultation bilaterally no wheezing or crackles Heart regular rate and rhythm S1-S2, no rub or gallop Abdomen is soft nontender nondistended positive bowel sounds no hepatosplenomegaly. Right flank pain to palpation Extremities no edema Neuro alert and orientated to 3 Multiple open skin wounds due to patient's chronic condition of hidradentitis supprativa - Labs CBC & Chem 7: 04/24/19 06:30 04/24/19 06:30 Labs: Abnormal Lab Results - Last 24 Hours (Table) 04/24/19 04/24/19 Range/Units 06:30 06:30 RBC 2.81 L (4.30-5.90) m/uL Hgb 8.4 L (13.0-17.5) gm/dL Hct 26.8 L (39.0-53.0) % RDW 16.2 H (11.5-15.5) % Lymphocytes # 0.8 L (1.0-4.8) k/uL Chloride 109 H (98-107) mmol/L Creatinine 1.42 H (0.66-1.25) mg/dL Calcium 8.1 L (8.4-10.2) mg/dL AST 16 L (17-59) U/L ALT 8 L (21-72) U/L Total Protein 8.5 H (6.3-8.2) g/dL Albumin 2.7 L (3.5-5.0) g/dL Microbiology - Last 24 Hours (Table) 04/22/19 18:00 Gram Stain - Preliminary Buttock Wound Culture - Preliminary Gram Neg Bacilli Assessment and Plan Plan: 1. Right flank pain. CT of abdomen and pelvis completed showing CHRONIC va scular disease. There is probably old minimum chronic lower abdominal aortic dissection. Mild aneurysm lower abdominal aorta. No acute abnormality in the abdomen and pelvis. Nonobstructing tiny right renal calculus. Patient was evaluated by Dr. Wright per vascular surgery patient should have yearly ultrasound of the aorta for surveillance purposes no intervention is required at this time from surgical standpoint oral anticoagulation may be resumed. 2. Acute kidney injury. Creatinine elevated at 2.12. Per nephrology services likely prerenal. Normal saline maintained at 125. Creatinine improving to 1.47 3. Cellulitis of left gluteal fold. Multiple open skin wounds related to sen mathis's chronic condition of Hidradentits supprativa. Dr. Chavezed following for infectious disease. Patient started on Unasyn. Continue local wound care to bilateral gluteal wound with dry Aquacel silver dressing of ABDs to be changed daily. Cultures obtained 4. History of MRSA in the skin wounds 5. Atrial fibrillation patient maintained on xarelto. Xarelto currently on hold until patient is evaluated by vascular surgery 6. Anemia with known iron deficiency anemia. Patient is maintained on ferrous sulfate current hemoglobin 8.6 his does appear patient's baseline 7. History of essential hypertension 8. History of CVA 9. History of BPH. DVT prophylaxis Xarelto. GI prophylaxis Pepcid
[2019-04-24] MEDS: METOPROLOL SUCCINATE (ER) 100 MG TAB.ER.24H PO SCH (20:27)
[2019-04-25] MEDS: AMPICILLIN-SULBACTAM 3 GM in SODIUM CHLORIDE 0.9% 100 ML IVPB SCH ×4 (01:10→18:56)
[2019-04-25] MEDS: SODIUM CHLORIDE 0.9% 1,000 ML IV SCH ×2 (04:49→17:43)
[2019-04-25 07:41] LABS: Albumin 2.6 g/dL (3.5-5.0); Calcium 8.2 mg/dL (8.4-10.2); Potassium 4.8 mmol/L (3.5-5.1); Total Bilirubin 0.4 mg/dL (0.2-1.3); Total Protein 8.4 g/dL (6.3-8.2)
[2019-04-25 08:07] LABS: Anisocytosis Slight; Basophils # (A) 0.1 k/uL (0-0.2); Basophils % (A) 1 %; Eosinophils # (A) 0.2 k/uL (0-0.7); Eosinophils % (A) 3 %; HCT 26.7 % (39.0-53.0); HGB 8.5 gm/dL (13.0-17.5); Hypochromasia Moderate; Lymphocytes # (A) 0.9 k/uL (1.0-4.8); Lymphocytes % (A) 15 %; MCH 30.5 pg (25.0-35.0); MCHC 31.9 g/dL (31.0-37.0); MCV 95.6 fL (80.0-100.0); Mean Platelet Volume 9.7; Monocytes # (A) 0.3 k/uL (0-1.0); Monocytes % (A) 5 %; Neutrophils # (A) 4.5 k/uL (1.3-7.7); Neutrophils % (A) 75 %; Platelet Count 209 k/uL (150-450); RBC 2.79 m/uL (4.30-5.90); RDW 16.2 % (11.5-15.5)
[2019-04-25] MEDS: RIVAROXABAN 20 MG TAB PO SCH (08:36)
[2019-04-25] MEDS: FAMOTIDINE 20 MG TAB PO SCH (08:36)
[2019-04-25] MEDS: FINASTERIDE 5 MG TAB PO SCH (08:36)
[2019-04-25] MEDS: FERROUS SULFATE 325 MG TAB PO SCH ×2 (08:36→20:15)
--- NOTE | 2019-04-25 11:12 | P.PN ---
Subjective Progress Note Date: 04/25/19 This is a 73-year-old male patient of Dr. Mcrae. Patient presents with main complaint of right flank pain patient reports this is been going on for 2 days. Patient reports that the pain is constant. Patient denies any radiation of pain. Patient denies any fever nausea vomiting or diarrhea. Patient does have a past medical history of atrial fibrillation in which he is on Cymbalta, CVA, chronic anemia, hyperlipidemia, hypertension, pneumonia, MRSA, Hydradenitis suppurativa and when she has multiple open wounds on his body patient follows with dermatology and Dr. Martínez for this issue. CT of abdomen and pelvis completed showing arthrosclerotic vascular disease. There is probably old minimum chronic lower abdominal aortic dissection mild aneurysm lower abdominal aorta. No acute abnormality in the abdomen and pelvis nonobstructing tiny right renal calculus. Patient's creatinine also elevated at 2.12 and bun 24. At this time Dr. Mcrae will be consulted, nephrology services and vascular surgery. Patient is currently resting comfortably in bed pain is controlled with pain medication. Patient denies chest pain or shortness of breath. Patient denies nausea vomiting or diarrhea. Patient denies any burning with urination. On 04/23/2019 patient alert and oriented 3. Patient was evaluated by vascular surgery for abdominal aortic aneurysm. Per vascular surgery patient should have yearly ultrasound of the aorta for surveillance purposes no intervention is required at this time patient may be restarted on oral anticoagulation. Patient also started on Unasyn per infectious disease for chronic nonhealing wound bilateral gluteal areas from underlining hydradenitis supportive. Cultures obtained. At this time patient denies chest pain or shortness of breath. Patient denies nausea vomiting or diarrhea. Patient denies any urinary burning or frequency On 04/24/2019 patient was seen and examined on the medical floor he is alert and oriented 3 in no apparent distress he denies any complaints at this time there is no fever or chills no headache or dizziness no chest pain no shortness of breath no cough no nausea or vomiting no abdominal pain no diarrhea and no urinary symptoms On 04/25/2019 patient was seen and examined on the medical floor, he is feeling well and denies any symptoms at this time there is no fever or chills no headache or dizziness no chest pain no shortness of breath no cough no nausea or vomiting no abdominal pain no diarrhea no burning with urination no frequency or urgency no hematuria Objective - Vital Signs Vital signs: Vital Signs Temp 97.7 F 04/25/19 05:00 Pulse 67 04/25/19 05:00 Resp 16 04/25/19 05:00 BP 130/83 04/25/19 05:00 Pulse Ox 98 04/25/19 05:00 Intake & Output 04/24/19 04/25/19 04/25/19 18:59 06:59 18:59 Intake Total 2100 2440 Output Total 400 1000 Balance 1700 1440 Intake: Intake, IV Titration 900 660 Amount Ampicillin-Sulbactam 3 gm 200 100 In Sodium Chloride 0.9% 100 ml @ 200 mls/hr IVPB Q6H [facility] Rx#:[id number] Sodium Chloride 0.9% 1, 700 560 000 ml @ 70 mls/hr IV . [id number] [facility] Rx#:[id number] Oral 1200 1780 Output: Urine 400 1000 Other: Voiding Method Toilet Toilet Urinal Urinal # Voids 4 2 - Exam Head normocephalic Neck supple Lungs clear to auscultation bilaterally no wheezing or crackles Heart regular rate and rhythm S1-S2, no rub or gallop Abdomen is soft nontender nondistended positive bowel sounds no hepatosplenomegaly. Right flank pain to palpation Extremities no edema Neuro alert and orientated to 3 Multiple open skin wounds due to patient's chronic condition of hidradentitis supprativa - Labs CBC & Chem 7: 04/25/19 06:26 04/25/19 06:26 Labs: Abnormal Lab Results - Last 24 Hours (Table) 04/25/19 04/25/19 Range/Units 06:26 06:26 RBC 2.79 L (4.30-5.90) m/uL Hgb 8.5 L (13.0-17.5) gm/dL Hct 26.7 L (39.0-53.0) % RDW 16.2 H (11.5-15.5) % Lymphocytes # 0.9 L (1.0-4.8) k/uL Chloride 109 H (98-107) mmol/L Creatinine 1.55 H (0.66-1.25) mg/dL Calcium 8.2 L (8.4-10.2) mg/dL AST 15 L (17-59) U/L ALT 6 L (21-72) U/L Total Protein 8.4 H (6.3-8.2) g/dL Albumin 2.6 L (3.5-5.0) g/dL Microbiology - Last 24 Hours (Table) 04/22/19 18:00 Gram Stain - Preliminary Buttock Wound Culture - Preliminary Citrobacter freundii Presumptive Staph aureus Assessment and Plan Plan: 1. Right flank pain. CT of abdomen and pelvis completed showing CHRONIC vascular disease. There is probably old minimum chronic lower abdominal aortic dissection. Mild aneurysm lower abdominal aorta. No acute abnormality in the abdomen and pelvis. Nonobstructing tiny right renal calculus. Patient was evaluated by Dr. Wright per vascular surgery patient should have yearly ultrasound of the aorta for surveillance purposes no intervention is required at this time from surgical standpoint oral anticoagulation may be resumed. 2. Acute kidney injury. Creatinine elevated at 2.12. Per nephrology services likely prerenal. Normal saline maintained at 125. Creatinine improving to 1.47 3. Cellulitis of left gluteal fold. Multiple open skin wounds related to patient's chronic condition of Hidradentits supprativa. Dr. Chavezed following for infectious disease. Patient started on Unasyn. Continue local wound care to bilateral gluteal wound with dry Aquacel silver dressing of ABDs to be changed daily. Cultures obtained 4. History of MRSA in the skin wounds 5. Atrial fibrillation patient maintained on xarelto. Xarelto currently on hold until patient is evaluated by vascular surgery 6. Anemia with known iron deficiency anemia. Patient is maintained on ferrous sulfate current hemoglobin 8.6 his does appear patient's baseline 7. History of essential hypertension 8. History of CVA 9. History of BPH. DVT prophylaxis Xarelto. GI prophylaxis Pepcid
[2019-04-25] MEDS: MELATONIN 3 MG TABLET PO SCH (20:15)
[2019-04-25] MEDS: METOPROLOL SUCCINATE (ER) 100 MG TAB.ER.24H PO SCH (20:20)
--- NOTE | 2019-04-26 00:17 | PN ---
PROGRESS NOTE DATE OF SERVICE: 04/25/2019. REASON FOR FOLLOWUP: Bilateral gluteal wound with secondary cellulitis. INTERVAL HISTORY: The patient is currently afebrile. Patient has been breathing comfortably. Denies any chest pain or cough. No abdominal pain or worsening pain to the gluteal wound area. PHYSICAL EXAMINATION: Blood pressure 136/62 with a pulse of 54, temperature 98.1. He is 97% on room air. General description is an elderly male lying in bed in no distress. Respiratory system: Unlabored breathing. Clear to auscultation anteriorly. Heart S1, S2. Regular rate and rhythm. ABDOMEN: Soft, no tenderness. Wound is currently dressed up. No obvious drainage on the dressing. LABS: Creatinine is 1.55, slightly elevated than yesterday with hemoglobin 8.5, white count 6.0. Wound culture has been finalized with Citrobacter MRSA and anaerobic gram- negative bacilli. DIAGNOSTIC IMPRESSION AND PLAN: Patient with hidradenitis suppurative with multiple wounds, especially bilateral gluteal area. However, the wound culture is also showing MRSA. We will add daptomycin 4 mg/kg as the patient high risk of nephrotoxicity from vancomycin. Continue Unasyn. Local wound care with Aquacel silver dressing. MMODL / IJN: [id number] /
[2019-04-26] MEDS: AMPICILLIN-SULBACTAM 3 GM in SODIUM CHLORIDE 0.9% 100 ML IVPB SCH ×4 (01:04→20:10)
[2019-04-26 08:23] LABS: Albumin 2.5 g/dL (3.5-5.0); Calcium 7.9 mg/dL (8.4-10.2); Potassium 4.4 mmol/L (3.5-5.1); Total Bilirubin 0.4 mg/dL (0.2-1.3); Total Protein 8.3 g/dL (6.3-8.2)
[2019-04-26 08:25] LABS: Anisocytosis Slight; Basophils % (A) 0 %; Eosinophils # (A) 0.1 k/uL (0-0.7); Eosinophils % (A) 2 %; HGB 8.3 gm/dL (13.0-17.5); Hypochromasia Moderate; Lymphocytes # (A) 0.8 k/uL (1.0-4.8); Lymphocytes % (A) 15 %; MCH 30.5 pg (25.0-35.0); MCHC 31.9 g/dL (31.0-37.0); MCV 95.7 fL (80.0-100.0); Mean Platelet Volume 9.6; Monocytes # (A) 0.3 k/uL (0-1.0); Monocytes % (A) 6 %; Neutrophils # (A) 3.8 k/uL (1.3-7.7); Neutrophils % (A) 74 %; Platelet Count 184 k/uL (150-450); RBC 2.72 m/uL (4.30-5.90); RDW 16.7 % (11.5-15.5); WBC 5.2 k/uL (3.8-10.6)
[2019-04-26] MEDS: SODIUM CHLORIDE 0.9% 1,000 ML IV SCH ×2 (09:30→23:18)
[2019-04-26] MEDS: FINASTERIDE 5 MG TAB PO SCH (09:32)
[2019-04-26] MEDS: FERROUS SULFATE 325 MG TAB PO SCH ×2 (09:32→20:37)
[2019-04-26] MEDS: RIVAROXABAN 20 MG TAB PO SCH (09:32)
[2019-04-26] MEDS: FAMOTIDINE 20 MG TAB PO SCH (09:32)
--- NOTE | 2019-04-26 10:06 | P.PN ---
Subjective Progress Note Date: 04/26/19 This is a 73-year-old male patient of Dr. Mcrae. Patient presents with main complaint of right flank pain patient reports this is been going on for 2 days. Patient reports that the pain is constant. Patient denies any radiation of pain. Patient denies any fever nausea vomiting or diarrhea. Patient does have a past medical history of atrial fibrillation in which he is on Cymbalta, CVA, chronic anemia, hyperlipidemia, hypertension, pneumonia, MRSA, Hydradenitis suppurativa and when she has multiple open wounds on his body patient follows with dermatology and Dr. Martínez for this issue. CT of abdomen and pelvis completed showing arthrosclerotic vascular disease. There is probably old minimum chronic lower abdominal aortic dissection mild aneurysm lower abdominal aorta. No acute abnormality in the abdomen and pelvis nonobstructing tiny right renal calculus. Patient's creatinine also elevated at 2.12 and bun 24. At this time Dr. Mcrae will be consulted, nephrology services and vascular surgery. Patient is currently resting comfortably in bed pain is controlled with pain medication. Patient denies chest pain or shortness of breath. Patient denies nausea vomiting or diarrhea. Patient denies any burning with urination. On 04/23/2019 patient alert and oriented 3. Patient was evaluated by vascular surgery for abdominal aortic aneurysm. Per vascular surgery patient should have yearly ultrasound of the aorta for surveillance purposes no intervention is required at this time patient may be restarted on oral anticoagulation. Patient also started on Unasyn per infectious disease for chronic nonhealing wound bilateral gluteal areas from underlining hydradenitis supportive. Cultures obtained. At this time patient denies chest pain or shortness of breath. Patient denies nausea vomiting or diarrhea. Patient denies any urinary burning or frequency On 04/24/2019 patient was seen and examined on the medical floor he is alert and oriented 3 in no apparent distress he denies any complaints at this time there is no fever or chills no headache or dizziness no chest pain no shortness of breath no cough no nausea or vomiting no abdominal pain no diarrhea and no urinary symptoms On 04/25/2019 patient was seen and examined on the medical floor, he is feeling well and denies any symptoms at this time there is no fever or chills no headache or dizziness no chest pain no shortness of breath no cough no nausea or vomiting no abdominal pain no diarrhea no burning with urination no frequency or urgency no hematuria On 04/26/2019 patient is alert and oriented 3. Wound culture positive for MRSA. Daptomycin added per infectious disease. She reports improvement with a bdominal and back pain. Patient denies chest pain or shortness breath. Patient denies nausea vomiting or diarrhea. Patient denies any urinary burning or frequency Objective - Vital Signs Vital signs: Vital Signs Temp 97.6 F 04/26/19 05:00 Pulse 60 04/26/19 05:00 Resp 16 04/26/19 05:00 BP 151/77 04/26/19 05:00 Pulse Ox 98 04/26/19 05:00 Intake & Output 04/25/19 04/26/19 04/26/19 18:59 06:59 18:59 Intake Total 2040 1540 Output Total 400 800 Balance 1640 740 Intake: Intake, IV Titration 940 Amount Ampicillin-Sulbactam 3 gm 100 In Sodium Chloride 0.9% 100 ml @ 200 mls/hr IVPB Q6H [facility] Rx#:[id number] Sodium Chloride 0.9% 1, 840 000 ml @ 70 mls/hr IV . [id number] [facility] Rx#:[id number] Oral 1100 1540 Output: Urine 400 800 Other: Voiding Method Toilet Toilet Urinal Urinal # Voids 4 - Exam Head normocephalic Neck supple Lungs clear to auscultation bilaterally no wheezing or crackles Heart regular rate and rhythm S1-S2, no rub or gallop Abdomen is soft nontender nondistended positive bowel sounds no hepatosplenomegaly. Right flank pain to palpation Extremities no edema Neuro alert and orientated to 3 Multiple open skin wounds due to patient's chronic condition of hidradentitis supprativa - Labs CBC & Chem 7: 04/26/19 06:47 04/26/19 06:47 Labs: Abnormal Lab Results - Last 24 Hours (Table) 04/26/19 04/26/19 Range/Units 06:47 06:47 RBC 2.72 L (4.30-5.90) m/uL Hgb 8.3 L (13.0-17.5) gm/dL Hct 26.0 L (39.0-53.0) % RDW 16.7 H (11.5-15.5) % Chloride 109 H (98-107) mmol/L Creatinine 1.46 H (0.66-1.25) mg/dL Calcium 7.9 L (8.4-10.2) mg/dL AST 15 L (17-59) U/L ALT 9 L (21-72) U/L Alkaline Phosphatase 128 H (38-126) U/L Total Protein 8.3 H (6.3-8.2) g/dL Albumin 2.5 L (3.5-5.0) g/dL Microbiology - Last 24 Hours (Table) 04/22/19 18:00 Gram Stain - Final Buttock Wound Culture - Final Citrobacter freundii Methicillin resist S. aureus 04/22/19 18:00 Anaerobic Culture - Final Buttock Anaerobic Gm Negative Bacilli Anaerobic Gm Positive Bacill Anaerobic Gm Negative Bacilli#2 Assessment and Plan Assessment: 1. Right flank pain. CT of abdomen and pelvis completed showing CHRONIC vascular disease. There is probably old minimum chronic lower abdominal aortic dissection. Mild aneurysm lower abdominal aorta. No acute abnormality in the abdomen and pelvis. Nonobstructing tiny right renal calculus. Patient was evaluated by Dr. Wright per vascular surgery patient should have yearly ultrasound of the aorta for surveillance purposes no intervention is required at this time from surgical standpoint oral anticoagulation may be resumed. Ultrasound of kidneys renal and bladder completed showing suspect changes of medical renal disease. pain has improved 2. Acute kidney injury. Creatinine elevated at 2.12. Per nephrology services likely prerenal. Normal saline maintained at 125. Creatinine improving to 1.47 3. Cellulitis of left gluteal fold positive for MRSA. Multiple open skin wounds related to patient's chronic condition of Hidradentits supprativa. Dr. Mcrae following for infectious disease. Patient started on Unasyn. Continue local wound care to bilateral gluteal wound with dry Aquacel silver dressing of ABDs to be changed daily. Per infectious disease wound culture showing MRSA. Daptomycin added. Patient maintained on Unasyn. 4. History of MRSA in the skin wounds 5. Atrial fibrillation patient maintained on xarelto. Xarelto currently on hold until patient is evaluated by vascular surgery 6. Anemia with known iron deficiency anemia. Patient is maintained on ferrous sulfate current hemoglobin 8.6 his does appear patient's baseline 7. History of essential hypertension 8. History of CVA 9. History of BPH. DVT prophylaxis Xarelto. GI prophylaxis Pepcid PT OT and psychosocial rehabilitation counselor consulted I performed an examination of the patient and discussed their management with the Nurse Practitioner. I have reviewed the Nurse Practitioner's notes and agree with the documented findings and plan of care Time with Patient: Greater than 30
[2019-04-26 11:17] LABS: Poikilocytosis (M) Present; Rouleaux Present
--- NOTE | 2019-04-26 18:55 | PN ---
PROGRESS NOTE DATE OF SERVICE: 04/26/2019. REASON FOR FOLLOWUP: Bilateral gluteal infected wound with cellulitis. INTERVAL HISTORY: The patient is currently afebrile. Patient has been breathing comfortably. Patient denies having any chest pain. No cough. No nausea, vomiting. No abdominal pain. No pain to the bilateral gluteal wound area. PHYSICAL EXAMINATION: Blood pressure 158/85 with a pulse of 61, temperature is 97.8. He is 99% on room air. General description is an elderly male lying in bed in no distress. Respiratory system: Unlabored breathing. Clear to auscultation anteriorly. Heart S1, S2. Regular rate and rhythm. Abdomen soft, no tenderness. Bilateral gluteal wound swelling, redness has improved. No further purulent drainage was noticed today. LABS: Hemoglobin 8.8, white count 5.2 with a BUN of 13, creatinine 1.46. DIAGNOSTIC IMPRESSION AND PLAN: Patient with hidradenitis suppurativa. The patient did have evidence of a multiple infected wound to the bilateral gluteal area with secondary cellulitis. Currently covered with Unasyn and daptomycin. Hopefully transition to oral antibiotic in a day or two depending on clinical response. Local care to continue with Aquacel dressing applied dry and continue supportive care. MMODL / IJN: [id number] /
[2019-04-26] MEDS: METOPROLOL SUCCINATE (ER) 100 MG TAB.ER.24H PO SCH (20:09)
[2019-04-26] MEDS: MELATONIN 3 MG TABLET PO SCH (20:37)
[2019-04-27] MEDS: AMPICILLIN-SULBACTAM 3 GM in SODIUM CHLORIDE 0.9% 100 ML IVPB SCH ×3 (01:25→11:21)
[2019-04-27 05:02] VITALS: TEMP 97.8
[2019-04-27 08:13] LABS: Basophils % (A) 1 %; Eosinophils # (A) 0.2 k/uL (0-0.7); Eosinophils % (A) 3 %; HCT 27.4 % (39.0-53.0); HGB 8.4 gm/dL (13.0-17.5); Hypochromasia Marked; Lymphocytes # (A) 0.8 k/uL (1.0-4.8); Lymphocytes % (A) 14 %; MCH 29.7 pg (25.0-35.0); MCHC 30.9 g/dL (31.0-37.0); MCV 96.2 fL (80.0-100.0); Monocytes # (A) 0.3 k/uL (0-1.0); Monocytes % (A) 5 %; Neutrophils # (A) 4.4 k/uL (1.3-7.7); Neutrophils % (A) 75 %; Platelet Count 197 k/uL (150-450); RBC 2.84 m/uL (4.30-5.90); RDW 15.8 % (11.5-15.5); WBC 5.8 k/uL (3.8-10.6)
[2019-04-27 08:36] LABS: Albumin 2.6 g/dL (3.5-5.0); Potassium 4.1 mmol/L (3.5-5.1); Total Bilirubin 0.5 mg/dL (0.2-1.3); Total Protein 8.6 g/dL (6.3-8.2)
[2019-04-27] MEDS: RIVAROXABAN 20 MG TAB PO SCH (08:48)
[2019-04-27] MEDS: FINASTERIDE 5 MG TAB PO SCH (08:48)
[2019-04-27] MEDS: FERROUS SULFATE 325 MG TAB PO SCH (08:48)
[2019-04-27] MEDS: FAMOTIDINE 20 MG TAB PO SCH (08:48)
--- NOTE | 2019-04-27 11:19 | P.PN ---
Subjective Progress Note Date: 04/27/19 This is a 73-year-old male patient of Dr. Mcrae. Patient presents with main complaint of right flank pain patient reports this is been going on for 2 days. Patient reports that the pain is constant. Patient denies any radiation of pain. Patient denies any fever nausea vomiting or diarrhea. Patient does have a past medical history of atrial fibrillation in which he is on Cymbalta, CVA, chronic anemia, hyperlipidemia, hypertension, pneumonia, MRSA, Hydradenitis suppurativa and when she has multiple open wounds on his body patient follows with dermatology and Dr. Martínez for this issue. CT of abdomen and pelvis completed showing arthrosclerotic vascular disease. There is probably old minimum chronic lower abdominal aortic dissection mild aneurysm lower abdominal aorta. No acute abnormality in the abdomen and pelvis nonobstructing tiny right renal calculus. Patient's creatinine also elevated at 2.12 and bun 24. At this time Dr. Mcrae will be consulted, nephrology services and vascular surgery. Patient is currently resting comfortably in bed pain is controlled with pain medication. Patient denies chest pain or shortness of breath. Patient denies nausea vomiting or diarrhea. Patient denies any burning with urination. On 04/23/2019 patient alert and oriented 3. Patient was evaluated by vascular surgery for abdominal aortic aneurysm. Per vascular surgery patient should have yearly ultrasound of the aorta for surveillance purposes no intervention is required at this time patient may be restarted on oral anticoagulation. Patient also started on Unasyn per infectious disease for chronic nonhealing wound bilateral gluteal areas from underlining hydradenitis supportive. Cultures obtained. At this time patient denies chest pain or shortness of breath. Patient denies nausea vomiting or diarrhea. Patient denies any urinary burning or frequency On 04/24/2019 patient was seen and examined on the medical floor he is alert and oriented 3 in no apparent distress he denies any complaints at this time there is no fever or chills no headache or dizziness no chest pain no shortness of breath no cough no nausea or vomiting no abdominal pain no diarrhea and no urinary symptoms On 04/25/2019 patient was seen and examined on the medical floor, he is feeling well and denies any symptoms at this time there is no fever or chills no headache or dizziness no chest pain no shortness of breath no cough no nausea or vomiting no abdominal pain no diarrhea no burning with urination no frequency or urgency no hematuria On 04/26/2019 patient is alert and oriented 3. Wound culture positive for MRSA. Daptomycin added per infectious disease. She reports improvement with a bdominal and back pain. Patient denies chest pain or shortness breath. Patient denies nausea vomiting or diarrhea. Patient denies any urinary burning or frequency On 04/27/2019 patient's alert and oriented 3. Patient remains on daptomycin. Per infectious disease patient to receive IV antibiotics for a day or 2 and then transition to oral antibiotics for discharge. Continue local wound care with Aquacel dressing. At this time patient denies chest pain or shortness of breath. Patient denies nausea vomiting or diarrhea. Patient denies any urinary burning or frequency Objective - Vital Signs Vital signs: Vital Signs Temp 97.8 F 04/27/19 05:00 Pulse 50 L 04/27/19 05:00 Resp 18 04/27/19 05:00 BP 156/74 04/27/19 05:00 Pulse Ox 99 04/27/19 05:00 Intake & Output 04/26/19 04/27/19 04/27/19 18:59 06:59 18:59 Intake Total 1240 880 Output Total 700 400 Balance 540 480 Intake: Intake, IV Titration 660 280 Amount Ampicillin-Sulbactam 3 gm 100 In Sodium Chloride 0.9% 100 ml @ 200 mls/hr IVPB Q6H [facility]UCENA Rx#:[id number] Sodium Chloride 0.9% 1, 560 280 000 ml @ 70 mls/hr IV . [id number] [facility]UCENA Rx#:[id number] Oral 580 600 Output: Urine 700 400 Other: Voiding Method Toilet Toilet Toilet Urinal Urinal Urinal # Voids 2 2 - Exam Head normocephalic Neck supple Lungs clear to auscultation bilaterally no wheezing or crackles Heart regular rate and rhythm S1-S2, no rub or gallop Abdomen is soft nontender nondistended positive bowel sounds no hepatosplenomegaly. Right flank pain to palpation Extremities no edema Neuro alert and orientated to 3 Multiple open skin wounds due to patient's chronic condition of hidradentitis supprativa - Labs CBC & Chem 7: 04/27/19 07:29 04/27/19 07:29 Labs: Abnormal Lab Results - Last 24 Hours (Table) 0904/27/19 04/27/19 Range/Units 06:47 07:29 07:29 RBC 2.72 L 2.84 L (4.30-5.90) m/uL Hgb 8.3 L 8.4 L (13.0-17.5) gm/dL Hct 26.0 L 27.4 L (39.0-53.0) % MCHC 30.9 L (31.0-37.0) g/dL RDW 16.7 H 15.8 H (11.5-15.5) % Lymphocytes # 0.8 L 0.8 L (1.0-4.8) k/uL Chloride 109 H (98-107) mmol/L Creatinine 1.41 H (0.66-1.25) mg/dL Calcium 8.0 L (8.4-10.2) mg/dL AST 15 L (17-59) U/L ALT 10 L (21-72) U/L Alkaline Phosphatase 134 H (38-126) U/L Total Protein 8.6 H (6.3-8.2) g/dL Albumin 2.6 L (3.5-5.0) g/dL Microbiology - Last 24 Hours (Table) 04/22/19 18:00 Gram Stain - Final Buttock Wound Culture - Final Citrobacter freundii Methicillin resist S. aureus Assessment and Plan Assessment: 1. Right flank pain. CT of abdomen and pelvis completed showing CHRONIC vascular disease. There is probably old minimum chronic lower abdominal aortic dissection. Mild aneurysm lower abdominal aorta. No acute abnormality in the abdomen and pelvis. Nonobstructing tiny right renal calculus. Patient was evaluated by Dr. Wright per vascular surgery patient should have yearly ultrasound of the aorta for surveillance purposes no intervention is required at this time from surgical standpoint oral anticoagulation may be resumed. Ultrasound of kidneys renal and bladder completed showing suspect changes of medical renal disease. pain has improved 2. Acute kidney injury. Creatinine elevated at 2.12. Per nephrology services likely prerenal. Normal saline maintained at 125. Creatinine improving to 1.47 3. Cellulitis of left gluteal fold positive for MRSA. Multiple open skin wounds related to patient's chronic condition of Hidradentits supprativa. Dr. Chavezed following for infectious disease. Patient started on Unasyn. Continue local wound care to bilateral gluteal wound with dry Aquacel silver dressing of ABDs to be changed daily. Per infectious disease wound culture showing MRSA. Daptomycin added. Per infectious disease patient will be transitioned to oral antibiotics upon discharge 4. History of MRSA in the skin wounds 5. Atrial fibrillation patient maintained on xarelto. Xarelto currently on hold until patient is evaluated by vascular surgery 6. Anemia with known iron deficiency anemia. Patient is maintained on ferrous sulfate current hemoglobin 8.6 his does appear patient's baseline. IV iron has been ordered per nephrology services 7. History of essential hypertension 8. History of CVA 9. History of BPH. 10. Severe calorie malnutrition. Ensure shakes have been ordered DVT prophylaxis Xarelto. GI prophylaxis Pepcid PT OT and social insurance adviser consulted I performed an examination of the patient and discussed their management with the Nurse Practitioner. I have reviewed the Nurse Practitioner's notes and agree with the documented findings and plan of care
--- NOTE | 2019-04-27 11:30 | PN ---
PROGRESS NOTE The patient is seen for followup for acute kidney injury. The patient's renal function has improved. Creatinine is down from 2.1 to 1.4 staying at about 1.4 now. We do have creatinine elevating about 1.5 to 1.4 in 2018 as well. Currently, patient is being treated for wounds on his sacral area as well as the left lower extremity. PHYSICAL EXAMINATION: On examination, blood pressure is 156/74, heart rate 50 per minute. He is afebrile. EXAMINATION OF THE HEART: S1 and S2. EXAMINATION OF THE LUNGS: Bilateral breath sounds are heard. Abdomen is soft, nontender. Examination of the lower extremities shows no significant edema. LABS: Labs show sodium 140, potassium 4.1, chloride 109, BUN 11, serum creatinine 1.46. ASSESSMENT: 1. Acute kidney injury secondary to sepsis, now improved. The patient is maintained on IV fluids which I will discontinue for now and he is encouraged to increase his oral intake. 2. Large sacral decub and hidradenitis suppurativa with gluteal wounds and cellulitis, maintained on antibiotics. 3. Hypovolemia, now improved. 4. Anemia of chronic disease. Check iron levels, rule out iron deficiency. Iron saturation was only 6.3. He is maintained on oral iron. I will maintain the patient on IV iron as well since he has been on antibiotics for some time now. PLAN: Discontinue IV fluids. Add IV iron. Repeat labs in a.m. MMODL / FLORIN: [id number] /
[2019-04-27 12:13] VITALS: BP 136/83; PULSE 60; RESP 17
--- NOTE | 2019-04-27 13:30 | PN ---
PROGRESS NOTE DATE OF SERVICE: 04/27/2019 REASON FOR FOLLOWUP: Bilateral gluteal wound with secondary cellulitis. INTERVAL HISTORY: The patient is currently afebrile. The patient has been breathing comfortably. Denies having any chest pain. No cough. No nausea or vomiting. No abdominal pain or pain to the bilateral gluteal wound area. PHYSICAL EXAMINATION: On examination, blood pressure 136/83 with a pulse of 60, temperature 97.8. He is 100% on room air. General description is an elderly male lying in bed in no distress. RESPIRATORY SYSTEM: Unlabored breathing, clear to auscultation anteriorly. HEART: S1, S2. Regular rate and rhythm. ABDOMEN: Soft, no tenderness. Bilateral gluteal wound , dressed up. No obvious drainage on the dressing. LABS: Hemoglobin is 8.4, white count 5.8, creatinine is 1.41. Wound culture anaerobic gram negative, Citrobacter, MRSA. DIAGNOSTIC IMPRESSION AND PLAN: Patient with bilateral gluteal wound, multiple from his hidradenitis suppurativa with secondary cellulitis. Culture revealed multiple pathogen. The patient is currently covered with Unasyn and vancomycin. Discharge antibiotic will be Cipro, Flagyl and doxycycline for 2 weeks. This was discussed with the nurse practitioner working on the discharge. Local wound care with Aquacel silver dressing. [facility]. MMODL / IJN: [id number] /
--- NOTE | 2019-04-27 15:11 | P.DS ---
Providers Date of admission: 04/21/19 18:37 Expected date of discharge: 04/27/19 Attending physician: Yanet Larkin Consults: 04/21/19 18:38 Consult Physician Routine Consulting Provider: Rosmery Mcrae Consult Reason/Comments: MANE, chronic anemia, R flank pain, hidradenitis Do you want consulting provider notified?: Yes 04/21/19 18:39 Consult Physician Routine Consulting Provider: Tino Gregory Consult Reason/Comments: MANE Do you want consulting provider notified?: Yes 04/22/19 09:49 Consult Physician Urgent Consulting Provider: Donnell Hernandez Consult Reason/Comments: chronic lower abdominal dissction Do you want consulting provider notified?: Yes Primary care physician: Rosmery Mcrae Hospital Course: Discharge diagnosis 1. Right flank pain. CT of abdomen and pelvis completed showing CHRONIC vascular disease. There is probably old minimum chronic lower abdominal aortic dissection. Mild aneurysm lower abdominal aorta. No acute abnormality in the abdomen and pelvis. Nonobstructing tiny right renal calculus. Patient was evaluated by Dr. Wright per vascular surgery patient should have yearly ultrasound of the aorta for surveillance purposes no intervention is required at this time from surgical standpoint oral anticoagulation may be resumed. Ultrasound of kidneys renal and bladder completed showing suspect changes of medical renal disease. pain has improved 2. Acute kidney injury. Creatinine elevated at 2.12. Per nephrology services likely prerenal. Normal saline maintained at 125. Creatinine improving to 1.47, does appear baseline for patient 3. Cellulitis of left gluteal fold positive for MRSA. Multiple open skin wounds related to patient's chronic condition of Hidradentits supprativa. Dr. Mcrae following for infectious disease. Patient started on Unasyn. Continue local wound care to bilateral gluteal wound with dry Aquacel silver dressing of ABDs to be changed daily. Per infectious disease wound culture showing MRSA. Daptomycin added. Per infectious disease patient will be transitioned to oral antibiotics upon discharge. Discussed case with Dr. Mcrae per infectious disease. Patient patient will be discharged on Cipro and Flagyl and doxycycline for 14 days. Patient to follow-up with wound care clinic at the [facility] for further management 4. History of MRSA in the skin wounds 5. Atrial fibrillation patient maintained on xarelto. Xarelto currently on hold until patient is evaluated by vascular surgery 6. Anemia with known iron deficiency anemia. Patient is maintained on ferrous sulfate current hemoglobin 8.6 his does appear patient's baseline. IV iron has been ordered per nephrology services 7. History of essential hypertension 8. History of CVA 9. History of BPH. 10. Severe calorie malnutrition. Ensure shakes have been ordered Hospital course This is a 73-year-old male patient of Dr. Mcrae. Patient presents with main complaint of right flank pain patient reports this is been going on for 2 days. Patient reports that the pain is constant. Patient denies any radiation of pain. Patient denies any fever nausea vomiting or diarrhea. Patient does have a past medical history of atrial fibrillation in which he is on Cymbalta, CVA, chronic anemia, hyperlipidemia, hypertension, pneumonia, MRSA, Hydradenitis suppurativa and when she has multiple open wounds on his body patient follows with dermatology and Dr. Martínez for this issue. CT of abdomen and pelvis completed showing arthrosclerotic vascular disease. There is probably old minimum chronic lower abdominal aortic dissection mild aneurysm lower abdominal aorta. No acute abnormality in the abdomen and pelvis nonobstructing tiny right renal calculus. Patient's creatinine also elevated at 2.12 and bun 24. At this time Dr. Mcrae will be consulted, nephrology services and vascular surgery. Patient is currently resting comfortably in bed pain is controlled with pain medication. Patient denies chest pain or shortness of breath. Patient denies nausea vomiting or diarrhea. Patient denies any burning with urination. On 04/23/2019 patient alert and oriented 3. Patient was evaluated by vascular surgery for abdominal aortic aneurysm. Per vascular surgery patient should have yearly ultrasound of the aorta for surveillance purposes no intervention is required at this time patient may be restarted on oral anticoagulation. Patient also started on Unasyn per infectious disease for chronic nonhealing wound bilateral gluteal areas from underlining hydradenitis supportive. Cultures obtained. At this time patient denies chest pain or shortness of breath. Patient denies nausea vomiting or diarrhea. Patient denies any urinary burning or frequency On 04/24/2019 patient was seen and examined on the medical floor he is alert and oriented 3 in no apparent distress he denies any complaints at this time there is no fever or chills no headache or dizziness no chest pain no shortness of breath no cough no nausea or vomiting no abdominal pain no diarrhea and no urinary symptoms On 04/25/2019 patient was seen and examined on the medical floor, he is feeling well and denies any symptoms at this time there is no fever or chills no headache or dizziness no chest pain no shortness of breath no cough no nausea or vomiting no abdominal pain no diarrhea no burning with urination no frequency or urgency no hematuria On 04/26/2019 patient is alert and oriented 3. Wound culture positive for MRSA. Daptomycin added per infectious disease. She reports improvement with abdominal and back pain. Patient denies chest pain or shortness breath. Patient denies nausea vomiting or diarrhea. Patient denies any urinary burning or frequency On 04/27/2019 patient's alert and oriented 3. Patient remains on daptomycin. Per infectious disease patient to receive IV antibiotics for a day or 2 and then transition to oral antibiotics for discharge. Continue local wound care with Aquacel dressing. At this time patient denies chest pain or shortness of breath. Patient denies nausea vomiting or diarrhea. Patient denies any urinary burning or frequency Discussed case with infectious disease Dr. Mcrae. Patient has been cleared for discharge. Patient to receive last dose of daptomycin prior to discharge. Patient will be DC'd on 3 antibiotics including Cipro Flagyl and doxycycline. She to follow in wound care clinic [facility]. Patient to also follow up with PCP for further management of aortic aneurysm. Creatinine has returned to baseline. Patient to follow with PCP for further management. At this time patient has been up ambulating unassisted. Patient denies chest pain or shortness of breath. Patient denies nausea vomiting or diarrhea. Patient denies any urinary burning or frequency I performed an examination of the patient and discussed their management with the Nurse Practitioner. I have reviewed the Nurse Practitioner's notes and agree with the documented findings and plan of care Patient Condition at Discharge: Stable Plan - Discharge Summary Discharge Rx Participant: Yes New Discharge Prescriptions: New Ciprofloxacin HCl [Cipro] 250 mg PO Q12HR 14 Days #28 tablet metroNIDAZOLE [Flagyl] 500 mg PO Q8HR 14 Days #42 tab Doxycycline [Vibramycin] 100 mg PO BID 14 Days #28 cap Continue Metoprolol Succinate (ER) [Toprol XL] 100 mg PO HS Finasteride [Proscar] 5 mg PO DAILY Aspirin EC [Ecotrin Low Dose] 81 mg PO HS Ferrous Sulfate [Feosol] 325 mg PO BID Rivaroxaban [Xarelto] 20 mg PO DAILY Ergocalciferol (Vitamin D2) [Drisdol] 50,000 unit PO Q7D Discharge Medication List Aspirin EC [Ecotrin Low Dose] 81 mg PO HS 03/04/18 [History] Ferrous Sulfate [Feosol] 325 mg PO BID 03/04/18 [History] Finasteride [Proscar] 5 mg PO DAILY 03/04/18 [History] Metoprolol Succinate (ER) [Toprol XL] 100 mg PO HS 03/04/18 [History] Ergocalciferol (Vitamin D2) [Drisdol] 50,000 unit PO Q7D 04/21/19 [History] Rivaroxaban [Xarelto] 20 mg PO DAILY 04/21/19 [History] Ciprofloxacin HCl [Cipro] 250 mg PO Q12HR 14 Days #28 tablet 04/27/19 [Rx] Doxycycline [Vibramycin] 100 mg PO BID 14 Days #28 cap 04/27/19 [Rx] metroNIDAZOLE [Flagyl] 500 mg PO Q8HR 14 Days #42 tab 04/27/19 [Rx] Follow up Appointment(s)/Referral(s): Rosmery Mcrae MD [Primary Care Provider] - 1-2 days Activity/Diet/Wound Care/Special Instructions: Patient to follow-up at [facility] #[phone] Please hold ferrous sulfate until completion of doxycycline Discharge Disposition: HOME SELF-CARE
[2019-04-28] MEDS ORDERED: SODIUM FERRIC GLUCONAT-SUCROSE 125 MG in SODIUM CHLORIDE 0.9% 100 ML IVPB SCH (09:00)
--- NOTE | 2019-04-28 10:51 | CDI ---
Documentation Clarification Form Date: 04/28/19 From: Radha Lombardo Phone: If you have a question regarding this query, please contact Lelia Valerio at [phone] Admit Date: 04/21/2019 6:37:00 PM Patient Name: Geovanny Bruno Visit Number: [id number] Discharge Date: 04/27/2019 4:20:00 PM ATTENTION: The Clinical Documentation Specialists (CDI) and [facility] Coding Staff appreciate your assistance in clarifying documentation. Please respond to the clarification below the line at the bottom and electronically sign. The CDI & [facility] Coding staff will review the response and follow-up if needed. Please note: Queries are made part of the Legal Health Record. If you have any questions, please contact the author of this message via ITS. Dr. Yanet Larkin Nephrology documented in their progress notes that the patient was admitted to the hospital with a wound on the sacral area and sepsis. Also, that the patient had MANE secondary to sepsis. However, you never documented sepsis. History/Risk Factors: Cellulitis, sacral wounds Clinical Indicators: MANE WBC: 9.7 Lactic acid: Not tested Blood cultures: Blood cultures not done Vitals signs on admission: T. 97.9, P. 79, R. 18, BP 126/74 ID Consult: Dr. Mcrae documented gluteal wound with secondary cellulitis from hydradenitis suppurativa but did not document sepsis. Antibiotics: IV Unasyn, IV Daptomycin IV Bolus: 2 liters In your professional opinion, please clarify if these findings signify one of the following conditions, whether the condition is POA, and cause, if known: Condition Sepsis ruled out SIRS, without underlying infectious process Sepsis Other, please specify Unable to determine Sepsis ruled out MTDD
== END 2019-04-27 16:20 | disposition home or self-care (01) | DRG 602 ==
LOC: EC 13:22 → 3NMEDONC 18:37
PROVIDERS: ADMIT Internal Medicine; ATTEND Internal Medicine
DX: L03.317 Cellulitis of buttock (principal); E43 Unspecified severe protein-calorie malnutrition; I71.02 Dissection of abdominal aorta; N17.0 Acute kidney failure with tubular necrosis; N28.0 Ischemia and infarction of kidney; I74.09 Other arterial embolism and thrombosis of abdominal aorta; I48.0 Paroxysmal atrial fibrillation; D73.5 Infarction of spleen; E86.0 Dehydration; E86.1 Hypovolemia; I73.9 Peripheral vascular disease, unspecified; B95.62 Methicillin resistant Staphylococcus aureus infection as the cause of diseases classified elsewhere; D63.8 Anemia in other chronic diseases classified elsewhere; N18.3 Chronic kidney disease, stage 3 (moderate); E78.5 Hyperlipidemia, unspecified; I12.9 Hypertensive chronic kidney disease with stage 1 through stage 4 chronic kidney disease, or unspecified chronic kidney disease; I71.4 Abdominal aortic aneurysm, without rupture; L73.2 Hidradenitis suppurativa; N20.0 Calculus of kidney; N40.0 Benign prostatic hyperplasia without lower urinary tract symptoms; Z68.29 Body mass index [BMI] 29.0-29.9, adult; Z79.01 Long term (current) use of anticoagulants; Z79.899 Other long term (current) drug therapy; Z79.82 Long term (current) use of aspirin; Z86.14 Personal history of Methicillin resistant Staphylococcus aureus infection; Z86.73 Personal history of transient ischemic attack (TIA), and cerebral infarction without residual deficits; Z87.01 Personal history of pneumonia (recurrent); Z90.49 Acquired absence of other specified parts of digestive tract; Z87.891 Personal history of nicotine dependence; Z80.0 Family history of malignant neoplasm of digestive organs
CPT/HCPCS: 36415; 71046; 74176; 76770; 80048; 80053; 81001; 82150; 83540; 83550; 83690; 83735; 85025; 86334; 86335; 87070; 87075; 87077; 87186; 87205; 96361; 96374; 99285